=== PATIENT | male | born 1955 | race Caucasian/White ===

== ENCOUNTER → 2018-01-20 09:50 | Outpatient (CLI) | payer OTHER, SELFPAY ==
[2018-01-20 12:39] LABS: Absolute Lymphocyte Count 0.87 X10^3/ul (0.83-4.51); Absolute Neutrophil Count 4.4 X10^3/uL (2.0-7.7); Basophil# 0.01 X10^3/uL; Basophil% 0.2 % (0-1); Eosinophil# 0.24 X10^3/uL; Eosinophils% 3.9 % (0-5); Hematocrit 42.6 % (40-54); Hemoglobin 14.6 g/dl (13.0-16.5); Lymphocyte # 0.87 X10^3/ul (4.0); Lymphocyte % 14.2 % (19-41); Mean Corp Hgb Conc 34.3 g/gl (32-36); Mean Corpuscular Volume 90.4 fL (80-94); Mean Platelet Vol. 9.7 fl (6.2-12.0); Monocyte# 0.63 X10^3/uL; Monocyte% 10.3 % (0-10); Neutrophil # 4.35 X10^3/uL (2.7-7.7); Neutrophil % 71.2 % (47-70); Platelet Count 156 K/mm3 (150-450); RBC Distribution Width CV 13.1 % (11.6-14.6); RBC Distribution Width SD 43.3 fl (35.1-43.9); Red Blood Count 4.71 M/mm3 (4.6-6.2); White Blood Count 6.1 K/mm3 (4.4-11.0)
[2018-01-20 13:08] LABS: ALB/GLOB Ratio 1.1 RATIO (0.9-2.4); AST(SGOT) 15 U/L (15-37); Alanine Aminotransfer ALT/SGPT 33 U/L (16-61); Albumin, Serum 3.8 g/dL (3.2-5.0); Alkaline Phosphatase 59 U/L (45-117); BUN 21 mg/dL (7-18); BUN/Creat Ratio 25.1 RATIO (10-20); Calcium,Total 8.5 mg/dL (8.5-10.1); Chloride 110 mmol/L (98-107); Cholesterol 122 mg/dL (200); Creatinine, Serum 0.84 mg/dL (0.70-1.30); EST Glomerular Filtration Rate 99 mL/min (>60); Est Glom Filt Rate - Afr Amer 119 mL/min (>60); Globulin 3.4 g/dL (2.2-4.2); Glucose 105 mg/dL (74-106); Potassium 4.1 mmol/L (3.5-5.1); Protein, Total 7.2 g/dL (6.4-8.2); Sodium Level 141 mmol/L (136-145); Triglycerides 93 mg/dL
[2018-01-20 13:09] LABS: Anion Gap 8 (5-15); High Density Lipoprotein 39 mg/dL; PSA,Total - Annual Screen 1.13 ng/mL (0.00-4.00); Very Low Density Lipoprotein 19 mg/dL (5-40)
[2018-01-20 13:10] LABS: POSITIVE COUNT NO; POSITIVE DIFFERENTIAL NO; POSITIVE MORPHOLOGY NO
== END ==
PROVIDERS: Family Provider Family Medicine; PCP Family Medicine; Visit Provider Family Medicine
DX: I25.10 Atherosclerotic heart disease of native coronary artery without angina pectoris (principal); I10 Essential (primary) hypertension; E78.5 Hyperlipidemia, unspecified; Z12.5 Encounter for screening for malignant neoplasm of prostate
CPT/HCPCS: 36415; 80053; 80061; 84153; 85025; G0103

== ENCOUNTER → 2018-12-01 06:41 | Outpatient (CLI) | payer OTHER, SELFPAY ==
--- NOTE | 2018-12-01 08:39 | STRESSREP_ITS ---
Stress Test Report Date: 12-01-18 Procedure: Exercise tolerance test/imaging study Indications: Shortness of breath/dyspnea on exertion; CAD; status post PCI Consent: Per the patient Procedure: The patient exercised on a Evan protocol for 8 minutes completing Stage II and 2 minutes of Stage III achieving a peak heart rate of 155 bpm (99 % predicted maximal heart rate) with a peak blood pressure 182/80 mmHg and a peak MET capacity of 9 METs. The baseline ECG demonstrated sinus bradycardia. The peak exercise ECG demonstrated no obvious ECG changes. There were occasional PVCs during exercise. The functional capacity was considered good. There was [no complaint of chest discomfort during exercise or recovery]. The examination was discontinued secondary to shortness of breath/dyspnea. Impression: 1. Technically adequate (percent predicted maximal heart rate greater than 85%) exercise tolerance test 2. Peak exercise ECG demonstrated no obvious ECG changes 3. There were occasional PVCs during exercise 4. Nuclear images pending Myocardial perfusion imaging study: Technique: The patient was injected with 14.3 mCi of technetium 99m Cardiolite and subsequently rest SPECT Cardiolite nuclear imaging was obtained in the horizontal long, vertical long, and short axis views. The patient exercised on a Evan protocol for 8 minutes completing Stage II and 2 minutes of Stage III achieving a peak heart rate of 155 bpm (99 % predicted maximal heart rate) with a peak blood pressure 182/80 mmHg and a peak MET capacity of 9 METs. The patient was injected with 44.6 mCi of technetium 99m Cardiolite and subsequently stress SPECT Cardiolite nuclear imaging was obtained in the horizontal long, vertical long, and short axis views. A gated Cardiolite study at peak stress was obtained. Interpretation: Rest and stress SPECT Cardiolite nuclear imaging status post realignment, normalization, and attenuation correction, demonstrates a small area of subtle diminished tracer uptake near the apical segments at rest which appear to improve and/or normalize following stress. [There is end systolic thickening and brightening]. The gated Cardiolite study demonstrates [myocardial thickening and inward wall motion]. The reported LVEF is 61 %. Impression: 1. Rest and stress SPECT Cardiolite nuclear imaging demonstrate a small area of subtle diminished tracer uptake near the apical segments at rest which appeared to improve and/or normalize following stress compatible shifting soft tissue attenuation/artifact with no obvious myocardial perfusion changes considered diagnostic for associated stress-induced myocardial ischemia. 2. The gated Cardiolite study reports an LVEF of 61 %. This note was generated with [employer] software. It may contain incorrect words, spelling, and punctuation that were not noted in checking the note before signing.
== END ==
PROVIDERS: Family Provider Family Medicine; PCP Family Medicine
DX: I25.10 Atherosclerotic heart disease of native coronary artery without angina pectoris (principal); E78.5 Hyperlipidemia, unspecified; I10 Essential (primary) hypertension; K21.9 Gastro-esophageal reflux disease without esophagitis; N52.9 Male erectile dysfunction, unspecified; R06.02 Shortness of breath; Z68.30 Body mass index [BMI] 30.0-30.9, adult
CPT/HCPCS: 78452; 93017; A9500; A4216

== ENCOUNTER → 2019-05-25 08:45 | Outpatient (CLI) | payer OTHER, SELFPAY ==
[2019-01-12 08:35] VITALS: BMI 35.6
[2019-05-25 12:43] LABS: Absolute Lymphocyte Count 0.96 X10^3/uL (0.83-4.51); Absolute Neutrophil Count 5.1 X10^3/uL (2.0-7.7); Basophil# 0.02 X10^3/uL; Basophil% 0.3 % (0-1); Eosinophil# 0.26 X10^3/uL; Eosinophils% 3.6 % (0-5); Hematocrit 44.7 % (40-54); Lymphocyte # 0.96 X10^3/ul (4.0); Lymphocyte % 13.3 % (19-41); Mean Corp Hgb Conc 33.6 g/dL (32-36); Mean Corpuscular Hgb 31.1 pg (27.0-32.0); Mean Corpuscular Volume 92.7 fL (80-94); Mean Platelet Vol. 9.5 fl (6.2-12.0); Monocyte% 12.5 % (0-10); NRBC Flagged by Analyzer 0 % (0-5); Neutrophil # 5.06 X10^3/uL (2.7-7.7); Platelet Count 170 K/mm3 (150-450); RBC Distribution Width CV 12.4 % (11.6-14.6); RBC Distribution Width SD 42.8 fl (35.1-43.9); Red Blood Count 4.82 M/mm3 (4.6-6.2); White Blood Count 7.2 K/mm3 (4.4-11.0)
[2019-05-25 13:19] LABS: ALB/GLOB Ratio 1.1 RATIO (0.9-2.4); AST(SGOT) 15 U/L (15-37); Alanine Aminotransfer ALT/SGPT 35 U/L (16-61); Alkaline Phosphatase 62 U/L (45-117); Anion Gap 8 (5-15); BUN 17 mg/dL (7-18); BUN/Creat Ratio 19.1 RATIO (10-20); Calcium,Total 8.9 mg/dL (8.5-10.1); Chloride 109 mmol/L (98-107); Cholesterol 121 mg/dL (200); Creatinine, Serum 0.89 mg/dL (0.70-1.30); EST Glomerular Filtration Rate 92 mL/min (>60); Est Glom Filt Rate - Afr Amer 111 mL/min (>60); Globulin 3.5 g/dL (2.2-4.2); Glucose 106 mg/dL (74-106); High Density Lipoprotein 38 mg/dL; PSA,Total - Annual Screen 1.38 ng/mL (0.00-4.00); Potassium 4.5 mmol/L (3.5-5.1); Protein, Total 7.5 g/dL (6.4-8.2); Sodium Level 140 mmol/L (136-145); Triglycerides 127 mg/dL; Very Low Density Lipoprotein 25 mg/dL (5-40)
== END ==
PROVIDERS: Family Provider Family Medicine; PCP Family Medicine; Visit Provider Family Medicine
DX: Z00.00 Encounter for general adult medical examination without abnormal findings (principal); Z12.5 Encounter for screening for malignant neoplasm of prostate
CPT/HCPCS: 36415; 80053; 80061; 84153; 85025; G0103

== ENCOUNTER → 2019-05-25 09:01 | Outpatient (CLI) | payer OTHER, SELFPAY ==
[2019-01-12 08:35] VITALS: BMI 35.6
--- NOTE | 2019-05-25 09:06 | RAD_ITS ---
STUDY: X-RAY - PELVIS AND RIGHT HIP REASON FOR EXAM: Male, 63 years old. Pain. No known injury. TECHNIQUE: 3 views of the pelvis and hip. COMPARISON: None. FINDINGS: There is a non-specific bowel gas pattern. Evidence of prior ventral and inguinal hernia repair. Normal bilateral iliac wings, sacroiliac joints and visualized sacrum. Normal bilateral superior and inferior pubic rami. Normal pubic symphysis. Normal bilateral ischial tuberosities. Normal visualized femoral head. Normal acetabulum. Normal hip joint. RAD/HIP, UNI W/ Pelvis 2-3 Views IMPRESSION: Normal x-ray examination of the pelvis and hip. Electronically Signed: Huber Castellanos, at 11:38 EDT , Service support ,
== END ==
PROVIDERS: Family Provider Family Medicine; PCP Family Medicine; Referring Provider Family Medicine; Visit Provider Family Medicine
DX: M16.11 Unilateral primary osteoarthritis, right hip (principal)
CPT/HCPCS: 73502

== ENCOUNTER → 2019-06-01 10:13 | Outpatient (CLI) | payer OTHER, SELFPAY ==
[2019-01-12 08:35] VITALS: BMI 35.6
--- NOTE | 2019-06-01 10:19 | RAD_ITS ---
STUDY: X-RAY - RIGHT KNEE REASON FOR EXAM: Male, 63 years old. Knee pain TECHNIQUE: 4 view(s) of the knee. COMPARISON: None. FINDINGS: Normal visualized distal femur. Normal visualized proximal tibia and fibula. Normal proximal tibiofibular articulation. Normal medial femorotibial compartment. Normal lateral femorotibial compartment. Normal patellofemoral articulation. The soft tissue structures are unremarkable. RAD/Knee 4 or More Views IMPRESSION: Normal x-ray examination of the knee. Electronically Signed: Rosmery Moody, at 17:48 EDT Tel , Service support ,
== END ==
PROVIDERS: Family Provider Family Medicine; PCP Family Medicine; Referring Provider Family Medicine; Visit Provider Family Medicine
DX: M25.561 Pain in right knee (principal)
CPT/HCPCS: 73564

== ENCOUNTER 2019-06-15 08:20 | Day surgery (SDC) | payer OTHER, SELFPAY ==
--- NOTE | 2019-06-01 03:55 | HP_ITS ---
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 Is patient in pain?: No Allergies Penicillins Allergy (Verified 06/01/19 13:42) Anaphylaxis atorvastatin [From Lipitor] Adverse Reaction (Verified 06/01/19 13:42) myalgia cefaclor [From Ceclor] Adverse Reaction (Verified 06/01/19 13:42) Unknown Opioids - Morphine Analogues Adverse Reaction (Verified 06/01/19 13:42) bradycardia tetracycline Adverse Reaction (Verified 06/01/19 13:42) Unknown Medications aspirin 81 mg tablet,delayed release 81 mg PO DAILY 01/11/19 [History Confirmed 06/01/19] coenzyme Q10 100 mg capsule 100 mg PO DAILY 01/11/19 [History Confirmed 06/01/19] multivitamin tablet 1 tab PO DAILY 01/11/19 [History Confirmed 06/01/19] nitroglycerin 0.4 mg sublingual tablet 0.4 mg SUBLINGUAL Q5-15M PRN 30 Days #8640 tab 01/11/19 [History Confirmed 06/01/19] trazodone 100 mg tablet PO 30 Days tab 01/11/19 [History Confirmed 06/01/19] ezetimibe 10 mg-simvastatin 20 mg tablet 1 tab PO DAILY 90 Days #90 tab 01/12/19 [Rx Confirmed 06/01/19] lisinopril 5 mg tablet 5 mg PO QPM 90 Days #90 tab 01/12/19 [Rx Confirmed 06/01/19] metoprolol tartrate 25 mg tablet 25 mg PO BID 90 Days #180 tab 01/12/19 [Rx Confirmed 06/01/19] pantoprazole 40 mg tablet,delayed release 40 mg PO QAM 30 Days #30 tab 01/12/19 [History Confirmed 06/01/19] omega-3 fatty acids 1,000 mg capsule 1,200 mg PO TID cap 06/01/19 [History Confirmed 06/01/19] sertraline 50 mg tablet 50 mg PO DAILY 30 Days #30 tab 06/01/19 [History Confirmed 06/01/19] PFS Medical History Atherosclerosis of coronary artery of [place] heart without angina pectoris (Chronic) Essential (primary) hypertension (Chronic) Dyslipidemia (Chronic) Heart attack (Acute) Erectile dysfunction (Chronic) GERD (gastroesophageal reflux disease) (Chronic) Obesity (Chronic) Surgical History History of coronary artery stent placement (Resolved 07/07/07) History of herniorrhaphy (Resolved) History of left heart catheterization (Resolved 10/03/17) Family History Brother Heart disease Brother Heart disease Father Cancer Mother CAD (coronary artery disease) CABGx x 3 Social History (Updated 06/01/19 @ 15:55 by Anson Watson MD) Smoking Status: Former smoker HPI HPI HPI: SALTY MARTÍNEZ, is a 63 M who presents to the office today for HPI HPI Surgical H&P: Yes HPI: SALTY MARTÍNEZ, is a 63 M who presents to the office today for surgical consultation regarding colon polyps. Very pleasant 63-year-old gentleman who presents today to help pursue a colonoscopy. He has had 2 previous colonoscopies one performed by Dr. Alejandro Ulloa and the most recent one performed by Dr. Chidi Moreno on May 14, 2016. The patient has no family history of colon cancer. On the most recent colonoscopy however there were 310 mm polyps identified. These were found in the transverse colon distally. They were removed with hot snare. Multiple diverticula of the sigmoid colon identified. The pathology set suggested tubular adenoma and there were 2 specimens received. The patient denies bright red blood per rectum or melena. No abdominal pain. 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 Patient does have a history of 2 remote coronary stents. Medications include aspirin and fish oil. He has been asked to hold the fish oil. This very pleasant is a [employer] employee It is of additional note that the patient describes 5 previous episodes of suspected sigmoid diverticulitis. Patient does not recall particular food as a causative agent. He currently denies abdominal pain. He has had at least 2 significant courses of ciprofloxacin metronidazole in the past to assist ROS General General: No weight change, appetite, fatigue, colon cancer, breast cancer or weakness HEENT HEENT: No difficulty swallowing, eye injury, eye surgery, swollen glands or hoarseness Endo Endocrine: No thyroid disease, diabetes mellitus, thyroid cancer, Hair loss, heat intolerance or cold intolerance Skin Skin: No rash or changing moles Breast Breast: No left breast lump, right breast lump, nipple discharge, breast pain, abnormal mammogram, abnormal US or breast enlargement Musc Musculoskeletal: No back problems, arthritis, rheumatoid arthritis, gout or joint pain Cardio Cardiovascular: Yes heart disease, high blood pressure, heart attack and heart stent; no murmur, pacemaker, atrial fibrillation, palpitations, shortness of breat with exertion or chest pain Psych Psychiatric: Yes anxiety; no depression or hearing voices Resp Respiratory: No shortness of breath, No sleep apnea, No cough, No COPD, No asthma, No emphysema, No wheezing Gastro Gastrointestinal: No abdominal pain, No nausea or vomiting, No diarrhea, No constipation, No blood in stool, Yes acid reflux, No hemorrhoids, No ulcers, No gallbladder problem, No black,tarry stools Brady Hematologic: Yes blood thinners, No blood disorders, No bleeding, No anemia, No blood clots Neuro Neurologic: No system reviewed and no additional complaints, except as docu, No as per HPI, No abnormal walking, No abnormal hearing, No abnormal movements, No abnormal speech, No behavioral changes, No burning sensations, No confusion, No seizure-like activity, No unsteadiness, No dizziness, No localized weakness, No frequent falls, No headache(s), No lack of coordination, No loss of vision, No memory loss, No numbness, No other visual disturbances, No radiating pain, No restless legs, No sensory deficit, No fainting, No tingling, No tremor(s), No weakness, No other Exam Const General: cooperative, healthy appearing, comfortable, no acute distress Nutritional Appearance: obese Orientation: alert, awake HENMT Head: normal to inspection Chest Breast Palpation: No nipple discharge Resp Effort & Inspection: normal respiratory effort Cardio Rate: regular rate Rhythm: regular rhythm Heart Sounds: no murmurs GI Other: Overweight, normal bowel sounds, not pulsatile, very minimal tenderness to deep palpation left lower quadrant Skin General: no rashes or lesions noted Neuro Cognition: normal cognition Extrem General: no calf tenderness bilaterally Psych Affect: normal affect Assessment & Plan Problems 1. Personal history of colonic polyps Z86.010 Plan I recommended the patient a colonoscopy with possible biopsy or polypectomy as indicated. As noted we will have him hold his fish oil. He may remain on his low-dose aspirin. He is aware of the technique, benefits, risks, alternatives. He states that he was essentially awake during his most recent colonoscopy. We will utilize monitored anesthesia care. He has had an opportunity to ask and have questions answered. We will schedule and proceed at his discretion. I very much appreciate the kind opportunity of assisting with his surgical care. CC: Dr. Shan Watson M.D., F.A.C.S. Coding Level of Care Code Off vis,new,level 3 Diagnoses Personal history of colonic polyps Z86.010 06/01/19 [id number] <Electronically signed by Anson rodriguez MD> Date _ Anson Watson MD I have re-examined the patient. There are no clinical changes since date of exam.
[2019-06-01 13:52] VITALS: BMI 35.6
[2019-06-15] VITALS (9 sets, daily range): BP systolic 84–132; BP diastolic 69–79; PULSE 52–80; RESP 16; TEMP 36–36.5; O2SAT 94–98; BMI 35.8
[2019-06-15] MEDS: Lactated Ringers 1,000 ML 100 ML IV (09:01)
--- NOTE | 2019-06-15 09:30 | COLBX_PTH ---
PATIENT: SALTY MARTÍNEZ LOC: EN U#:[id number] AGE/SX: 63/M ROOM: RE06/15/[address]: Dr. Anson Watson MD : 1955 BED: DIS: 06/15/2019 SPEC #: [id number] RECD: 06/15/19 10:44 STATUS: HUAN REIsabela #: [id number] JOJO: 06/15/19 09:[address]: Anson Watson DEPT: SURGICAL PATHOLOGY RECD BY: Mohan Garcia ENTERED: 06/15/19 11:06 SP TYPE: COLON BX OT DR: Dr. hSan Shelton DO Tissues: A - Sigmoid colon biopsy B - Rectum, NOS Procedures: Surgery Specimen Level IV HEADER OPERATION: Colonoscopy (MAC) PRE-OP DIAGNOSIS: Colonic polyps TISSUE SUBMITTED: A - Mid sigmoid biopsy mucosal fullness, B - Proximal rectum polyp biopsy MICROSCOPIC DIAGNOSIS A. Mid sigmoid colon, biopsy: Fragments of colonic mucosa with no pathologic change. B. Rectal polyp, biopsy: Hyperplastic polyp. AM:mechelle 06/18/19 MICROSCOPIC DESCRIPTION Slides are reviewed. GROSS DESCRIPTION A - Received in fixative is one container labeled with the patient's name and designated mid sigmoid biopsy mucosal fullness. The specimen consists of one irregular fragment of [place] soft tissue that measures 0.4 x 0.3 x 0.1 cm. The specimen is totally submitted in one cassette. B - Received in fixative is one container labeled with the patient's name and designated proximal rectum polyp biopsy. The specimen consists of one irregular fragment of [place] soft tissue that measures 0.3 x 0.2 x 0.1 cm. The specimen is totally submitted in one cassette. / SJ:mechelle 06/15/19 TC:5 [facility]: [id number] x2
--- NOTE | 2019-06-15 10:20 | OP.ENDO_ITS ---
06/15/2019 Shan Shelton [address] [place] [address] Re : Colonoscopy procedure for Jerad Iqbal Dear Dr. Shelton This procedure was performed on Saturday, June 15, 2019. My impressions and recommendations are as follows: Impressions : - Hemorrhoids found on perianal exam. - Diverticulosis in the entire examined colon. - One 3 mm mucosal fullness in the mid sigmoid colon, removed with a cold biopsy forceps. Resected and retrieved. - One 4 mm polyp in the rectum, removed with a cold biopsy forceps. Resected and retrieved. Recommendations : - Discharge patient to home. - Resume previous diet. - Continue present medications. - Repeat colonoscopy in 5 years for surveillance based on pathology results. - Telephone my office for pathology results in 1 week. My findings are described in the full procedure note, which is enclosed. If I can be of further assistance, please feel free to contact me at Doctor phone number(s): Work: . Sincerely, Anson Watson MD 06/15/2019 10:19:41 AM This report has been signed electronically.
== END 2019-06-15 11:14 | disposition home or self-care (01) ==
LOC: EN 08:21 → AC 08:26
PROVIDERS: Family Provider Family Medicine; PCP Family Medicine; Referring Provider Family Medicine; Visit Provider Surgery
PROC: 0DJD8ZZ Inspection of Lower Intestinal Tract, Via Natural or Artificial Opening Endoscopic (ICD-10-PCS; CPT 45378; principal; 2019-06-15 09:25)
DX: Z12.11 Encounter for screening for malignant neoplasm of colon (principal); Z86.010 Personal history of colon polyps; I25.10 Atherosclerotic heart disease of native coronary artery without angina pectoris; I10 Essential (primary) hypertension; E78.5 Hyperlipidemia, unspecified; I25.2 Old myocardial infarction; K21.9 Gastro-esophageal reflux disease without esophagitis; E66.9 Obesity, unspecified; Z68.36 Body mass index [BMI] 36.0-36.9, adult; Z79.899 Other long term (current) drug therapy; Z79.82 Long term (current) use of aspirin; Z87.891 Personal history of nicotine dependence; K57.30 Diverticulosis of large intestine without perforation or abscess without bleeding; Z95.5 Presence of coronary angioplasty implant and graft; K62.1 Rectal polyp; K64.9 Unspecified hemorrhoids
CPT/HCPCS: 45380; 88305; J7120; J2405

== ENCOUNTER → 2020-03-25 13:18 | Outpatient (CLI) | payer OTHER, MEDICARE, SELFPAY ==
[2020-01-18 10:29] VITALS: BMI 27.8
[2020-03-30 20:07] LABS: Testosterone, Free 7.04 ng/dL (5.00-21.00)
[2020-03-30 22:57] LABS: Testosterone, % Free 2.09 % (1.50-4.20); Testosterone, Total 337 ng/dL (264-916)
== END ==
PROVIDERS: PCP Family Medicine; Visit Provider Family Medicine
DX: N52.9 Male erectile dysfunction, unspecified (principal)
CPT/HCPCS: 36415; 84402; 84403

== ENCOUNTER → 2020-06-10 08:38 | Outpatient (CLI) | payer OTHER, SELFPAY ==
[2020-01-18 10:29] VITALS: BMI 27.8
[2020-06-10 11:48] LABS: Absolute Lymphocyte Count 1.55 X10^3/uL (0.83-4.51); Absolute Neutrophil Count 4.3 X10^3/uL (2.0-7.7); Basophil# 0.04 X10^3/uL; Basophil% 0.6 % (0-1); Eosinophil# 0.32 X10^3/uL; Eosinophils% 4.5 % (0-5); Hematocrit 46.2 % (40-54); Hemoglobin 15.2 g/dL (13.0-16.5); Lymphocyte # 1.55 X10^3/ul (4.0); Lymphocyte % 21.8 % (19-41); Mean Corp Hgb Conc 32.9 g/dL (32-36); Mean Corpuscular Hgb 30.8 pg (27.0-32.0); Mean Corpuscular Volume 93.5 fL (80-94); Mean Platelet Vol. 9.5 fl (6.2-12.0); Monocyte# 0.86 X10^3/uL; Monocyte% 12.1 % (0-10); NRBC Flagged by Analyzer 0 % (0-5); Neutrophil # 4.31 X10^3/uL (2.7-7.7); Neutrophil % 60.7 % (47-70); Platelet Count 197 K/mm3 (150-450); RBC Distribution Width CV 12.5 % (11.6-14.6); RBC Distribution Width SD 43.1 fl (35.1-43.9); Red Blood Count 4.94 M/mm3 (4.6-6.2); White Blood Count 7.1 K/mm3 (4.4-11.0)
[2020-06-10 12:07] LABS: AST(SGOT) 22 U/L (15-37); Alanine Aminotransfer ALT/SGPT 41 U/L (16-61); Albumin, Serum 3.8 g/dL (3.2-5.0); Alkaline Phosphatase 70 U/L (45-117); Anion Gap 7 (5-15); BUN 25 mg/dL (7-18); BUN/Creat Ratio 24.5 RATIO (10-20); Chloride 109 mmol/L (98-107); Cholesterol 128 mg/dL (200); Creatinine, Serum 1.02 mg/dL (0.70-1.30); EST Glomerular Filtration Rate 78 mL/min (>60); Est Glom Filt Rate - Afr Amer 94 mL/min (>60); Globulin 3.8 g/dL (2.2-4.2); Glucose 113 mg/dL (74-106); High Density Lipoprotein 41 mg/dL; PSA,Total - Annual Screen 1.57 ng/mL (0.00-4.00); Potassium 4.3 mmol/L (3.5-5.1); Protein, Total 7.6 g/dL (6.4-8.2); Sodium Level 140 mmol/L (136-145); Triglycerides 132 mg/dL; Very Low Density Lipoprotein 26 mg/dL (5-40)
[2020-06-11 09:52] LABS: Hemoglobin A1c 5.6 % (3.8-5.6)
== END ==
PROVIDERS: PCP Family Medicine; Visit Provider Family Medicine
DX: I10 Essential (primary) hypertension (principal); E78.5 Hyperlipidemia, unspecified; Z12.5 Encounter for screening for malignant neoplasm of prostate; R73.01 Impaired fasting glucose
CPT/HCPCS: 36415; 80053; 80061; 83036; 84153; 85025; G0103

== ENCOUNTER → 2020-10-24 14:48 | Outpatient (CLI) | payer SELFPAY ==
[2020-01-18 10:29] VITALS: BMI 27.8
== END ==
PROVIDERS: PCP Family Medicine; Visit Provider Family Medicine
DX: R31.9 Hematuria, unspecified (principal)
CPT/HCPCS: 87086

== ENCOUNTER → 2021-01-20 10:28 | Outpatient (CLI) | payer MEDICARE, BC, SELFPAY ==
[2021-01-20 09:08] VITALS: BMI 38.0
[2021-01-20 12:26] LABS: AST(SGOT) 29 U/L (15-37); Alanine Aminotransfer ALT/SGPT 40 U/L (16-61); Albumin, Serum 3.7 g/dL (3.2-5.0); Alkaline Phosphatase 63 U/L (45-117); Bilirubin, Direct 0.11 mg/dL (0.00-0.30); Cholesterol 150 mg/dL (200); Globulin 3.5 g/dL (2.2-4.2); High Density Lipoprotein 41 mg/dL; Protein, Total 7.2 g/dL (6.4-8.2); Triglycerides 192 mg/dL; Very Low Density Lipoprotein 38 mg/dL (5-40)
== END ==
PROVIDERS: PCP Family Medicine; Referring Provider Internal Medicine Cardiovascular Disease; Visit Provider Internal Medicine Cardiovascular Disease
DX: E78.00 Pure hypercholesterolemia, unspecified (principal)
CPT/HCPCS: 36415; 80061; 80076

== ENCOUNTER → 2021-08-11 07:34 | Outpatient (CLI) | payer MEDICARE, BC, SELFPAY ==
--- NOTE | 2021-08-11 07:35 | AAAS_ITS ---
Reason For Study: screening Aorta Measurements Aorta Doppler Measurements Proximal aorta measures1.96 x 2.01cm. in cross- Peak systolic flow velocities within the proximal sectional axis. aorta measure 77.1 cm/sec. Proximal aorta measures1.96cm. in longitudinal Peak systolic flow velocities within the mid aorta axis. measure 80.7 cm/sec. Mid aorta measures1.83 x 2.16cm. in cross- Peak systolic flow velocities within the distal sectional axis. aorta measure 64.3 cm/sec. Mid aorta measures1.88cm. in longitudinal axis. Distal aorta measures1.72 x 1.89cm. in cross- sectional axis. Distal aorta measures1.81cm. in longitudinal axis. Left Iliac Artery Left iliac artery measures .96 x 1.05 cm. in the cross-sectional axis. Left iliac artery measures .99 cm. in the longitudinal axis. Peak systolic velocity in the left iliac artery measures 135.5 cm/sec. Right Iliac Artery Right iliac artery measures .98 x 1.12 cm. in the cross-sectional axis. Right iliac artery measures 1.15 cm. in the longitudinal axis. Peak systolic velocity in the right iliac artery measures 82.5 cm/sec. Procedure Aorta IVC Iliac vasculature or bypass grafts [id number]. The exam was diagnostic. Exam performed in department. VL/AAA Screening Interpretation Summary Maximal aortic dimensions approximately at 1.96 x 2.01 cm which is normal Left common iliac 0.96 x 1.05 cm normal Right common iliac 0.98 x 1.12 cm diameter normal Normal flow velocities are noted in the aorta and bilateral common iliac arteri es Ordering Physician: Shan Shelton Performed By: Ramesh Warren RVT
--- NOTE | 2021-08-11 08:20 | RAD_ITS ---
STUDY: X-RAY CHEST REASON FOR EXAM: Male, 65 years old. Family history of thoracic aortic aneurysm. TECHNIQUE: PA and lateral views of the chest. COMPARISON: March 08, 2012. FINDINGS: No focal infiltrates or effusions. No pneumothorax. Normal size heart. Normal mediastinum and jaycob. Normal visualized pulmonary arteries. Normal visualized aortic arch and descending thoracic aorta. Normal visualized thoracic spine. Normal visualized ribs, clavicles, and shoulders. There is no demonstrated abnormality of the visualized soft tissue structures of the upper abdomen. RAD/Chest PA and Lateral IMPRESSION: Normal x-ray examination of the chest. Electronically Signed: Trevor Villa MD at 4:52 EST , Service support ,
[2021-08-11 08:55] LABS: Absolute Lymphocyte Count 1.37 X10^3/uL (0.83-4.51); Absolute Neutrophil Count 4.4 X10^3/uL (2.0-7.7); Basophil# 0.04 X10^3/uL; Basophil% 0.6 % (0-1); Eosinophil# 0.26 X10^3/uL; Eosinophils% 3.8 % (0-5); Hematocrit 44.7 % (40-54); Lymphocyte # 1.37 X10^3/ul (0.83-4.51); Lymphocyte % 19.9 % (19-41); Mean Corp Hgb Conc 33.6 g/dL (32-36); Mean Corpuscular Hgb 31.2 pg (27.0-32.0); Mean Corpuscular Volume 92.9 fL (80-94); Mean Platelet Vol. 9.2 fl (6.2-12.0); Monocyte% 11.6 % (0-10); NRBC Flagged by Analyzer 0 % (0-5); Neutrophil # 4.39 X10^3/uL (2.7-7.7); Neutrophil % 63.7 % (47-70); Platelet Count 183 K/mm3 (150-450); RBC Distribution Width CV 12.1 % (11.6-14.6); RBC Distribution Width SD 41.5 fl (35.1-43.9); Red Blood Count 4.81 M/mm3 (4.6-6.2); White Blood Count 6.9 K/mm3 (4.4-11.0)
[2021-08-11 09:23] LABS: AST(SGOT) 25 U/L (15-37); Alanine Aminotransfer ALT/SGPT 44 U/L (16-61); Albumin, Serum 3.7 g/dL (3.2-5.0); Alkaline Phosphatase 64 U/L (45-117); Anion Gap 6 (5-15); BUN 21 mg/dL (7-18); BUN/Creat Ratio 20.4 RATIO (10-20); Bilirubin, Direct 0.09 mg/dL (0.00-0.30); Calcium,Total 8.8 mg/dL (8.5-10.1); Chloride 105 mmol/L (98-107); Cholesterol 133 mg/dL (200); Creatinine, Serum 1.03 mg/dL (0.70-1.30); EST Glomerular Filtration Rate 77 mL/min (>60); Est Glom Filt Rate - Afr Amer 93 mL/min (>60); Globulin 3.9 g/dL (2.2-4.2); Glucose 121 mg/dL (74-106); High Density Lipoprotein 38 mg/dL; Potassium 4.4 mmol/L (3.5-5.1); Protein, Total 7.6 g/dL (6.4-8.2); Sodium Level 138 mmol/L (136-145); Triglycerides 188 mg/dL; Very Low Density Lipoprotein 38 mg/dL (5-40)
[2021-08-11 09:29] LABS: Hemoglobin A1c 5.5 % (3.8-5.6)
== END ==
PROVIDERS: Internal Medicine Cardiovascular Disease; PCP Family Medicine; Referring Provider Family Medicine; Visit Provider Family Medicine
DX: I10 Essential (primary) hypertension (principal); R73.01 Impaired fasting glucose; Z12.5 Encounter for screening for malignant neoplasm of prostate; E78.00 Pure hypercholesterolemia, unspecified; E78.5 Hyperlipidemia, unspecified
CPT/HCPCS: 71046; 76706; 80048; 80061; 80076; 83036; 84153; 85025; G0103

== ENCOUNTER → 2022-03-23 | Outpatient (CLI) | payer MEDICARE, BC, SELFPAY ==
[2022-03-23 15:32] LABS: AST(SGOT) 17 U/L (15-37); Alanine Aminotransfer ALT/SGPT 33 U/L (16-61); Albumin, Serum 3.7 g/dL (3.2-5.0); Alkaline Phosphatase 62 U/L (45-117); Bilirubin, Direct 0.13 mg/dL (0.00-0.30); Cholesterol 116 mg/dL (200); Globulin 3.6 g/dL (2.2-4.2); High Density Lipoprotein 41 mg/dL; Protein, Total 7.3 g/dL (6.4-8.2); Triglycerides 95 mg/dL; Very Low Density Lipoprotein 19 mg/dL (5-40)
== END | disposition home or self-care (01) ==
LOC: LAB 13:58
PROVIDERS: PCP Family Medicine; Referring Provider Internal Medicine Cardiovascular Disease; Visit Provider Internal Medicine Cardiovascular Disease
DX: E78.5 Hyperlipidemia, unspecified (principal)
CPT/HCPCS: 36415; 80061; 80076

== ENCOUNTER → 2022-08-02 | Outpatient (CLI) | payer MEDICARE, BC, SELFPAY ==
[2022-08-02 12:43] LABS: Absolute Lymphocyte Count 1.44 X10^3/uL (0.83-4.51); Absolute Neutrophil Count 7.1 X10^3/uL (2.0-7.7); Basophil# 0.07 X10^3/uL; Basophil% 0.7 % (0-1); Hematocrit 45.7 % (40-54); Hemoglobin 14.9 g/dL (13.0-16.5); Lymphocyte # 1.44 X10^3/ul (0.83-4.51); Lymphocyte % 14.4 % (19-41); Mean Corp Hgb Conc 32.6 g/dL (32-36); Mean Corpuscular Hgb 30.4 pg (27.0-32.0); Mean Corpuscular Volume 93.3 fL (80-94); Mean Platelet Vol. 9.1 fl (6.2-12.0); Monocyte# 0.88 X10^3/uL; Monocyte% 8.8 % (0-10); NRBC Flagged by Analyzer 0 % (0-5); Neutrophil # 7.07 X10^3/uL (2.7-7.7); Neutrophil % 70.6 % (47-70); Platelet Count 281 K/mm3 (150-450); RBC Distribution Width CV 11.9 % (11.6-14.6); RBC Distribution Width SD 41.1 fl (35.1-43.9)
[2022-08-02 12:47] LABS: Color, Urine Yellow (Yellow); Glucose, Dipstick Normal (Normal); Ketone-Dipstick 5 mg/dl (Negative); Leukocyte Esterase-Dipstick 25 /ul (Negative); Nitrite-Dipstick Negative (Negative); Occult Blood-Urine 10 /ul (Negative); Protein-Dipstick 15 mg/dl (Negative); Specific Gravity, Urine 1.025 (1.002-1.030); Urine Bilirubin Dipstick Negative (Negative); Urine Clarity Clear (Clear); Urine Urobilinogen Normal (Normal)
[2022-08-02 13:03] LABS: Anion Gap 5 (5-15); BUN 20 mg/dL (7-18); BUN/Creat Ratio 21.7 RATIO (10-20); Calcium,Total 9.3 mg/dL (8.5-10.1); Chloride 107 mmol/L (98-107); Creatinine, Serum 0.92 mg/dL (0.70-1.30); EST Glomerular Filtration Rate 87 mL/min (>60); Est Glom Filt Rate - Afr Amer 105 mL/min (>60); Glucose 118 mg/dL (74-106); PSA,Total - Annual Screen 2.08 ng/mL (0.00-4.00); Potassium 4.2 mmol/L (3.5-5.1); Sodium Level 139 mmol/L (136-145)
== END | disposition home or self-care (01) ==
LOC: BFHLAB 09:10
PROVIDERS: PCP Family Medicine; Visit Provider Family Medicine
DX: Z12.5 Encounter for screening for malignant neoplasm of prostate (principal); I25.10 Atherosclerotic heart disease of native coronary artery without angina pectoris; I10 Essential (primary) hypertension; R82.90 Unspecified abnormal findings in urine
CPT/HCPCS: 36415; 80048; 81002; 84153; 85025; G0103

== ENCOUNTER → 2023-02-17 | Outpatient (CLI) | payer MEDICARE, BC, SELFPAY ==
[2023-02-17 12:02] LABS: AST(SGOT) 20 U/L (15-37); Alanine Aminotransfer ALT/SGPT 32 U/L (16-61); Albumin, Serum 3.8 g/dL (3.2-5.0); Alkaline Phosphatase 63 U/L (45-117); Bilirubin, Direct 0.14 mg/dL (0.00-0.30); Cholesterol 132 mg/dL (200); Globulin 3.8 g/dL (2.2-4.2); High Density Lipoprotein 40 mg/dL; Protein, Total 7.6 g/dL (6.4-8.2); Triglycerides 188 mg/dL; Very Low Density Lipoprotein 38 mg/dL (5-40)
== END | disposition home or self-care (01) ==
LOC: LAB 09:58
PROVIDERS: PCP Family Medicine; Referring Provider Nurse Practitioner Family; Visit Provider Nurse Practitioner Family
DX: E78.00 Pure hypercholesterolemia, unspecified (principal)
CPT/HCPCS: 36415; 80061; 80076

== ENCOUNTER → 2023-05-17 | Outpatient (CLI) | payer MEDICARE, BC, SELFPAY ==
--- NOTE | 2023-05-17 12:28 | STRESSREP_ITS ---
Stress Test Report Exercise myocardial perfusion stress test. 67-year-old man with a history of dyspnea on exertion Stress protocol: Resting EKG demonstrates normal sinus rhythm with a rate of 63 bpm resting blood pressure is 140/90 mmHg. The patient exercised according to the regular Evan protocol for a total duration of 7 minutes and 15 seconds attaining a maximum heart rate of 166 bpm which was 109% of maximum predicted heart rate; the maximum workload was 10.1 metabolic equivalents. At rest there were no ST or T wave changes noted to suggest ischemia and at peak exercise upsloping ST changes only were noted which did not meet the criteria for ischemia. No clinical angina was noted the test was terminated due to the target heart rate being achi eved/fatigue. The peak blood pressure was 196/92 mmHg. Rate-pressure product was 23,000. Myocardial perfusion protocol. 14.8 mCi of technetium 99m sestamibi was injected at rest. The patient exerc ised according to regular Evan protocol for total duration of 7 minutes and 15 seconds and at peak exercise 44.4 mCi of technetium 99m sestamibi was injected stress images were obtained stress and rest images were reconstructed in comparing the short axis vertical long and horizontal long axis. Gated images were also obtained. Perfusion SPECT analysis: Review of the stress images demonstrate normal uptake of tracer noted in all areas of the myocardium. The resting images similarly demonstrate normal uptake of tracer noted in all areas of the myocardium. No areas of reversibility are noted to suggest ischemia no previous infarct was noted. Gated SPECT analysis: The gated ejection fraction is 58%. Conclusion: Normal exercise myocardial perfusion stress test at a moderate to high workload Preserved ejection fraction.
== END | disposition home or self-care (01) ==
PROVIDERS: PCP Family Medicine; Referring Provider Internal Medicine Cardiovascular Disease; Visit Provider Internal Medicine Cardiovascular Disease
DX: R06.02 Shortness of breath (principal)
CPT/HCPCS: 78452; 93017; A9500; A4216

== ENCOUNTER → 2023-06-29 | Outpatient (CLI) | payer MEDICARE, BC, SELFPAY ==
--- NOTE | 2023-06-29 07:32 | CT_ITS ---
STUDY: CT ABDOMEN AND PELVIS WITHOUT CONTRAST REASON FOR EXAM: Male, 67 years old. MICROSCOPIC HEMATURIA RADIATION DOSAGE (If Supplied By Facility): CTDIvol = ( 20.50 ) mGy, DLP = ( 1075.49 ) mGycm TECHNIQUE: Transaxial images were obtained from the dome of the diaphragm to the symphysis pubis without oral contrast, and without intravenous contrast. Sagittal and coronal images were reconstructed. Individualized dose optimization techniques were used for this CT. COMPARISON: None. FINDINGS: The visualized lung bases are unremarkable. There is partial visualization of the right coronary artery which is showing calcification. The liver is mildly enlarged fatty infiltrated with focal area of hyperdensity towards the fawn hepatis that may represent a focus of sparing in the setting of fatty infiltration. There is a hypertrophied appearance of the caudate which contains a cyst measuring 1.2 x 1.2 cm. There is a punctate stone in the dependent portion of the gallbladder. Normal spleen. Normal pancreas. Normal bilateral adrenal glands. There is a 3.7 mm stone in the anterior aspect of the right kidney. There is a cyst in the medial aspect of the right kidney measuring 2.2 x 1.5 cm with Hounsfield units in the range of simple fluid. There is a small exophytic cyst right kidney with slightly complex Hounsfield units suggesting possible small proteinaceous cyst that measures approximately 7 mm . There is no hydronephrosis. There is an exophytic cyst left kidney measuring 3.7 x 4.0 cm. There is a lower pole exophytic cyst measuring 3 x 3 cm. There is a 1 cm cyst left kidney. There is no hydronephrosis. There is a small hiatal hernia. Normal small intestine. There is moderate stool within the colon. There is diverticulosis without visualized diverticulitis. There is postoperative change at the level of the bilateral inguinal canals and multiple coiled surgical clips compatible with hernia mesh. The appendix is visualized and appears normal. Aorta is partially calcified. Normal inferior vena cava. Normal retroperitoneum. Normal urinary bladder. The prostate measures 4.2 x 3.6 cm and contains a stone. There is mild body wall edema. There is mild multilevel spondylosis. At the level of L4-L5 there is disc space narrowing and broad disc osteophyte mild neural foramina narrowing minimal central stenosis. There is degenerative change of the SI joints. CT/Abdomen/Pelvis without Cont IMPRESSION: There is a 3.7 mm stone right kidney. There is no hydronephrosis. There are no stones along the course of the ureters or in the bladder. There are multiple bilateral renal cysts. There is a cyst in the inferior aspect of the right kidney with minimally complex Hounsfield units measuring approximately 7 mm. Could consider further evaluation with ultrasound. Given the small size it may not be visible by ultrasound. Recommend correlation with clinical history and consideration for follow-up MRI of the kidneys with a renal mass protocol if appropriate. Mild hepatic enlargement. Mild hepatic steatosis with fatty sparing. Benign-appearing cysts caudate. Moderate constipation. Diverticulosis no diverticulitis. No appendicitis. Bilateral inguinal canal hernia repair. Electronically Signed: Sindy Wasserman MD at 14:09 EST ,
== END | disposition home or self-care (01) ==
LOC: CT 07:28
PROVIDERS: PCP Family Medicine; Referring Provider Family Medicine; Visit Provider Family Medicine
DX: R31.29 Other microscopic hematuria (principal)
CPT/HCPCS: 74176

== ENCOUNTER → 2023-09-16 | Outpatient (CLI) | payer MEDICARE, BC, SELFPAY ==
[2023-09-16 12:19] LABS: Absolute Lymphocyte Count 1.67 X10^3/uL (0.83-4.51); Basophil# 0.05 X10^3/uL; Basophil% 0.6 % (0-1); Eosinophil# 0.47 X10^3/uL; Eosinophils% 5.9 % (0-5); Hematocrit 45.1 % (40-54); Hemoglobin 15.1 g/dL (13.0-16.5); Lymphocyte # 1.67 X10^3/ul (0.83-4.51); Lymphocyte % 20.9 % (19-41); Mean Corp Hgb Conc 33.5 g/dL (32-36); Mean Corpuscular Hgb 30.2 pg (27.0-32.0); Mean Corpuscular Volume 90.2 fL (80-94); Mean Platelet Vol. 9.6 fl (6.2-12.0); NRBC Flagged by Analyzer 0 % (0-5); Neutrophil # 4.96 X10^3/uL (2.7-7.7); Neutrophil % 62.2 % (47-70); Platelet Count 178 K/mm3 (150-450); RBC Distribution Width SD 39.5 fl (35.1-43.9)
[2023-09-16 13:02] LABS: AST(SGOT) 15 U/L (15-37); Alanine Aminotransfer ALT/SGPT 32 U/L (16-61); Albumin, Serum 3.8 g/dL (3.2-5.0); Alkaline Phosphatase 66 U/L (45-117); Anion Gap 5 (5-15); BUN 23 mg/dL (7-18); BUN/Creat Ratio 23.6 RATIO (10-20); Bilirubin, Direct 0.16 mg/dL (0.00-0.30); Calcium,Total 9.1 mg/dL (8.5-10.1); Chloride 107 mmol/L (98-107); Cholesterol 138 mg/dL (200); Creatinine, Serum 0.97 mg/dL (0.70-1.30); EST Glomerular Filtration Rate 81 mL/min (>60); Est Glom Filt Rate - Afr Amer 98 mL/min (>60); Globulin 3.5 g/dL (2.2-4.2); Glucose 114 mg/dL (74-106); High Density Lipoprotein 39 mg/dL; PSA,Total - Annual Screen 1.56 ng/mL (0.00-4.00); Potassium 4.2 mmol/L (3.5-5.1); Protein, Total 7.3 g/dL (6.4-8.2); Sodium Level 139 mmol/L (136-145); Triglycerides 169 mg/dL; Very Low Density Lipoprotein 34 mg/dL (5-40)
== END | disposition home or self-care (01) ==
LOC: MTLAB 10:35
PROVIDERS: Nurse Practitioner Family; PCP Family Medicine; Referring Provider Family Medicine; Visit Provider Family Medicine
DX: I25.10 Atherosclerotic heart disease of native coronary artery without angina pectoris (principal); I10 Essential (primary) hypertension; Z12.5 Encounter for screening for malignant neoplasm of prostate; E78.00 Pure hypercholesterolemia, unspecified
CPT/HCPCS: 36415; 80048; 80061; 80076; 84153; 85025; G0103

== ENCOUNTER → 2023-10-05 | Outpatient (CLI) | payer MEDICARE, BC, SELFPAY ==
--- NOTE | 2023-10-05 06:57 | MRI_ITS ---
STUDY: MRI BRAIN WITH AND WITHOUT CONTRAST REASON FOR EXAM: Male, 67 years old. PERSISTENT VENTURA, [facility] BRAIN CANCER TECHNIQUE: Standardized multiplanar fat and water weighted pulse sequences were obtained. 23ML IV CLARISCAN was administered for the contrast portion of the examination. Mild motion artifact is present on the postcontrast images. COMPARISON: None. FINDINGS: There is mild cerebral atrophy with widening of the extra-axial spaces and ventricular dilatation. There are a limited number of small white matter hyperintensities, distributed throughout the deep white matter tracts of the cerebral hemispheres, consistent with mild chronic white matter ischemic changes. Normal bilateral frontal poles, and orbital frontal and gyrus recti of the frontal lobes. Normal bilateral temporal tips of the temporal lobes. There are no white matter shear injuries (diffuse axonal injuries). There are no parenchymal hemorrhages or hematomas. There are no findings to suggest prior closed head parenchymal injury of the brain. There are no demyelinating plagues of the supratentorial brain, brainstem or cerebellum. There are no findings suspicious for multiple sclerosis (MS). There is no evidence for recent intracranial ischemia or other cause of cytotoxic edema on diffusion weighted imaging (DWI). There are no visualized ring-enhancing lesions of the brain parenchyma. There is no abnormal thickening or enhancement of meninges or dura. No skull lesions are present. No midline shift or hydrocephalus is seen. No focal vasogenic edema or infiltrative process is seen. Normal bilateral basal ganglia. Normal thalami. There is no extra-axial fluid accumulation. Normal flow voids within the major intracranial circulation suggesting patency by spin echo criteria. Normal venous enhancement. There is no enhancing intra-axial or extra-axial abnormality. Normal sella turcica, pituitary gland, infundibular stalk, optic chiasm and hypothalamus. Normal tectal plate and pineal gland. Normal midbrain, raz and medulla. Normal cerebellum. Normal basal cisterns. Normal bilateral temporal bones. Normal bilateral internal auditory canals. No demonstrated orbital abnormality, within the constraints of a routine brain study. Normal visualized paranasal sinuses. Normal calvarium and skull base. Normal visualized soft tissue structures. Normal visualized upper cervical spine. MRI/Brain W/WO Contrast IMPRESSION: 1. Involutional changes of the brain, as described above. 2. There are no visualized ring-enhancing lesions of the brain parenchyma. There is no abnormal thickening or enhancement of meninges or dura. No skull lesions are present. 3. No midline shift or hydrocephalus is seen. 4. No focal vasogenic edema or infiltrative process is seen. Electronically Signed: Tommy Jain MD at 10:06 [facility] ,
== END | disposition home or self-care (01) ==
LOC: MRI 06:52
PROVIDERS: PCP Family Medicine; Referring Provider Family Medicine; Visit Provider Family Medicine
DX: R51.9 Headache, unspecified (principal); Z80.8 Family history of malignant neoplasm of other organs or systems
CPT/HCPCS: 70553; A9575

== ENCOUNTER 2024-07-31 08:00 | Day surgery (SDC) | payer MEDICARE, BC, SELFPAY ==
[2024-07-31] VITALS (7 sets, daily range): BP systolic 109–148; BP diastolic 71–88; PULSE 58–72; RESP 16–18; TEMP 36.3–36.9; O2SAT 93–98; BMI 37.3
--- NOTE | 2024-07-31 08:19 | PRE.ANES_ITS ---
ASA Classification* ASA Classification ASA Classification: 3 Assessment & Plan Anesthesia* Anesthesia Assessment Anesthesia Assessment: Discussed sedation and/or anesthesia options, risks, benefits, and alternatives with patient/parents/legal guardian/POA. Questions invited. The patient/parents/legal guardian/POA seems to understand and agrees to proceed with anesthesia plan. Reviewed the physical assessment, medical history, allergy history and patient home medications list prior to surgery/procedure/anesthetic and documented any changes. Performed airway and anesthesia risk assessments. Anesthesia Type Anesthesia Type: MAC Anesthesia Focused Assessment* Airway Assessment Mouth opens: >3 cm Mallampati Score: II Focused Labs Anesthesia Preop lab: CBC WBC 8.0 K/mm3 (4.4-11.0) 09/16/23 10:53 RBC 5.00 M/mm3 (4.6-6.2) 09/16/23 10:53 Hgb 15.1 g/dL (13.0-16.5) 09/16/23 10:53 Hct 45.1 % (40-54) 09/16/23 10:53 Plt Count 178 K/mm3 (150-450) 09/16/23 10:53 CHEMISTRY Potassium 4.2 mmol/L (3.5-5.1) 09/16/23 10:51 Sodium 139 mmol/L (136-145) 09/16/23 10:51 BUN 23 mg/dL (7-18) H 09/16/23 10:51 Creatinine 0.97 mg/dL (0.70-1.30) 09/16/23 10:51 Glucose 114 mg/dL (74-106) H 09/16/23 10:51 TSH 1.72 uIU/mL (0.358-3.74) 03/26/16 11:25 COAG Pre-Assessment Diagnosis/Proposed Procedure Planned Operative Procedure(s): CSCOPE Anesthesia History Anesthesia History - technology program manager: Anesthesia History - technology program manager Hx Hospitalization No 07/27/24 12:59 Any Problems With Anesthesia No 07/27/24 12:59 Cholinesterase deficiency No 07/27/24 12:59 You/Your Family Experience No 07/27/24 12:59 fever (hyperthermia) with Relationship Recent Exposure to Contagious No 06/15/19 08:49 Disease Does patient have nerve No 07/27/24 12:59 stimulator Patient instructed to have device shut off --Does patient have Pacemaker or ICD? When Was Last Pacemaker Check QUESTION #4 FULL TEXT: You/Your Family Experience fever (hyperthermia) with Anesthesia Last Oral Intake Last Oral intake: Last Oral Intake NPO since Meds taken in AM with sips of water? Meds patient instructed to take am of surgery PONV PONV - technology program manager: PONV - technology program manager Female No 07/27/24 12:59 HX of Motion Sickness No 07/27/24 12:59 HX of N/V After Surgery No 07/27/24 12:59 Non-Smoker Yes 07/27/24 12:59 Duration of Surgery greater No 07/27/24 12:59 than 60 minutes Number of Risk Factors 1 07/27/24 12:59 PONV Score Low Risk 07/27/24 12:59 Height & Weight Height & Weight: Anesthesia: Height & Weight Height 5 ft 11 in 06/07/24 09:09 Respiratory Assessment Respiratory Assessment - technology program manager: Respiratory Tract Infection Hx - technology program manager Hx Respiratory Tract Infection No 07/27/24 12:59 STOP Sleep Apnea STOP Sleep Apnea - technology program manager: STOP Sleep Apnea - technology program manager Hx Hypertension Yes: controlled on meds 07/27/24 12:59 Hx Sleep Apnea No 07/27/24 12:59 CPAP No 07/27/24 12:59 BIPAP Do you snore loudly (louder No 07/27/24 12:59 than talking or can be heard Do you often feel tired/ No 07/27/24 12:59 fatigued/ sleepy during daytime? Has anyone observed you stop No 07/27/24 12:59 breathing during sleep? STOP Results Negative 07/27/24 12:59 QUESTION #5 FULL TEXT : Do you snore loudly (louder than talking or can be heard through closed doors)? 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 Specify any problems Hx of Preganancy in last 3 N/A 07/27/24 12:59 Months Nurse Filling Out Transfusion NBUCHER 07/27/24 12:59 & Questions: Date: 07/27/24 07/27/24 12:59 Time: 13:00 07/27/24 12:59 Patient unable to answer at this time (ie. confused, unrespo /Reproduction History /Reproductive History - technology program manager: /Reproductive Hx- technology program manager Hx Now Gestational Age (in weeks): EDC: Hx Hx Para Hx Section SAB PFSH Medical History Wears hearing aid Loss of hearing Wears glasses Depression History of kidney stones High cholesterol Diverticulosis History of diverticulitis Former smoker Hypertension Cardiology follow-up encounter History of stress test Personal history of colonic polyps Obesity Erectile dysfunction GERD (gastroesophageal reflux disease) Atherosclerosis of coronary artery of [place] heart without angina pectoris Essential (primary) hypertension Dyslipidemia Home Medications ?Medication ?Instructions ?Recorded ?Last Taken ?Type aspirin 81 mg tablet,delayed 81 mg PO DAILY 01/11/19 Unknown History release (Adult Low Dose Aspirin) multivitamin 1 tab PO DAILY 01/11/19 Unknown History pantoprazole 40 mg tablet,delayed 40 mg PO QAM 30 days #30 tabs 01/12/19 06/15/19 06:30 History release sertraline 50 mg tablet 50 mg PO DAILY 30 days #30 tabs 06/01/19 Unknown History omega-3 fatty acids 1,000 mg 2,000 mg PO QHS 01/20/21 Unknown History capsule (Fish Oil Concentrate) ezetimibe 10 mg-simvastatin 20 mg See Rx Instructions .Route 02/06/24 Unknown Rx tablet .COMPLEX #90 tabs lisinopril 5 mg tablet 5 mg PO DAILY #90 tabs 02/06/24 Unknown Rx metoprolol tartrate 25 mg tablet 25 mg PO BID #180 tabs 02/06/24 Unknown Rx nitroglycerin 0.4 mg sublingual 0.4 mg sublingual Q5-15M PRN 02/06/24 Unknown Rx tablet Cardiac/Chest Pain 30 days #25 tabs sildenafil 100 mg tablet 100 mg PO ONCE PRN sexual activity 02/06/24 Unknown History coenzyme Q10 50 mg capsule (Co 50 mg PO QDAY 06/07/24 Unknown History Q-10) Allergy/AdvReac Type Severity Reaction Status Date / Time Penicillins Allergy Anaphylaxis Verified 07/27/24 12:55 atorvastatin (From Lipitor) AdvReac myalgia Verified 07/27/24 12:55 cefaclor (From Ceclor) AdvReac Unknown Verified 07/27/24 12:55 Opioids - Morphine Analogues AdvReac bradycardia Verified 07/27/24 12:55 tetracycline AdvReac Unknown Verified 07/27/24 12:55 Family History Brother Heart disease Myocardial infarction, Onset Age: 46 from [place] CAD (coronary artery disease) STENTS Colon polyps Brother Heart disease Myocardial infarction, Onset Age: 50 CAD (coronary artery disease) CABG Colon polyps Father Cancer Mother CAD (coronary artery disease) CABGx x 3 Colon polyps Other Atherosclerosis of coronary artery of [place] heart without angina pectoris Dyslipidemia Essential (primary) hypertension History of coronary artery stent placement Surgical History History of cardiac catheterization Hx of colonoscopy History of left heart catheterization (10/03/07) History of herniorrhaphy History of coronary artery stent placement (07/07/07) Social History household members: spouse current occupational status: retired Smoking Status: Former smoker how long ago did patient quit smokin years ago alcohol intake: current alcohol intake frequency: 0-2 drinks per day Alcohol type: beer substance use type: does not use caffeine: Yes Type: coffee Number of servings: 3 Review of Systems (Anesthesia) ROS Narrative System reviewed and no additional complaints, except as documented.
--- NOTE | 2024-07-31 08:33 | HP.PCM_ITS ---
HPI - General HPI Narrative SALTY MARTÍNEZ, is a 68 M who presents for surveillance colonoscopy. His last colonoscopy was 5 years ago and 2 polyps were removed. He denies abdominal pain or blood in the stool. [facility] Medical History (Updated 07/31/24 @ 08:[address] Giovanny Olea MD) Wears hearing aid Loss of hearing Wears glasses Depression History of kidney stones High cholesterol Diverticulosis History of diverticulitis Former smoker Hypertension Cardiology follow-up encounter History of stress test Personal history of colonic polyps Obesity Erectile dysfunction GERD (gastroesophageal reflux disease) Atherosclerosis of coronary artery of [place] heart without angina pectoris Essential (primary) hypertension Dyslipidemia Home Medications ?Medication ?Instructions ?Recorded ?Last Taken ?Type aspirin 81 mg tablet,delayed 81 mg PO DAILY 01/11/19 Unknown History release (Adult Low Dose Aspirin) multivitamin 1 tab PO DAILY 01/11/19 Unknown History pantoprazole 40 mg tablet,delayed 40 mg PO QAM 30 days #30 tabs 01/12/19 07/31/24 05:30 History release sertraline 50 mg tablet 50 mg PO DAILY 30 days #30 tabs 06/01/19 07/31/24 05:30 History omega-3 fatty acids 1,000 mg 2,000 mg PO QHS 01/20/21 Unknown History capsule (Fish Oil Concentrate) ezetimibe 10 mg-simvastatin 20 mg See Rx Instructions .Route 02/06/24 Unknown Rx tablet .COMPLEX #90 tabs lisinopril 5 mg tablet 5 mg PO DAILY #90 tabs 02/06/24 Unknown Rx metoprolol tartrate 25 mg tablet 25 mg PO BID #180 tabs 02/06/24 07/31/24 05:30 Rx nitroglycerin 0.4 mg sublingual 0.4 mg sublingual Q5-15M PRN 02/06/24 Unknown Rx tablet Cardiac/Chest Pain 30 days #25 tabs sildenafil 100 mg tablet 100 mg PO ONCE PRN sexual activity 02/06/24 Unknown History coenzyme Q10 50 mg capsule (Co 50 mg PO QDAY 06/07/24 Unknown History Q-10) Allergy/AdvReac Type Severity Reaction Status Date / Time Penicillins Allergy Anaphylaxis Verified 07/31/24 08:25 atorvastatin (From Lipitor) AdvReac myalgia Verified 07/31/24 08:25 cefaclor (From Ceclor) AdvReac Unknown Verified 07/31/24 08:25 Opioids - Morphine Analogues AdvReac bradycardia Verified 07/31/24 08:25 tetracycline AdvReac Unknown Verified 07/31/24 08:25 Family History Brother Heart disease Myocardial infarction, Onset Age: 46 from [place] CAD (coronary artery disease) STENTS Colon polyps Brother Heart disease Myocardial infarction, Onset Age: 50 CAD (coronary artery disease) CABG Colon polyps Father Cancer Mother CAD (coronary artery disease) CABGx x 3 Colon polyps Other Atherosclerosis of coronary artery of [place] heart without angina pectoris Dyslipidemia Essential (primary) hypertension History of coronary artery stent placement Surgical History History of cardiac catheterization Hx of colonoscopy History of left heart catheterization (10/03/07) History of herniorrhaphy History of coronary artery stent placement (07/07/07) Social History household members: spouse current occupational status: retired Smoking Status: Former smoker how long ago did patient quit smokin years ago alcohol intake: current alcohol intake frequency: 0-2 drinks per day Alcohol type: beer substance use type: does not use caffeine: Yes Type: coffee Number of servings: 3 Past Medical/Surgical History Planned Operation Planned Operative Procedure(s): CSCOPE S.O.S: No Previous Hospitalizations/Surgeries HX Hospitalizations: No HX of Surgeries: hernia repair approx 2006 angioplasty 2019 colonoscopy Any Problems With Anesthesia: No You/Your Family Experience Fever (Hyperthermia) With Anes: No Cholinesterase deficiency: No Cardiovascular Hx Chest Pain within Last 2 months: No Hx of Irregular Heartbeat and/or Afib: No Hx Heart Attack: Yes (06/2007) Hx Congestive Heart Failure: No Hx Rheumatic Fever: No Hx Hypertension: Yes (controlled on meds) Hx Internal Defibrillator: No Hx Pacemaker: No Hx Cardiac Catheterization: Yes (2006 at [facility], see Varun now) Hx Cardiac Surgery/Stents/Etc.: Yes Hx Stress Test: Yes (02/2019) Hx Pain in Legs when Walking/Leg Cramps: No Respiratory Chronic Cough: No HX of Shortness of Breath: No Hoarseness: No Hx Chronic Obstructive Pulmonary Disease (COPD): No Hx Asthma: No Hx Emphysema: No Hx Sleep Apnea: No CPAP: No Hx Respiratory Tract Infection/Cold (presently): No Do You Snore Loudly (louder than talking or can be heard): No Do You Often Feel Tired/ Fatigued/ Sleepy Dring Daytime?: No Has Anyone Observed You Stop Breathing During Sleep?: No Result (for STOP score): Negative Hx Smoking: Yes (quit 30 yrs ago) Smoking Status: Former smoker Gastrointestinal Controlled With Meds: Yes Hx Gastrointestinal Disorders: Yes (diverticulitis) Hx Gastrointestinal Bleed: No Hx Ulcer: No Hx Hiatal Hernia: No Difficulty Chewing/Swallowing: No Special diet followed at home: No Hx Unplanned Weight Loss of 20#: No HX Unplanned Weight Gain of 20#: No Neurological Hx Seizures: No HX Syncope/Blackout Spells/Unconsciousness: No Hx Transient Ischemic Attacks (TIA): No Hx Multiple Sclerosis: No Hx Parkinson's Disease: No Hx Head/Neck Injury: No Hx Headaches: No Hx Back Injury/Pain: No Recent Onset of Speech Difficulty: No Restless Legs: No Does patient have nerve stimulator: No Blood Disorder Hx Leukemia: No Bleeding Tendencies: No Hx Deep Vein Thrombosis: No Hx High Cholesterol: No Blood Transmitted Disease: No Hx Hepatitis: No Hx Cirrhosis: No Hx Anemia: No Hx Blood Disorders: No Genitourinary Hx Renal Disease: No Musculoskeletal Hx Arthritis: No Hx Rheumatoid Arthritis: No Hx Gout: No Recent Onset of an Orthopedic Problem: No Endocrine Hx Diabetes: No Thyroid Disease: No Hx Steroid Therapy: No Psycho/Social Hx Substance Use: No Hx Alcohol Use: Yes (2 beers/year) Hx Anxiety: Yes (controlled on zoloft) Hx Depression: No Mental Illness: No Hx Dementia: No Miscellaneous Hx Cancer: No Recent Exposure to Contagious Disease: No Hx of C-Diff: No Any Loose Teeth: No (no dentures) Allergies Penicillins Allergy (Verified 07/31/24 08:25) Anaphylaxis atorvastatin (From Lipitor) Adverse Reaction (Verified 07/31/24 08:25) myalgia cefaclor (From Ceclor) Adverse Reaction (Verified 07/31/24 08:25) Unknown Opioids - Morphine Analogues Adverse Reaction (Verified 07/31/24 08:25) bradycardia tetracycline Adverse Reaction (Verified 07/31/24 08:25) Unknown Discharge Is Pt Admitted From a Fpc, or a Custodial: No After D/C, Where Do you Plan to Go: Return Home From the PAT History Number of Risk Factors: 2 Vital Signs Vital Signs Vital Signs: 07/31/24 08:27 07/31/24 08:27 Temperature 97.8 F Temperature Source Temporal Pulse Rate 65 Respiratory Rate 18 Respiratory Pattern Normal Blood Pressure 148/88 H Blood Pressure Mean 108 Blood Pressure Source Monitor Blood Pressure Position Sitting Blood Pressure Location Left Arm Pulse Ox 98 Oxygen Delivery Method Room Air Weight Weight: 267 lb 3.204 oz Body Mass Index (BMI) 37.3 Physical Exam Const alert and oriented x3 HEENT normocephalic Eyes PERRL Resp normal respiratory effort and normal air movement Cardio regular rate and regular rhythm GI soft to palpation, non-tender and non-distended Extremity normal to inspection Assessment & Plan Assessment/Plan (1) Personal history of colonic polyps: PLAN: I explained endoscopy in detail to the patient. I explained the risks including but not limited to stroke or heart attack with anesthesia, perforation of the GI tract, bleeding, infection. I explained that any of these could necessitate further emergency surgery. The patient understands and all questions were answered sufficiently. The patient wishes to proceed with procedure. Giovanny Olea MD Pager: [facility] [address] [place] [address], [address] [place] [address] Office: Surgery Risks - Colonoscopy Risks Include but are not Limited To: Risks include but are not limited to: Bleeding, perforation requiring further surgery, inability to complete colonoscopy requiring barium enema.
--- NOTE | 2024-07-31 09:12 | OP.CCLET_ITS ---
07/31/2024 Shan Shelton [address] [place] [address] Re : Colonoscopy procedure for Jerad Iqbal Dear Dr. Shelton This procedure was performed on Wednesday, July 31, 2024. My impressions and recommendations are as follows: Impressions : - The entire examined colon is normal on direct and retroflexion views. - No specimens collected. Recommendations : - Discharge patient to home. - Resume previous diet. - Continue present medications. - Repeat colonoscopy is not recommended due to current age (66 years or older) for screening purposes. My findings are described in the full procedure note, which is enclosed. If I can be of further assistance, please feel free to contact me at Doctor phone number(s): , Work: . Sincerely, Giovanny Olea MD 07/31/2024 9:11:44 AM This report has been signed electronically.
--- NOTE | 2024-07-31 09:12 | OP.COLON_ITS ---
Patient Name: Jerad Iqbal Procedure Date: 07/31/2024 8:32 AM Date of : 1955 Age: 68 Procedure: Colonoscopy Indications: High risk colon cancer surveillance: Personal history of colonic polyps Providers: Giovanny Olea MD Referring MD: Shan Shelton Medicines: Propofol per Anesthesia Patient Profile: This is a 68 year old male. Refer to note in patient chart for documentation of history and physical. Last Colonoscopy: 5 years ago. Complications: No immediate complications. Procedure: Pre-Anesthesia Assessment: - Prior to the procedure, a History and Physical was performed, and patient medications and allergies were reviewed. The patient's tolerance of previous anesthesia was also reviewed. The risks and benefits of the procedure and the sedation options and risks were discussed with the patient. All questions were answered, and informed consent was obtained. Prior Anticoagulants: The patient has taken no anticoagulant or antiplatelet agents. After reviewing the risks and benefits, the patient was deemed in satisfactory condition to undergo the procedure. After I obtained informed consent, the scope was passed under direct vision. Throughout the procedure, the patient's blood pressure, pulse, and oxygen saturations were monitored continuously. The pediatric colonoscope was introduced through the anus and advanced to the cecum, identified by appendiceal orifice and ileocecal valve. The colonoscopy was performed without difficulty. The patient tolerated the procedure well. The quality of the bowel preparation was good. The ileocecal valve, appendiceal orifice, and rectum were photographed. Scope In: 8:56:43 AM Scope Withdrawal Time 0 hours 6 minutes 17 seconds Scope Out: 9:07:15 AM Total Procedure Duration Time 0 hours 10 minutes 32 seconds Findings: The entire examined colon appeared normal on direct and retroflexion views. Impression: - The entire examined colon is normal on direct and retroflexion views. - No specimens collected. Recommendation: - Discharge patient to home. - Resume previous diet. - Continue present medications. - Repeat colonoscopy is not recommended due to current age (66 years or older) for screening purposes. Procedure Code(s): --- Professional --- 60391, Colonoscopy, flexible; diagnostic, including collection of specimen(s) by brushing or washing, when performed (separate procedure) Diagnosis Code(s): --- Professional --- Z86.010, Personal history of colonic polyps CPT copyright 2021 [employer]. All rights reserved. The codes documented in this report are preliminary and upon locomotive engineer review may be revised to meet current compliance requirements. Giovanny Olea MD 07/31/2024 9:11:44 AM This report has been signed electronically. Number of Addenda: 0 Note Initiated On: 07/31/2024 8:32 AM
--- NOTE | 2024-07-31 10:28 | PCM.POSTANE2 ---
Anesthesia Postop Eval I Sum Anesthesia Postop Eval I Summary Anesthesia Postop Eval I Summary: Anesthesia Postop Eval I: Assessment Summary Airway patent Spontaneous unlabored respirations Mental status nausea Vomiting Anesthesia Postop Eval I: Fluid Summary Crystalloid volume administer (ml) Colloids volume administered ( ml) Blood Product volume administered (ml) Total IV fluid infused Anesthesia Postop Eval I: Summary Notes Anesthesia Complication Anesthesia Complication Comment: Post-operative progress note
--- NOTE | 2024-07-31 10:30 | PCM.POST.ANE ---
Anesthesia: Postop Eval I Current Vital Signs Temperature: 98.4 F Pulse Rate: 72 Blood Pressure: 112/79 Respiratory Rate: 16 Pulse Ox: 94 Oxygen Delivery Method: Room Air Assessment Airway patent: Yes Spontaneous unlabored respirations: Yes nausea: No Vomiting: No Anesthesia Complication: No Fluid Hydration Crystalloid volume administer (ml): 20 Total IV fluid infused: 20 Progress Note Anesthesia document: Postop Eval 1 completed: Yes
--- NOTE | 2024-07-31 10:35 | PCM.POSTANE2 ---
Anesthesia Postop Eval I Sum Postop Eval Completion status Anesthesia document: Postop Eval 1 completed: Yes Anesthesia Postop Eval I Summary Anesthesia Postop Eval I Summary: Anesthesia Postop Eval I: Assessment Summary Airway patent Yes 07/31/24 10:35 Spontaneous unlabored Yes 07/31/24 10:35 respirations Mental status nausea No 07/31/24 10:35 Vomiting No 07/31/24 10:35 Anesthesia Postop Eval I: Fluid Summary Crystalloid volume administer 20 07/31/24 10:35 (ml) Colloids volume administered ( ml) Blood Product volume administered (ml) Total IV fluid infused 20 07/31/24 10:35 Anesthesia Postop Eval I: Summary Notes Anesthesia Complication No 07/31/24 10:35 Anesthesia Complication Comment: Post-operative progress note Anesthesia: Postop Eval II Evaluation Mental status: Awake and Calm Pain Level: 0 nausea: No Vomiting: No Complications Anesthesia Complication: No
== END 2024-07-31 09:48 | disposition home or self-care (01) ==
LOC: EN 08:00 → AC 08:02
PROVIDERS: PCP Family Medicine; Referring Provider Family Medicine; Visit Provider Surgery
PROC: 0DJD8ZZ Inspection of Lower Intestinal Tract, Via Natural or Artificial Opening Endoscopic (ICD-10-PCS; CPT 45378; principal; 2024-07-31 08:55)
DX: Z12.11 Encounter for screening for malignant neoplasm of colon (principal); I25.10 Atherosclerotic heart disease of native coronary artery without angina pectoris; Z86.0100 Personal history of colon polyps, unspecified; E78.00 Pure hypercholesterolemia, unspecified; Z87.891 Personal history of nicotine dependence; I10 Essential (primary) hypertension; Z79.82 Long term (current) use of aspirin; K21.9 Gastro-esophageal reflux disease without esophagitis; F32.A Depression, unspecified; Z79.899 Other long term (current) drug therapy; Z95.5 Presence of coronary angioplasty implant and graft
CPT/HCPCS: G0105; A4216

== ENCOUNTER → 2024-08-27 | Outpatient (CLI) | payer MEDICARE, BC, SELFPAY ==
[2024-08-27 12:02] LABS: Absolute Lymphocyte Count 1.52 X10^3/uL (0.83-4.51); Basophil# 0.05 X10^3/uL; Basophil% 0.6 % (0-1); Eosinophil# 0.46 X10^3/uL; Eosinophils% 5.1 % (0-5); Hemoglobin 15.3 g/dL (13.0-16.5); Lymphocyte # 1.52 X10^3/ul (0.83-4.51); Lymphocyte % 16.9 % (19-41); Mean Corp Hgb Conc 33.3 g/dL (32-36); Mean Corpuscular Hgb 30.6 pg (27.0-32.0); Monocyte# 0.98 X10^3/uL; Monocyte% 10.9 % (0-10); NRBC Flagged by Analyzer 0 % (0-5); Neutrophil # 5.96 X10^3/uL (2.7-7.7); Neutrophil % 66.1 % (47-70); Platelet Count 191 K/mm3 (150-450); RBC Distribution Width CV 12.6 % (11.6-14.6); RBC Distribution Width SD 42.7 fl (35.1-43.9)
[2024-08-27 12:24] LABS: AST(SGOT) 20 U/L (15-37); Alanine Aminotransfer ALT/SGPT 39 U/L (16-61); Albumin, Serum 3.7 g/dL (3.2-5.0); Alkaline Phosphatase 65 U/L (45-117); Anion Gap 4 (5-15); BUN 22 mg/dL (7-18); BUN/Creat Ratio 26.5 RATIO (10-20); Calcium,Total 9.6 mg/dL (8.5-10.1); Chloride 107 mmol/L (98-107); Cholesterol 137 mg/dL (200); Creatinine, Serum 0.83 mg/dL (0.70-1.30); EST Glomerular Filtration Rate 97 mL/min (>60); Est Glom Filt Rate - Afr Amer 118 mL/min (>60); Globulin 3.6 g/dL (2.2-4.2); Glucose 122 mg/dL (74-106); High Density Lipoprotein 41 mg/dL; Potassium 4.3 mmol/L (3.5-5.1); Protein, Total 7.3 g/dL (6.4-8.2); Sodium Level 137 mmol/L (136-145); Triglycerides 189 mg/dL; Very Low Density Lipoprotein 38 mg/dL (5-40)
== END | disposition home or self-care (01) ==
LOC: BFHLAB 09:12
PROVIDERS: PCP Family Medicine; Visit Provider Family Medicine
DX: I25.10 Atherosclerotic heart disease of native coronary artery without angina pectoris (principal); I10 Essential (primary) hypertension; E78.5 Hyperlipidemia, unspecified; Z12.5 Encounter for screening for malignant neoplasm of prostate; R73.01 Impaired fasting glucose
CPT/HCPCS: 36415; 80053; 80061; 83036; 85025

== ENCOUNTER → 2025-04-05 | Outpatient (CLI) | payer MEDICARE, BC, SELFPAY | END | disposition home or self-care (01) | PROVIDERS: PCP Family Medicine; Referring Provider Family Medicine; Visit Provider Family Medicine | DX: R73.01 Impaired fasting glucose (principal) | CPT/HCPCS: 36415; 83036 ==

== ENCOUNTER 2025-05-14 15:18 | Emergency (ER) | payer MEDICARE, BC, SELFPAY ==
[2025-05-14 15:19] VITALS: BP 134/85; PULSE 80; RESP 18; TEMP 37.1; O2SAT 94; BMI 37.2
--- NOTE | 2025-05-14 15:32 | EKG12_ITS ---
Test Reason : indigestion Blood Pressure : */* mmHG Vent. Rate : 78 BPM Atrial Rate : 78 BPM P-R Int : 166 ms QRS Dur : 78 ms QT Int : 382 ms P-R-T Axes : 37 6 31 degrees QTcB Int : 435 ms Normal sinus rhythm Normal ECG Confirmed by Aaron Bledsoe ([id number]), assignment editor JUAN DEGROOT ([id number]) on 05/16/2025 5:54:23 AM Referred By: Confirmed By: Aaron Bledose
--- NOTE | 2025-05-14 15:54 | EX.ED.DYSGE1 ---
HPI History of Present Illness Chief Complaint: Abd Pain Detail of Chief Complaint: Discomfort upper abdomen that migrated to the chest with urge to defecate Informant: patient and spouse/S.O. Onset/Context/Timing Onset: Today (Approximately 1330) Context: Sudden Onset Timing: Intermittent Quality: Discomfort similar to [facility] 18 years ago Location: Upper abdomen and chest bilaterally Current Severity: Gone Maximum Severity: Mild Worsened by: Nothing Relieved by: 7 minutes after taking a nitroglycerin tablet Associated Symptoms Associated Symptoms: Urge to defecate, nausea and vomiting and diaphoresis Narrative Narrative: Patient is 69-year-old male. He has history of coronary disease. He has 2 stents placed June 2007. He does have history of hypertension, dyslipidemia and prediabetes. He had lunch at 11:30 AM. He had a omelette on bread. made this for him. He states he was under a tree on his cell phone when he developed discomfort in his upper abdomen that migrated towards the chest and had urge to defecate. He went to the restroom. He states he had a loose bowel movement. The discomfort did not get any better. He asked his to get blood pressure cuff and measure his blood pressure. It was not elevated. He then became diaphoretic and went into the house because he had episode of emesis. He became quite diaphoretic. He states this reminded him of the symptoms he had when he was diagnosed with [facility] 18 years ago. He asked his to get him a nitro. 7 minutes after taking the nitro his discomfort was alleviated. Prior similar symptoms: Yes ([facility] 18 years ago) Recent Illness/Hospitalization: No PFSH PFSH Medical History Wears hearing aid Loss of hearing Wears glasses Depression History of kidney stones High cholesterol Diverticulosis History of diverticulitis Former smoker Hypertension Cardiology follow-up encounter History of stress test Personal history of colonic polyps Obesity Erectile dysfunction GERD (gastroesophageal reflux disease) Atherosclerosis of coronary artery of [place] heart without angina pectoris Essential (primary) hypertension Dyslipidemia Home Medications ?Medication ?Instructions ?Recorded ?Last Taken ?Type aspirin 81 mg tablet,delayed 81 mg PO DAILY 01/11/19 Unknown History release (Adult Low Dose Aspirin) multivitamin 1 tab PO DAILY 01/11/19 Unknown History pantoprazole 40 mg tablet,delayed 40 mg PO QAM 30 days #30 tabs 01/12/19 07/31/24 05:30 History release sertraline 50 mg tablet 50 mg PO DAILY 30 days #30 tabs 06/01/19 07/31/24 05:30 History omega-3 fatty acids 1,000 mg 2,000 mg PO QHS 01/20/21 Unknown History capsule (Fish Oil Concentrate) nitroglycerin 0.4 mg sublingual 0.4 mg sublingual Q5-15M PRN 02/06/24 Unknown Rx tablet Cardiac/Chest Pain 30 days #25 tabs coenzyme Q10 50 mg capsule (Co 50 mg PO QDAY 06/07/24 Unknown History Q-10) trazodone 100 mg tablet 100 mg PO QHS 03/21/25 Unknown History lisinopril 5 mg tablet 5 mg PO DAILY #90 tabs 04/16/25 Unknown Rx ezetimibe 10 mg-simvastatin 20 mg See Rx Instructions .Route 04/24/25 Unknown Rx tablet .COMPLEX #90 tabs metoprolol tartrate 25 mg tablet 25 mg PO BID #180 tabs 05/09/25 Unknown Rx Allergy/AdvReac Type Severity Reaction Status Date / Time Penicillins Allergy Anaphylaxis Verified 05/14/25 15:19 atorvastatin (From Lipitor) AdvReac myalgia Verified 05/14/25 15:19 cefaclor (From Ceclor) AdvReac Unknown Verified 05/14/25 15:19 Opioids - Morphine Analogues AdvReac bradycardia Verified 05/14/25 15:19 tetracycline AdvReac Unknown Verified 05/14/25 15:19 Family History Brother Heart disease Myocardial infarction, Onset Age: 46 from [facility] CAD (coronary artery disease) STENTS Colon polyps Brother Heart disease Myocardial infarction, Onset Age: 50 CAD (coronary artery disease) CABG Colon polyps Father Cancer Mother CAD (coronary artery disease) CABGx x 3 Colon polyps Other Atherosclerosis of coronary artery of [place] heart without angina pectoris Dyslipidemia Essential (primary) hypertension History of coronary artery stent placement Surgical History History of cardiac catheterization Hx of colonoscopy History of left heart catheterization (10/03/07) History of herniorrhaphy History of coronary artery stent placement (07/07/07) Social History (Updated 05/14/25 @ 16:00 by Nicole Phillips) household members: spouse current occupational status: retired Smoking Status: Former smoker how long ago did patient quit smokin years ago alcohol intake: current alcohol intake frequency: 0-2 drinks per day Alcohol type: beer substance use type: does not use caffeine: Yes Type: coffee Number of servings: 3 ROS ROS ED Constitutional Constitutional ED: Denies chills, fever(s), subjective or sweats Eyes Eyes: Denies blurry vision or change in vision ENT ENT ED: Denies ear pain or rhinorrhea Cardiovascular Cardiovascular: Reports chest pain; Denies orthopnea, palpitations, paroxysmal nocturnal dyspnea or racing heartbeat Respiratory/Chest Respiratory/Chest: Denies cough, dyspnea, dyspnea on exertion, orthopnea or paroxysmal nocturnal dyspnea Gastrointestinal Gastrointestinal: Reports abdominal pain, diarrhea, nausea and vomiting; Denies constipation or melena Genitourinary Genitourinary ED: Denies dysuria, hematuria or urinary frequency Musculoskeletal Musculoskeletal: Denies back pain or neck pain Integumentary Denies abscess or rash Neurologic Neurologic: Denies headache(s), paresthesias or weakness Psychiatric Psychiatric: Denies anxiety or depression Hematologic/Lymphatic Hematologic/Lymphatic: Reports systems reviewed and no addt'l complaints, except as documented EXAM Physical Exam Const Vital Signs: 05/14/25 15:19 05/14/25 15:58 05/14/25 16:25 Temperature 98.7 F Temperature Source Oral Pulse Rate 80 91 Respiratory Rate 18 23 H Blood Pressure 134/85 H 139/86 H Blood Pressure Mean 101 103 Pulse Ox 94 Oxygen Delivery Method Room Air Room Air 05/14/25 17:00 05/14/25 17:45 05/14/25 19:00 Temperature Temperature Source Pulse Rate 85 82 88 Respiratory Rate 15 26 H 16 Blood Pressure 127/89 H 112/84 H Blood Pressure Mean 101 93 Pulse Ox Oxygen Delivery Method Positive well nourished and well developed Constitutional Narrative: BMI is 37.2. Blood pressure slightly elevated 135/85. General Appearance ED: well developed and NAD; Negative for pallor HEENT HEENT Narrative: Head is atraumatic and normocephalic. Ears normal. Nares patent. Posterior pharynx is normal Eyes PERRL and EOMs intact bilaterally General Eye ED: Negative for pale conjunctiva or scleral icterus Neck no lymphadenopathy, supple and no JVD Chest Wall inspection of chest normal and palpation of chest normal Resp normal respiratory effort and clear to auscultation bilaterally Cardio regular rate, regular rhythm, S1 normal heart sound, S2 normal heart sound and no murmurs GI normal to inspection, nondistended, normoactive bowel sounds, non-tender, non-distended and no masses; Negative for hepatosplenomegaly Extremity normal to inspection General Extremety ED: Negative for edema or tenderness General Extremity: Negative for edema Neuro oriented x3 and CN's II-XII intact bilaterally Sensorium / Orientation: alert Psych mental status grossly normal Skin no rashes or lesions noted, no wounds and skin turgor normal General Skin Exam: elasticity normal; Negative for jaundice or pallor MDM MDM MDM Narrative Medical decision making narrative: Differential diagnosis is biliary disease, indigestion, peptic ulcer disease, cardiac ischemia. Concern dismemberment cardiac ischemia since he got relief for 7 minutes after taking nitroglycerin. Patient was recently seen by Dr. Hahn, office visit March 21 of this year. He had a drug-eluting stent placed to the first obtuse marginal branch. 2007 he had a repeat cardiac catheterization which demonstrated patent stents. His last stress test was November 2018 and there was no evidence of ischemia. Most recent echo was 2016 with an EF of 50%. His informing that he has prediabetes. There was visit with Dr. Olea for ED EGD/colonoscopy. Patient has a personal history of colonic polyps. History & Record Review Additional record(s) reviewed:: Prior outpatient record, Prior ED visit and Prior labs Lab Data Labs: Laboratory Results - last 24 hr 05/14/25 05/14/25 15:40 17:39 WBC 11.7 H RBC 5.13 Hgb 16.2 Hct 46.2 MCV 90.1 MCH 31.6 MCHC 35.1 RDW Std Deviation 41.8 RDW Coeff of Angelic 12.6 Plt Count 202 MPV 9.4 Immature Gran % (Auto) 0.300 Neut % (Auto) 76.2 H Lymph % (Auto) 11.6 L [place] % (Auto) 10.0 Eos % (Auto) 1.6 Baso % (Auto) 0.3 Absolute Neuts (auto) 8.9 H Absolute Lymphs (auto) 1.36 Nucleated RBC % 0 Sodium 138 Potassium 4.8 Chloride 105 Carbon Dioxide 19.7 L Anion Gap 14 BUN 19 Creatinine 1.03 Estim Creat Clear Calc 88.37 Est GFR (MDRD) Non-Af 78 BUN/Creatinine Ratio 18.8 Glucose 123 H Calcium 9.5 Total Bilirubin 0.49 AST 34 ALT 30 Alkaline Phosphatase 66 Troponin T High Sens 8 Troponin T Hi Sens 2 Hr 7 Total Protein 7.6 Albumin 4.3 Globulin 3.3 Albumin/Globulin Ratio 1.3 Lipase 27 Radiography Diagnostic Testing: Clinical Impression(s) from Imaging Studies Chest X-Ray 05/14/25 15:55 IMPRESSION: No Acute Findings. Reading Location: [facility] Treatment and Re-Evaluation :: Patient's troponin and delta are negative. Because this resembled/was similar to the pain he experienced with his [facility] Dr. Lane who is on-call and his cardiology to discuss case and specifically whether patient can be seen as an outpatient with outpatient workup versus inpatient. After informing him of his history, physical findings, laboratory test and the fact that this was similar to the presentation he had when he had his [facility] and the fact that he got relief from nitroglycerin. Additional studies were reviewed as well. Plan is discharged to home. He is to call the office tomorrow for follow-up later this week. Discharge Plan Triage Chief Complaint: Abd Pain ED Provider: Prakash Archibald Dx/Rx/DC Orders Clinical Impression: Chest discomfort, Dyslipidemia, Essential (primary) hypertension, History of coronary artery disease Instructions: ED Chest Pain, Uncertain Cause Prescriptions: No Action multivitamin tablet 1 tab PO DAILY aspirin [Adult Low Dose Aspirin] 81 mg tablet,delayed release (DR/EC) 81 mg PO DAILY pantoprazole 40 mg tablet,delayed release (DR/EC) 40 mg PO QAM 30 Days Qty: 30 sertraline 50 mg tablet 50 mg PO DAILY 30 Days Qty: 30 omega-3 fatty acids [Fish Oil Concentrate] 1,000 mg capsule 2,000 mg PO QHS nitroglycerin 0.4 mg tablet, sublingual 0.4 mg SUBLINGUAL Q5-15M PRN (Reason: Cardiac/Chest Pain) 30 Days Qty: 25 5RF trazodone 100 mg tablet 100 mg PO QHS coenzyme Q10 [Co Q-10] 50 mg capsule 50 mg PO QDAY lisinopril 5 mg tablet 5 mg PO DAILY Qty: 90 3RF ezetimibe-simvastatin 10-20 mg tablet See Rx Instructions .ROUTE .COMPLEX Qty: 90 3RF Dose Instruction: TAKE 1 TABLET BY MOUTH EVERYDAY AT BEDTIME Rx Instructions: TAKE 1 TABLET BY MOUTH EVERYDAY AT BEDTIME metoprolol tartrate 25 mg tablet 25 mg PO BID Qty: 180 3RF Primary Care Provider: Shan Shelton Referrals: Jose Lane MD [Med Staff - Active Staff, Cardiology] - As soon as possible Shan Shelton DO [Primary Care Provider, Family Practice] Print Language: French Disposition Disposition: Home, Self Care
--- NOTE | 2025-05-14 15:55 | RAD_ITS ---
PROCEDURE: CHEST 1 VIEW (PORTABLE) 05/14/2025 REASON FOR EXAM: CHEST PAIN TECHNIQUE: Frontal view of the chest. COMPARISON: 08/11/2021. FINDINGS: The heart is normal in size. The lungs are clear. No acute osseous abnormalities. RAD/Chest 1 View (Portable) IMPRESSION: No Acute Findings. Reading Location: [id number]
[2025-05-14 16:03] LABS: Hematocrit 46.2 % (40-54); Hemoglobin 16.2 g/dL (13.0-16.5); Immature Granulocytes Count 0.040 X10^3/uL (0.0-0.0); Mean Corp Hgb Conc 35.1 g/dL (32-36); Mean Corpuscular Volume 90.1 fL (80-94); Mean Platelet Vol. 9.4 fl (6.2-12.0); NRBC Flagged by Analyzer 0 % (0-5); Platelet Count 202 K/mm3 (150-450); RBC Distribution Width CV 12.6 % (11.6-14.6); RBC Distribution Width SD 41.8 fl (35.1-43.9); Red Blood Count 5.13 M/mm3 (4.6-6.2); White Blood Count 11.7 K/mm3 (4.4-11.0)
[2025-05-14 16:25] VITALS: BP 139/86; PULSE 91; RESP 23
[2025-05-14 16:25] LABS: Lipase 27 U/L (13-75)
[2025-05-14 16:30] LABS: AST(SGOT) 34 U/L (<=37); Alanine Aminotransfer ALT/SGPT 30 U/L (<=46); Albumin, Serum 4.3 g/dL (3.4-4.8); Alkaline Phosphatase 66 U/L (40-129); Anion Gap 14 (5-15); BUN 19 mg/dL (4-19); BUN/Creat Ratio 18.8 RATIO (10-20); Calcium,Total 9.5 mg/dL (7.6-11.0); Carbon Dioxide 19.7 mmol/L (21.0-32.0); Chloride 105 mmol/L (98-108); Estimated Creatinine Clearance 88.37 ml/min (50-250); Globulin 3.3 g/dL (2.2-4.2); Glucose 123 mg/dL (70-99); Potassium 4.8 mmol/L (3.3-5.1); Troponin T High Sensitivity 8 ng/L (<=22)
[2025-05-14 17:00] VITALS: BP 127/89; PULSE 85; RESP 15
[2025-05-14 17:45] VITALS: BP 112/84; PULSE 82; RESP 26
[2025-05-14 18:24] LABS: Troponin T High Sens 2 HR 7 ng/L (<=22)
[2025-05-14 19:00] VITALS: PULSE 88; RESP 16
[2025-05-14 19:51] LABS: Troponin T High Sens 4 HR < 6 ng/L (<=22)
== END 2025-05-14 19:55 | disposition home or self-care (01) ==
PROVIDERS: Emergency Provider Emergency Medicine; PCP Family Medicine; Visit Provider Emergency Medicine
DX: R07.89 Other chest pain (principal); I25.2 Old myocardial infarction; I10 Essential (primary) hypertension; Z87.891 Personal history of nicotine dependence; I25.10 Atherosclerotic heart disease of native coronary artery without angina pectoris; R10.9 Unspecified abdominal pain; E78.00 Pure hypercholesterolemia, unspecified; Z79.82 Long term (current) use of aspirin; K21.9 Gastro-esophageal reflux disease without esophagitis; Z79.899 Other long term (current) drug therapy; Z95.5 Presence of coronary angioplasty implant and graft
CPT/HCPCS: 71045; 80048; 80053; 83690; 84484; 85025; 93005; 99283; A4216

== ENCOUNTER → 2025-05-15 | Outpatient (CLI) | payer MEDICARE, BC, SELFPAY ==
[2025-05-15 15:02] LABS: Prothrombin Time (Protime)PT. 13.9 SECONDS (11.7-14.9)
--- OUTSIDE RECORDS SUMMARY | 2025-05-15 17:50 | XMS RPT_ITS | CCD ---
Author Organization [facility] Care Team Providers Care Gate Operator Name Role Phone Dr. Shan Shelton Primary Care Provider [phone] Dr. Shan Shelton Referring Provider Ángel MEDICAL APPLIANCE MAKER, MEDICAL APPLIANCE MAKERAneta Chandler Attending Provider Dr. Shan Shelton Primary Care Provider [phone] Dr. Shan Shleton Referring Provider Dr. Jose Lane Attending Provider [phone] Shan Shelton Primary Care Provider [phone] Attending Provider Dr. Jose Lane Referring Provider Dr. Jose Lane Other Provider Jhon MEDICAL APPLIANCE MAKER, MEDICAL APPLIANCE MAKERAneta Carter Attending Provider Dr. Shan Shelton DO Primary Care Provider Dr. Shan Shelton DO Referring Provider [phone] MD Attending Provider Dr. Shan Shelton DO Attending Provider [phone] Giovanny Olea Consulting Unavailable Giovanny Olea Attending Unavailable Shan Shelton Primary Care Unavailable Shan Shelton Referring Unavailable Shan Shelton Primary Care Unavailable Shan Shelton Attending Unavailable Shan Shelton Referring Unavailable Shan Shelton Primary Care Unavailable Jose Lane Attending Unavailable Shan Shelton Referring Unavailable Joelle Mckeon Attending Unavailable Shan Shelton Primary Care Unavailable Giovanny Olea Attending Unavailable Shan Shelton Referring Unavailable Shan Shelton Primary Care Unavailable Shan Shelton Primary Care Unavailable Shan Shelton Attending Unavailable Allergies Allergy Classification Reported Allergen(s) Allergy Type Date of Onset Reaction(s) Facility (8 sources) atorvastatin Drug Allergy 2 myalgia [facility] (8 sources) Cefaclor Drug Allergy 2 Unknown [facility] (9 sources) Penicillins; Translations: [Penicillins] Allergy to substance 2 Anaphylaxis [facility] (8 sources) Tetracycline Drug Allergy 2 Unknown [facility] (9 sources) Opioids - Morphine Analogues; Translations: [Opioids - Morphine Analogues] Propensity to adverse reactions 2 bradycardia [facility] (1 source) atorvastatin Drug Allergy 5 [facility] Repository (1 source) Cefaclor Drug Allergy 5 [facility] Repository (1 source) Tetracycline Drug Allergy 5 [facility] Repository Medications Current Medications Medication Drug Class(es) Dates Sig (Normalized) Sig (Original) aspirin 81 mg delayed release oral tablet (8 sources) Platelet Aggregation Inhibitor, Nonsteroidal Anti-inflammatory Drug Start: 01-11-2019 Aspirin (Adult Low Dose Aspirin) 81 mg tablet,delayed release (DR/EC) Active 81 mg PO DAILY January 11, 2019 12:00am Multivitamin preparation (6 sources) Start: 01-11-2019 take 1 tablet by mouth once daily Multivitamin Active 1 TABLET PO DAILY January 10, 2019 11:00pm Start: 01-11-2019 take 1 tablet by terrance th once daily Multivitamin Active 1 TABLET PO DAILY January 11, 2019 12:00am Multivitamin tablet (2 sources) Start: 01-11-2019 Multivitamin t ablet Active 1 {tbl} PO DAILY January 11, 2019 12:00am Honaker-3 Fatty Acids (Fish Oi l Concentrate) 1,000 mg capsule (20 sources) Start: 01-20-2021 Honaker-3 Fatty Acids (Fish Oil Concentrate) 1,000 mg capsule Active 2000 mg PO AT BEDTIME January 20, 2021 10:07am Start: 01-20-2021 Honaker-3 Fatty Acids (Fish Oil Concentrate) 1,000 mg capsule Active 2000 MG PO AT BEDTIME Amelia 1st, 2021 9:07am Start: 01-20-2021 Honaker-3 Fatty Acids (Fish Oil Concentrate) 1,000 mg capsule Active 2000 MG PO AT BEDTIME January 20, 2021 10:07am Start: 06-01-2019 End: 01-20-2021 Honaker-3 Fatty Acids (Fish Oi l Concentrate) 1,000 mg capsule Discontinued 1200 mg PO THREE TIMES A DAY June 01, 2019 1:50pm January 20, 2021 10:07am Start: 06-01-2019 End: 01-20-2021 Honaker-3 Fatty Acids (Fish Oi l Concentrate) 1,000 mg capsule Discontinued 1200 MG PO THREE TIMES A DAY June 01, 2019 12:50pm January 20, 2021 9:07am Start: 06-01-2019 End: 01-20-2021 Honaker-3 Fatty Acids (Fish Oi l Concentrate) 1,000 mg capsule Discontinued 1200 MG PO THREE TIMES A DAY June 01, 2019 1:50pm January 20, 2021 10:07am Start: 01-11-2019 End: 06-01-2019 take 1 capsule by mouth once daily Honaker-3 Fatty Acids (Fish Oil Concentrate) 1,000 mg capsule Discontinued 1000 mg PO DAILY January 11, 2019 12:00am June 01, 2019 1:51pm Start: 01-11-2019 End: 06-01-2019 take 1 capsule by mouth once daily Honaker-3 Fatty Acids (Fish Oil Concentrate) 1,000 mg capsule Discontinued 1000 MG PO DAILY January 10, 2019 11:00pm June 01, 2019 12:51pm Start: 01-11-2019 End: 06-01-2019 take 1 capsule by mouth once daily Honaker-3 Fatty Acids (Fish Oil Concentrate) 1,000 mg capsule Discontinued 1000 MG PO DAILY January 11, 2019 12:00am June 01, 2019 1:51pm pantoprazole 40 mg delayed release oral tablet (16 sources) Proton Pump Inhibitor Start: 01-11-2019 End: 01-12-2019 take 1 tablet by mouth once daily in the morning Pantoprazole 40 mg tablet,delayed release (DR/EC) Active 40 mg PO EVERY MORNING 30 30 0 January 12, 2019 8:38am Start: 01-11-2019 End: 01-12-2019 Pantoprazole 40 mg tablet,de layed release (DR/EC) Discontinued PO 30 0 January 11, 2019 12:00am January 12, 2019 8:38am traZODone hydrochloride 100 mg oral tablet (10 sources) Serotonin Reuptake Inhibitor Start: 03-21-2025 take 1 tablet by mouth at bedtime Trazodone 100 mg tablet Active 100 mg PO AT BEDTIME March 21, 2025 12:00am Start: 01-11-2019 End: 02-06-2024 take 1 tablet by mouth at bedtime Trazodone 100 mg tablet Discontinued 100 mg PO AT BEDTIME 30 0 January 11, 2019 12:00am February 06, 2024 8:56am ubidecarenone 50 mg oral cap divine (10 sources) Start: 06-07-2024 Coenzyme Q10 ( Co Q-10) 50 mg capsule Active 50 mg PO daily June 07, 2024 12:00am Start: 01-11-2019 End: 01-20-2021 Coenzyme Q10 (Co Q-10) 100 m g capsule Discontinued 100 mg PO DAILY January 11, 2019 12:00am January 20, 2021 10:07am Completed/Discontinued Medications Medication Drug Class(es) Dates Sig (Normalized) Sig (Original) busPIRone hydrochloride 7.5 mg oral tablet (8 sources) Start: 01-20-2022 End: 06-07-2024 take 1 tablet by mouth twice daily Buspirone 7.5 mg tablet Discontinued 7.5 mg PO TWICE A DAY January 20, 2022 12:00am June 07, 2024 9:06am ezetimibe 10 mg / simvastatin 20 mg oral tablet (20 sources) HMG-CoA Reductase Inhibitor, Dietary Cholesterol Absorption Inhibitor Start: 01-20-2023 End: 02-06-2024 take 1 tablet by mouth once daily at bedtime Ezetimibe-Simvasta tin 10-20 mg tablet Discontinued 0 .ROUTE .COMPLEX 90 3 January 06, 2024 1:17pm February 06, 2024 9:20am TAKE 1 TABLET BY MOUTH EVERYDAY AT BEDTIME Start: 01-20-2023 take 1 tablet by terrance th once daily at bedtime Ezetimibe-Simvastatin Active 0 .ROUTE .COMPLEX 90 January 20, 2023 7:45am TAKE 1 TABLET BY MOUTH EVERYDAY AT BEDTIME Start: 06-14-2019 End: 01-20-2023 Ezetimibe-Simvastatin 10-20 mg tablet Discontinued 1 {tbl} PO AT BEDTIME 90 3 January 22, 2022 3:19pm January 20, 2023 8:46am Start: 06-14-2019 End: 01-20-2023 take 1 tablet by mouth at bedtime Ezetimibe-Simvastatin Discontinued 1 TABLET PO AT BEDTIME 90 January 22, 2022 2:19pm January 20, 2023 7:46am Start: 01-12-2019 End: 06-14-2019 Ezetimibe-Simvastatin 10-20 mg tablet Discontinued 1 {tbl} PO DAILY 90 90 3 January 12, 2019 8:49am January 06, 2020 12:00am June 14, 2019 9:20am Start: 01-12-2019 End: 06-14-2019 take 1 tablet by mouth once daily Ezetimibe-Simvastatin Discontinued 1 TABLET PO DAILY 90 90 January 12, 2019 7:49am June 14, 2019 8:20am Start: 01-11-2019 End: 01-12-2019 Ezetimibe-Simvastatin 10-20 mg tablet Discontinued PO 30 0 January 11, 2019 12:00am January 12, 2019 8:38am Start: 01-11-2019 End: 01-12-2019 Ezetimibe-Simvastatin Discon tinued PO 30 January 10, 2019 11:00pm January 12, 2019 7:38am lisinopril 5 mg oral tablet (20 sources) Angiotensin Converting Enzyme Inhibitor Start: 01-18-2020 End: 02-06-2024 take 1 tablet by mouth once daily Lisinopril 5 mg tablet Discontinued 5 mg PO DAILY 90 3 January 06, 2024 2:35pm February 06, 2024 9:20am Start: 01-11-2019 End: 01-07-2020 take 1 tablet by mouth once daily in the evening Lisinopril 5 mg tablet Discontinued 5 mg PO EVERY EVENING 30 30 0 January 12, 2019 8:37am January 12, 2019 8:51am Start: 01-11-2019 End: 01-12-2019 Lisinopril 5 mg tablet Disco ntinued PO 30 0 January 11, 2019 12:00am January 12, 2019 8:38am metoprolol tartrate 25 mg oral tablet (20 sources) beta-Adrenergic Ryland Start: 01-24-2020 End: 02-06-2024 take 1 tablet by mouth twice daily Metoprolol Tartrate 25 mg tablet Discontinued 0 .ROUTE .COMPLEX 180 3 January 06, 2024 1:17pm February 06, 2024 9:20am TAKE 1 TABLET BY MOUTH TWICE A DAY Start: 01-11-2019 End: 01-07-2020 take 1 tablet by mouth twice daily Metoprolol Tartrate 25 mg tablet Discontinued 25 mg PO TWICE A DAY 180 90 0 January 12, 2019 8:36am January 12, 2019 8:51am Start: 01-11-2019 End: 01-12-2019 Metoprolol Tartrate 25 mg ta blet Discontinued PO 90 0 January 11, 2019 12:00am January 12, 2019 8:38am nitroglycerin 0.4 mg sublingual tablet (20 sources) Nitrate Vasodilator Start: 01-11-2019 End: 02-06-2024 Nitroglycerin 0.4 mg tablet, sublingual Discontinued 0.4 mg SL every 5 to 15 minutes as needed for Cardiac/Chest Pain January 07, 2023 11:09am February 06, 2024 9:20am Start: 01-11-2019 End: 01-07-2023 Nitroglycerin Discontinued 0 .4 MG SL every 5 to 15 minutes December 12, 2020 2:51pm January 07, 2023 10:09am polyethylene glycol 3350 [id number] mg / potassium chloride 2970 mg / sodium bicarbonate 6740 mg / sodium chloride 5860 mg / sodium sulfate 83521 mg powder for oral solution (8 sources) Osmotic Laxative Start: 06-04-2019 End: 01-20-2021 take 4000 mL by mouth once Peg 3350-Electrolytes 236-22.74-6.74 -5.86 gram recon soln Discontinued 4000 mL PO ONCE 4000 0 June 04, 2019 12:00am January 20, 2021 10:06am until fecal effluent is clear; do not exceed a total volume of 4000 mL Start: 06-04-2019 End: 01-20-2021 take 4000 mL by mouth once Peg 3350-Electrolytes Disco ntinued 4000 ML PO ONCE 4000 June 03, 2019 11:00pm January 20, 2021 9:06am until fecal effluent is clear; do not exceed a total volume of 4000 mL sertraline 50 mg oral tablet (20 sources) Serotonin Reuptake Inhibitor Start: 01-11-2019 End: 06-01-2019 take 1 tablet by mouth once daily Sertraline 50 mg tablet Discontinued 50 mg PO DAILY 30 30 0 January 12, 2019 8:37am June 01, 2019 1:51pm Start: 01-11-2019 End: 01-12-2019 Sertraline 50 mg tablet Disc ontinued PO 30 0 January 11, 2019 12:00am January 12, 2019 8:38am sildenafil 100 mg oral tablet (2 sources) Phosphodiesterase 5 Inhibitor Start: 02-06-2024 End: 03-21-2025 take 1 tablet by mouth once as needed Sildenafil 100 mg tablet Discontinued 100 mg PO ONCE as needed for sexual activity February 06, 2024 12:00am March 21, 2025 9:40am tadalafil 10 mg oral tablet (8 sources) Phosphodiesterase 5 Inhibitor Start: 04-01-2021 End: 02-06-2024 take 1 tablet by mouth every twenty-four hours Tadalafil (Cialis) 10 mg tablet Discontinued 10 mg PO DAILY as needed for sexual activity 30 April 01, 2021 12:00am February 06, 2024 8:57am administer approximately 30min before sexual activity; do not use more than 1 dose per 24hrs, do not use with NTG Problems Active Problems Problem Classification Problem Date Documented Da te Episodic/Chronic Coronary atherosclerosis and other heart disease (9 sources) Coronary atherosclerosis; Translations: [Atherosclerotic heart disease of [place] coronary artery without angina pectoris] Onset: 09-20-2024 01-17-2021 Chronic Diabetes mellitus without complication (1 source) Impaired fasting glucose; Translations: [Impaired fasting glucose] Onset: 04-10-2025 Episodic Disorders of lipid metabolism (11 sources) Dyslipidemia; Translations: [Hyperlipidemia, unspecified] Chronic Essential hypertension (11 sources) Essential hypertension; Translations: [Essential (primary) hypertension] Chronic Other and unspecified benign neoplasm (2 sources) History of polyp of colon; Translations: [History of colonic polyps] 07-31-2024 Episodic Other lower respiratory disease (5 sources) Dyspnea on exertion; Translations: [Other forms of dyspnea] 04-29-2023 Episodic Past or Other Problems Problem Classification Problem Date Documented Da te Episodic/Chronic Coronary atherosclerosis and other heart disease (2 sources) Presence of coronary angioplasty implant and graft; Translations: [Percutaneous transluminal coronary angioplasty status] Onset: 07-07-2007 Episodic Other screening for suspected conditions (not mental disorders or infectious disease) (4 sources) Patient encounter status; Translations: [Encounter for screening for malignant neoplasm of colon] Onset: 06-07-2024 06-07-2024 Episodic Results Test Name Value Interpretation Reference Range Facility Hemoglobin A1con 04-05-2025 HbA1c (Bld) [Mass fraction] 6.0 % High <=5.6 [facility] Comment on above: Result Comment: Norm al < 5.7 % Prediabetic 5.7 - 6.4 % Diabetic >or= 6.5 % Please note range changes. Performed By: #### L [id number] #### [facility] [address], [address] Hemoglobin A1c percentageOrd ered By: Shan Shelton on 04-05-2025 HbA1c (Bld) [Mass fraction] 6.0 % High <5.7 [facility] Comment on above: Normal < 5.7 % Predi abetic 5.7 - 6.4 % Diabetic >or= 6.5 % Please note range changes. Cardiology Visit Reporton Cardiology Visit Report [facility] [address] [place], [place] [address] OFFICE VISIT Date of Service: 03/21/25 MR#: [id number] Acct: [id number] Name: SALTY IQBAL Rep #: [id number] 1 : 1955 Provider: Dr. Jose Lane MD Age/Sex: 69/M Location: [facility] Status: Signed HPI HPI History of Present Illness Details: Pleasant 69-year-old man who presents for an office visit. You do remember that his previous cardiac history consisted of angina status post cardiac catheterization 2006 and a drug-eluting stent placed to the first obtuse marginal branch. In 2007, he underwent a repeat cardiac catheterization which demonstrated patent stents. He did undergo a stress test in November 2018 and no evidence of ischemia was noted. A previous echocardiogram performed in 2016 demonstrated an ejection fraction of 50%. The stress test was performed and he attained a metabolic workload of 9 metabolic equivalents. He denies chest, arm, jaw, or neck discomfort. He denies palpitations. He states mild, intermittent bilateral lower extremity edema. He denies claudication. He denies shortness of breath with activity, shortness of breath at rest, orthopnea, or PND. He denies chronic cough. He denies significant, sudden weight gain. He denies lightheadedness, dizziness, near-syncope, or syncope. He denies blood in urine, blood in stool, or epistaxis. He denies fever with chills. He denies myalgia. He states fatigue and such that he tires more easily. His exercise level has remained stable. Intake Vital Signs 02/06/24 08:40 07/31/24 08:27 03/21/25 09:33 Height 5 ft 11 in 5 ft 11 in 5 ft 11 in Weight: 269 lb BMI 37.5 BP 122/78 H Blood Pressure Location Lt brachial Position Sitting Respiration 18 Pulse 54 L Pulse Source Monitor Intake Visit Reasons: 1 Y FU Sales Assistant Required: No Accompanied by: Self Is patient in pain?: No Allergies Penicillins Allergy (Verified 03/21/25 09:36) Anaphylaxis atorvastatin (From Lipitor) Adverse Reaction (Verified 03/21/25 09:36) myalgia cefaclor (From Ceclor) Adverse Reaction (Verified 03/21/25 09:36) Unknown Opioids - Morphine Analogues Adverse Reaction (Verified 03/21/25 09:36) bradycardia tetracycline Adverse Reaction (Verified 03/21/25 09:36) Unknown Medications ???Medication ???Instructions ???Recorded ???Confirmed ???Type aspirin 81 mg tablet,delayed 81 mg PO DAILY 01/11/19 03/21/25 H istory release (Adult Low Dose Aspirin) multivitamin 1 tab PO DAILY 01/11/19 03/21/25 H istory pantoprazole 40 mg tablet,delayed 40 mg PO QAM 30 days #30 tabs 03/21/25 History release sertraline 50 mg tablet 50 mg PO DAILY 30 days #30 tabs 03/21/25 History omega-3 fatty acids 1,000 mg 2,000 mg PO QHS 01/20/21 03/21/25 History capsule (Fish Oil Concentrate) ezetimibe 10 mg-simvastatin 20 mg See Rx Instructions .Route 03/21/25 Rx tablet .COMPLEX #90 tabs lisinopril 5 mg tablet 5 mg PO DAILY #90 tabs 02/06/24 Rx metoprolol tartrate 25 mg tablet 25 mg PO BID #180 tabs 02/06/24 Rx nitroglycerin 0.4 mg sublingual 0.4 mg sublingual Q5-15M PRN 02/0503/21/25 Rx tablet Cardiac/Chest Pain 30 days #25 tab s coenzyme Q10 50 mg capsule (Co 50 mg PO QDAY 06/07/24 03/21/25 Hi story Q-10) trazodone 100 mg tablet 100 mg PO QHS 03/21/25 03/21/25 Hi story Ejection fraction %: 50 Have you fallen in the past year?: No PFSH Medical History Wears hearing aid Loss of hearing Wears glasses Depression History of kidney stones High cholesterol Diverticulosis History of diverticulitis Former smoker Hypertension Cardiology follow-up encounter History of stress test Personal history of colonic polyps Obesity Erectile dysfunction GERD (gastroesophageal reflux disease) Atherosclerosis of coronary artery of [place] heart without angina pectoris Essential (primary) hypertension Dyslipidemia Surgical History History of cardiac catheterization Hx of colonoscopy History of left heart catheterization (10/03/07) History of herniorrhaphy History of coronary artery stent placement (07/07/07) Family History Brother Heart disease Myocardial infarction, Onset Age: 46 from [place] CAD (coronary artery disease) STENTS Colon polyps Brother Heart disease Myocardial infarction, Onset Age: 50 CAD (coronary artery disease) CABG Colon polyps Father Cancer Mother CAD (coronary artery disease) CABGx x 3 Colon polyps Other Atherosclerosis of coronary artery of [place] heart without angina pectoris Dyslipidemia Essential (prim (more content not included)... Normal [facility] Hemoglobin A1con 08-28-2024 HbA1c (Bld) [Mass fraction] 6.0 % High 3.8-5.6 [facility] Comment on above: Order Comment: ADD O N PER DR. SHELTON Result Comment: Norm al < 5.7 % Prediabetic 5.7 - 6.4 % Diabetic >or= 6.5 % Please note range changes. Performed By: #### L 100.0100, L500.4050, L500.4100, [id number] #### [facility] [address] [place], [address] CBC W/Diff, Automatedon 01-0 6-2024 Absolute Lymph 1.52 X10 3/uL Normal 0.83-4.51 [facility] Comment on above: Performed By: #### L 100.0100, L500.4050, L500.4100, [id number] #### [facility] [address] [place], [address] Absolute Neut 6.0 X10 3/uL Normal 2.0-7.7 [facility] Comment on above: Performed By: #### L 100.0100, L500.4050, L500.4100, [id number] #### [facility] [address] [place], [address] Basophils/100 WBC (Bld) 0.6 % Normal 0-1 [facility] Comment on above: Performed By: #### L 100.0100, L500.4050, L500.4100, [id number] #### [facility] [address] [place], [address] Eosinophils/100 WBC (Bld) 5.1 % High 0-5 [facility] Comment on above: Performed By: #### L 100.0100, L500.4050, L500.4100, [id number] #### [facility] [address] [place], [address] Erythrocyte distribution width (RBC) [Ratio] 12.6 % Normal 11.6-14.6 [facility] Comment on above: Performed By: #### L 100.0100, L500.4050, L500.4100, [id number] #### [facility] [address] [place], [address] Hematocrit (Bld) [Volume fraction] 46.0 % Normal 40-54 [facility] Comment on above: Performed By: #### L 100.0100, L500.4050, L500.4100, [id number] #### [facility] [address] [place], [address] Hemoglobin (Bld) [Mass/Vol] 15.3 g/dL Normal 13.0-16.5 [facility] Comment on above: Performed By: #### L 100.0100, L500.4050, L500.4100, [id number] #### [facility] [address] [place], [address] IG% 0.400 Normal 0.0-0.9 [facility] Comment on above: Result Comment: IG% - Immature Granulocytes (promyelocytes, myelocytes and metamyelocytes) > 1% indicates that a LEFT SHIFT is Present. Performed By: #### L 100.0100, L500.4050, L500.4100, [id number] #### [facility] [address] [place], [address] Lymphocytes/100 WBC (Bld) 16.9 % Low 19-41 [facility] Comment on above: Performed By: #### L 100.0100, L500.4050, L500.4100, [id number] #### [facility] [address] [place], [address] MCH (RBC) [Entitic mass] 30.6 pg Normal 27.0-32.0 [facility] Comment on above: Performed By: #### L 100.0100, L500.4050, L500.4100, [id number] #### [facility] [address] [place], [address] MCHC (RBC) [Mass/Vol] 33.3 g/dL Normal 32-36 [facility] Comment on above: Performed By: #### L 100.0100, L500.4050, L500.4100, [id number] #### [facility] [address] [place], [address] MCV (RBC) [Entitic vol] 92.0 fL Normal 80-94 [facility] Comment on above: Performed By: #### L 100.0100, L500.4050, L500.4100, [id number] #### [facility] [address] [place], [address] Monocytes/100 WBC (Bld) 10.9 % High 0-10 [facility] Comment on above: Performed By: #### L 100.0100, [id number], L500.4100, [id number] #### [facility] [address] [place], [address] Neutrophils/100 WBC (Bld) 66.1 % Normal 47-70 [facility] Comment on above: Performed By: #### L 100.0100, L500.4050, L500.4100, [id number] #### [facility] [address] [place], [address] Nucleated RBC (Bld) [#/Vol] 0 10*3/uL Normal 0-5 [facility] Comment on above: Performed By: #### L 100.0100, L500.4050, L500.4100, [id number] #### [facility] [address] [place], [address] Platelet mean volume (Bld) [Entitic vol] 10.0 fL Normal 6.2-12.0 [facility] Comment on above: Performed By: #### L 100.0100, L500.4050, L500.4100, [id number] #### [facility] [address] [place], [address] Platelets (Bld) [#/Vol] 191 10*3/uL Normal 150-450 [facility] Comment on above: Performed By: #### L 100.0100, L500.4050, L500.4100, [id number] #### [facility] [address] [place], [address] RBC (Bld) [#/Vol] 5.00 10*6/uL Normal 4.6-6.2 [facility] Comment on above: Performed By: #### L 100.0100, L500.4050, L500.4100, [id number] #### [facility] [address] [place], [address] RDW SD 42.7 fl Normal 35.1-43.9 [facility] Comment on above: Performed By: #### L 100.0100, L500.4050, L500.4100, [id number] #### [facility] [address] [place], [address] WBC (Bld) [#/Vol] 9.0 10*3/uL Normal 4.4-11.0 [facility] Comment on above: Performed By: #### L 100.0100, L500.4050, L500.4100, [id number] #### [facility] [address] [place], [address] Comprehensive Metabolic Prof [facility] 08-27-2024 Albumin [Mass/Vol] 3.7 g/dL Normal 3.2-5.0 [facility] Comment on above: Performed By: #### L 100.0100, L500.4050, L500.4100, [id number] #### [facility] [address] [place], [address] Albumin/Globulin [Mass ratio] 1.0 {ratio} Normal 0.9-2.4 [facility] Comment on above: Performed By: #### L 100.0100, L500.4050, L500.4100, [id number] #### [facility] [address] [place], [address] ALK P 65 U/L Normal 45-117 [facility] Comment on above: Performed By: #### L 100.0100, L500.4050, L500.4100, [id number] #### [facility] [address] [place], [address] ALT [Catalytic activity/Vol] 39 U/L Normal 16-61 [facility] Comment on above: Performed By: #### L 100.0100, L500.4050, L500.4100, [id number] #### [facility] [address] [place], [address] AST [Catalytic activity/Vol] 20 U/L Normal 15-37 [facility] Comment on above: Performed By: #### L 100.0100, L500.4050, L500.4100, L501.9985 #### [facility] [address] [place], [address] Bilirubin [Mass/Vol] 0.30 mg/dL Normal 0.20-1.00 [facility] Comment on above: Result Comment: For patients on eltrombopag therapy, use of Dimension [place] TBIL is not recommended. Performed By: #### L 100.0100, L500.4050, L500.4100, L501.9985 #### [facility] [address] [place], [address] BUN/CRE 26.5 RATIO High 10-20 [facility] Comment on above: Performed By: #### L 100.0100, L500.4050, L500.4100, L501.9985 #### [facility] [address] [place], [address] CA,Total 9.6 mg/dL Normal 8.5-10.1 [facility] Comment on above: Performed By: #### L 100.0100, L500.4050, L500.4100, L501.9985 #### [facility] [address] [place], [address] Chloride [Moles/Vol] 107 mmol/L Normal 98-107 [facility] Comment on above: Performed By: #### L 100.0100, L500.4050, L500.4100, L501.9985 #### [facility] [address] [place], [address] CO2 [Moles/Vol] 26.0 mmol/L Normal 21.0-32.0 [facility] Comment on above: Performed By: #### L 100.0100, L500.4050, L500.4100, L501.9985 #### [facility] [address] [place], [address] Creatinine [Mass/Vol] 0.83 mg/dL Normal 0.70-1.30 [facility] Comment on above: Result Comment: The validity of the calculated GFR GFRAA in patients over 70 years has not been determined. Clinical correlation is essential. Performed By: #### L 100.0100, L500.4050, L500.4100, L501.9985 #### [facility] [address] [place], [address] EST GFR - AA 118 mL/min Normal >60 [facility] Comment on above: Result Comment: Afri can Maltese GFR Calc Performed By: #### L 100.0100, L500.4050, L500.4100, L501.9985 #### [facility] [address] [place], [address] GAP 4 Low 5-15 [facility] Comment on above: Performed By: #### L 100.0100, L500.4050, L500.4100, L501.9985 #### [facility] [address] [place], [address] GFR/1.73 sq M.predicted among non-blacks MDRD (S/P/Bld) [Vol rate/Area] 97 mL/min/{1.73_m2} Normal >60 [facility] Comment on above: Result Comment: Non- GFR Calc Performed By: #### L 100.0100, L500.4050, L500.4100, L501.9985 #### [facility] [address] [place], [address] Globulin (S) [Mass/Vol] 3.6 g/dL Normal 2.2-4.2 [facility] Comment on above: Performed By: #### L 100.0100, L500.4050, L500.4100, L501.9985 #### [facility] [address] [place], [address] Glucose [Mass/Vol] 122 mg/dL High 74-106 [facility] Comment on above: Result Comment: Fast ing Glucose result from 100 to 125 mg/dL suggests IMPAIRED HOMEOSTASIS per A.D.A. criteria. Performed By: #### L 100.0100, L500.4050, L500.4100, L501.9985 #### [facility] [address] [place], [address] Potassium [Moles/Vol] 4.3 mmol/L Normal 3.5-5.1 [facility] Comment on above: Performed By: #### L 100.0100, L500.4050, L500.4100, L501.9985 #### [facility] [address] [place], [address] Sodium [Moles/Vol] 137 mmol/L Normal 136-145 [facility] Comment on above: Performed By: #### L 100.0100, L500.4050, L500.4100, L501.9985 #### [facility] [address] [place], [address] T PROT 7.3 g/dL Normal 6.4-8.2 [facility] Comment on above: Performed By: #### L 100.0100, L500.4050, L500.4100, L501.9985 #### [facility] [address] [place], [address] Urea nitrogen [Mass/Vol] 22 mg/dL High 7-18 [facility] Comment on above: Performed By: #### L 100.0100, L500.4050, L500.4100, L501.9985 #### [facility] [address] [place], [address] Lipid Profileon 08-27-2024 Cholesterol [Mass/Vol] 137 mg/dL Normal 200 [facility] Comment on above: Result Comment: <200 mg/dL Desirable 200-240 mg/dL Borderline >240 mg/dL High Risk Performed By: #### L 100.0100, L500.4050, L500.4100, L501.9985 #### [facility] [address] [place], [address] Cholesterol in HDL [Mass/Vol] 41 mg/dL Normal [facility] Comment on above: Result Comment: The drugs N-Acetylcysteine and Metamizole may falsely depress this assay. Reference Range HDL <40 mg/dL Low HDL Cholesterol HDL >or= 60 mg/dL High HDL Cholesterol Performed By: #### L 100.0100, L500.4050, L500.4100, L501.9985 #### [facility] [address] [place], [address] Cholesterol in LDL [Mass/Vol] 58 mg/dL Normal 0-130 [facility] Comment on above: Performed By: #### L 100.0100, L500.4050, L500.4100, L501.9985 #### [facility] [address] [place], [address] Cholesterol in VLDL [Mass/Vol] 38 mg/dL Normal 5-40 [facility] Comment on above: Performed By: #### L 100.0100, L500.4050, L500.4100, L501.9985 #### [facility] [address] [place], [address] Triglyceride [Mass/Vol] 189 mg/dL Normal [facility] Comment on above: Result Comment: The drugs N-Acetylcysteine and Metamizole may falsely depress this assay. Serum Triglycerides Reference Interval Normal <150 mg/dL Borderline high 150 - 199 mg/dL High 200 - 499 mg/dL Very High > or = 500 mg/dL Performed By: #### L 100.0100, L500.4050, L500.4100, L501.9985 #### [facility] [address] [place], [address] Colonoscopy Reporton 024 Colonoscopy Report [facility] Medical Records Department [address] [place] [address] Colonoscopy Report MR#: [id number] Acct: [id number] Name: SALTY IQBAL Rep #: [id number] : 1955 68 From: Giovanny Olea MD PCP: Dr. Shan Shelton, DO Status:[facility] Patient Name: Salty Iqbal Procedure Date: 07/31/2024 8:32 AM Date of : 1955 Age: 68 Procedure: Colonoscopy Indications: High risk colon cancer surveillance: Personal history of colonic polyps Providers: Giovanny Olea MD Referring MD: Shan Shelton Medicines: Propofol per Anesthesia Patient Profile: This is a 68 year old male. Refer to note in patient chart for documentation of history and physical. Last Colonoscopy: 5 years ago. Complications: No immediate complications. Procedure: Pre-Anesthesia Assessment: - Prior to the procedure, a History and Physical was performed, and patient medications and allergies were reviewed. The patient's tolerance of previous anesthesia was also reviewed. The risks and benefits of the procedure and the sedation options and risks were discussed with the patient. All questions were answered, and informed consent was obtained. Prior Anticoagulants: The patient has taken no anticoagulant or antiplatelet agents. After reviewing the risks and benefits, the patient was deemed in satisfactory condition to undergo the procedure. After I obtained informed consent, the scope was passed under direct vision. Throughout the procedure, the patient's blood pressure, pulse, and oxygen saturations were monitored continuously. The pediatric colonoscope was introduced through the anus and advanced to the cecum, identified by appendiceal orifice and ileocecal valve. The colonoscopy was performed without difficulty. The patient tolerated the procedure well. The quality of the bowel preparation was good. The ileocecal valve, appendiceal orifice, and rectum were photographed. Scope In: 8:56:43 AM Scope Withdrawal Time 0 hours 6 minutes 17 seconds Scope Out: 9:07:15 AM Total Procedure Duration Time 0 hours 10 minutes 32 seconds Findings: The entire examined colon appeared normal on direct and retroflexion views. Impression: - The entire examined colon is normal on direct and retroflexion views. - No specimens collected. Recommendation: - Discharge patient to home. - Resume previous diet. - Continue present medications. - Repeat colonoscopy is not recommended due to current age (66 years or older) for screening purposes. Procedure Code(s): --- Professional --- 39889, Colonoscopy, flexible; diagnostic, including collection of specimen(s) by brushing or washing, when performed (separate procedure) Diagnosis Code(s): --- Professional --- Z86.010, Personal history of colonic polyps CPT copyright 2021 [employer]. All rights reserved. The codes documented in this report are preliminary and upon panelbeater review may be revised to meet current compliance requirements. Giovanny Olea MD 07/31/2024 9:11:44 AM This report has been signed electronically. Number of Addenda: 0 Note Initiated On: 07/31/2024 8:32 AM 07/31/24 0911 Date Giovanny Beavers Signature: Date (if indicated) CC: Dr. Giovanny Olea MD; Dr. Shan Shelton, Date Dictated: 07/31/24831 Date Transcribed: Dressmaker Or Tailor: AC Signed [facility] MR/POSTOP.ANE 07-31-2024 MR/POSTOP.[facility] Medical Records Department [address] [facility] [place] [address] Anesthesia Postop Eval I 07/31/241029 MR#: [id number] Acct: [id number] Name: SALTY IQBAL Rep #: [id number] : 1955 68 From: Shane Bello MD PCP: Dr. Shan Shelton, DO Status:DEP [facility] Y Race: C Location: EN Anesthesia: Postop Eval I Current Vital Signs Temperature: 98.4 F Pulse Rate: 72 Blood Pressure: 112/79 Respiratory Rate: 16 Pulse Ox: 94 Oxygen Delivery Method: Room Air Assessment Airway patent: Yes Spontaneous unlabored respirations: Yes nausea: No Vomiting: No Anesthesia Complication: No Fluid Hydration Crystalloid volume administer (ml): 20 Total IV fluid infused: 20 Progress Note Anesthesia document: Postop Eval 1 completed: Yes 07/31/241034 Date Shane Beavers Signature: Date CC: Signed [facility] MR/[id number] 07-31-2024 [facility] Medical Records Department [address] [place] [address] Anesthesia Postop Eval II 07/31/24 1035 MR#: [id number] Acct: [id number] Name: SALTY IQBAL Rep #: [id number] : 1955 68 From: Shane Bello MD PCP: Dr. Shan Shelton, DO Status:[facility] Y Race: C Location: EN Anesthesia Postop Eval I Sum Postop Eval Completion status Anesthesia document: Postop Eval 1 completed: Yes Anesthesia Postop Eval I Summary Anesthesia Postop Eval I Summary: Anesthesia Postop Eval I: Assessment Summary Airway patent Yes 07/31/24 10:35 Spontaneous unlabored Yes 07/31/24 10:35 respirations Mental status nausea No 07/31/24 10:35 Vomiting No 07/31/24 10:35 Anesthesia Postop Eval I: Fluid Summary Crystalloid volume administer 20 07/31/24 10:35 (ml) Colloids volume administered ( ml) Blood Product volume administered (ml) Total IV fluid infused 20 07/31/24 10:35 Anesthesia Postop Eval I: Summary Notes Anesthesia Complication No 07/31/24 10:35 Anesthesia Complication Comment: Post-operative progress note Anesthesia: Postop Eval II Evaluation Mental status: Awake and Calm Pain Level: 0 nausea: No Vomiting: No Complications Anesthesia Complication: No 07/31/24 1035 Date Shane Bello MD Cosigner Signature: Date CC: Signed Normal [facility] Absolute lymphocyte countOrd ered By: Kishor Neal on 09-16-2023 Lymphocytes Auto (Unsp spec) [#/Vol] 1.67 10*3/uL 0.83-4.51 [facility] Automated lymphocyte count a s percentage of total leukocytesOrdered By: Kishor Neal on 09-16-2023 Lymphocytes/100 WBC Auto (Unsp spec) 20.9 % 19-41 [facility] Basophil percentageOrdered B y: Kishor Neal on 09-16-2023 Basophils/100 WBC (Bld) 0.6 % 0-1 [facility] Eosinophils/100 WBC (Bld) 5.9 % 0-5 [facility] Hemoglobin (Bld) [Mass/Vol] 15.1 g/dL 13.0-16.5 [facility] Monocytes/100 WBC (Bld) 10.0 % 0-10 [facility] Neutrophils (Bld) [#/Vol] 5.0 10*3/uL 2.0-7.7 [facility] Neutrophils/100 WBC (Bld) 62.2 % 47-70 [facility] WBC (Bld) [#/Vol] 8.0 10*3/uL 4.4-11.0 [facility] Bilirubin [Mass/Vol] 0.40 mg/dL 0.20-1.00 [facility] Comment on above: For patients on eltr ombopag therapy, use of Dimension [place] TBIL is not recommended. Chloride [Moles/Vol] 107 mmol/L 98-107 [facility] Cholesterol [Mass/Vol] 138 mg/dL <200 [facility] Comment on above: <200 mg/dL Desirable 200-240 mg/dL Borderline >240 mg/dL High Risk Glucose [Mass/Vol] 114 mg/dL 74-106 [facility] Comment on above: Fasting Glucose resu lt from 100 to 125 mg/dL suggests IMPAIRED HOMEOSTASIS per A.D.A. criteria. Potassium [Moles/Vol] 4.2 mmol/L 3.5-5.1 [facility] Protein [Mass/Vol] 7.3 g/dL 6.4-8.2 [facility] Sodium [Moles/Vol] 139 mmol/L 136-145 [facility] Triglyceride [Mass/Vol] 169 mg/dL <199 [facility] Comment on above: The drugs N-Acetylcy steine and Metamizole may falsely depress this assay.Serum Triglycerides Reference Interval Normal <150 mg/dL Borderline high 150 - 199 mg/dL High 200 - 499 mg/dL Very High > or = 500 mg/dL Determination of erythrocyte mean corpuscular volume (MCV)Ordered By: Kishor Neal on 09-16-2023 MCV (RBC) [Entitic vol] 90.2 fL 80-94 [facility] Direct bilirubinOrdered By: Kishor Neal on 09-16-2023 Bilirubin.direct [Mass/Vol] 0.16 mg/dL 0.00-0.30 [facility] Erythrocyte distribution wid th ratioOrdered By: Kishor Neal on 09-16-2023 Erythrocyte distribution width (RBC) [Ratio] 12.0 % 11.6-14.6 [facility] Erythrocyte distribution wid th standard deviationOrdered By: Kishor Neal on 09-16-2023 Erythrocyte distribution width (RBC) [Entitic vol] 39.5 fL 35.1-43.9 [facility] Hematocrit Auto (Bld) [Volum e fraction]Ordered By: Kishor Neal on 09-16-2023 Hematocrit (Bld) [Volume fraction] 45.1 % 40-54 [facility] High density lipoprotein (HD L) measurementOrdered By: Kishor Neal on 09-16-2023 Cholesterol in HDL (Body fld) [Mass/Vol] 39 mg/dL >40 [facility] Comment on above: The drugs N-Acetylcy steine and Metamizole may falsely depress this assay. Reference Range HDL <40 mg/dL Low HDL Cholesterol HDL >or= 60 mg/dL High HDL Cholesterol Immature granulocytes/100 WB C Auto (Bld)Ordered By: Kishor Neal on 09-16-2023 Immature granulocytes/100 WBC (Bld) 0.400 % 0.0-0.9 [facility] Comment on above: IG% - Immature Granu locytes (promyelocytes, myelocytes and metamyelocytes) > 1% indicates that a LEFT SHIFT is Present. Laboratory - Chemistry and C hemistry - challengeOrdered By: Kishor Neal on 09-16-2023 ALP [Catalytic activity/Vol] 66 U/L 45-117 [facility] ALT [Catalytic activity/Vol] 32 U/L 16-61 [facility] CO2 [Moles/Vol] 27.0 mmol/L 21.0-32.0 [facility] Globulin (S) [Mass/Vol] 3.5 g/dL 2.2-4.2 [facility] Urea nitrogen/Creatinine [Mass ratio] 23.6 mg/mg 10-20 [facility] Laboratory - Hematology and Cell countsOrdered By: Kishor Neal on 09-16-2023 MCH (RBC) [Entitic mass] 30.2 pg 27.0-32.0 [facility] MCHC (RBC) [Mass/Vol] 33.5 g/dL 32-36 [facility] Nucleated RBC/100 WBC (Bld) [Ratio] 0 % 0-5 [facility] Platelets (Bld) [#/Vol] 178 10*3/uL 150-450 [facility] Low density lipoprotein (LDL ) cholesterol measurementOrdered By: Kishor Neal on 09-16-2023 Cholesterol in LDL (Body fld) [Moles/Vol] 65 mg/dL 0-130 [facility] No Panel InformationOrdered By: Kishor Neal on 09-16-2023 Estimated GFR (MDRD) Amer 98 mL/min >60 [facility] Comment on above: GFR Calc Estimated GFR (MDRD) Non-Af Amer 81 mL/min >60 [facility] Comment on above: Non- GFR Calc Platelet mean volume Socrates-Ec ker (Bld) [Entitic vol]Ordered By: Kishor Neal on 09-16-2023 Platelet mean volume (Bld) [Entitic vol] 9.6 fL 6.2-12.0 [facility] RBC Auto (Bld) [#/Vol]Ordere d By: Kishor Neal on 09-16-2023 RBC (Bld) [#/Vol] 5.00 10*6/uL 4.6-6.2 [facility] Screening prostate specific antigen (PSA) measurementOrdered By: Kishor Neal on 09-16-2023 Prostate specific Ag IA [Mass/Vol] 1.56 ng/mL 0.00-4.00 [facility] Comment on above: This test was perfor med using the TPSA assay method for the[facility] chemistry system. Values obtained with differentassay methods cannot be used interchangably.When changing PSA assays in the course of monitoring apatient, additional sequential testing should be carriedout to confirm baseline values. Serum or plasma calcium katia urement (mass/volume)Ordered By: Kishor Neal on 09-16-2023 Calcium [Mass/Vol] 9.1 mg/dL 8.5-10.1 [facility] Serum or plasma creatinine m easurement (mass/volume)Ordered By: Kishor Neal on 09-16-2023 Creatinine [Mass/Vol] 0.97 mg/dL 0.70-1.30 [facility] Comment on above: The validity of the calculated GFR & GFRAA in patients over 70 years has not been determined. Clinical correlation is essential. Serum or plasma urea nitroge n measurement (mass/volume)Ordered By: Kishor Neal on 09-16-2023 Urea nitrogen [Mass/Vol] 23 mg/dL 7-18 [facility] Thin prep Papanicolaou smear with manual screeningOrdered By: Kishor Neal on 09-16-2023 Thin prep Papanicolaou smear with manual screening 3.8 g/dL 3.2-5.0 [facility] Thin prep Papanicolaou smear with manual screening 15 U/L 15-37 [facility] Thin prep Papanicolaou smear with manual screening 5 5-15 [facility] Very low density lipoprotein (VLDL) cholesterol measurementOrdered By: Kishor Neal on 09-16-2023 Cholesterol in VLDL Calc [Moles/Vol] 34 mg/dL 5-40 [facility] Basophil percentageOrdered B y: Kishor Neal on 02-17-2023 Bilirubin [Mass/Vol] 0.50 mg/dL 0.20-1.00 [facility] Comment on above: For patients on eltr ombopag therapy, use of Dimension [place] TBIL is not recommended. Cholesterol [Mass/Vol] 132 mg/dL <200 [facility] Comment on above: <200 mg/dL Desirable 200-240 mg/dL Borderline >240 mg/dL High Risk Protein [Mass/Vol] 7.6 g/dL 6.4-8.2 [facility] Triglyceride [Mass/Vol] 188 mg/dL <199 [facility] Comment on above: The drugs N-Acetylcy steine and Metamizole may falsely depress this assay.Serum Triglycerides Reference Interval Normal <150 mg/dL Borderline high 150 - 199 mg/dL High 200 - 499 mg/dL Very High > or = 500 mg/dL Direct bilirubinOrdered By: Kishor Neal on 02-17-2023 Bilirubin.direct [Mass/Vol] 0.14 mg/dL 0.00-0.30 [facility] Laboratory - Chemistry and C hemistry - challengeOrdered By: Kishor Neal on 02-17-2023 ALP [Catalytic activity/Vol] 63 U/L 45-117 [facility] ALT [Catalytic activity/Vol] 32 U/L 16-61 [facility] Globulin (S) [Mass/Vol] 3.8 g/dL 2.2-4.2 [facility] Serum or plasma albumin katia urement (mass/volume)Ordered By: Kishor Neal on 02-17-2023 Albumin [Mass/Vol] 3.8 g/dL 3.2-5.0 [facility] Serum or plasma cholesterol in HDL measurement (mass/volume)Ordered By: Kishor Neal on 02-17-2023 Cholesterol in HDL [Mass/Vol] 40 mg/dL >40 [facility] Comment on above: The drugs N-Acetylcy steine and Metamizole may falsely depress this assay. Reference Range HDL <40 mg/dL Low HDL Cholesterol HDL >or= 60 mg/dL High HDL Cholesterol Serum or plasma cholesterol in VLDL measurement (mass/volume)Ordered By: Kishor Neal on 02-17-2023 Cholesterol in VLDL [Mass/Vol] 38 mg/dL 5-40 [facility] Serum or plasma low density lipoprotein (LDL) cholesterol measurement (mass/volume)Ordered By: Kishor Neal on 02-17-2023 Cholesterol in LDL [Mass/Vol] 54 mg/dL 0-130 [facility] Thin prep Papanicolaou smear with manual screeningOrdered By: Kishor Neal on 02-17-2023 Thin prep Papanicolaou smear with manual screening 20 U/L 15-37 [facility] Absolute lymphocyte counton 08-02-2022 Lymphocytes Auto (Unsp spec) [#/Vol] 1.44 10*3/uL 0.83-4.51 [facility] Work Phone: Basophil percentageon 2021 Basophils/100 WBC (Bld) 0.7 % 0-1 [facility] Work Phone: Chloride [Moles/Vol] 107 mmol/L 98-107 [facility] Work Phone: Eosinophils/100 WBC (Bld) 5.0 % 0-5 [facility] Work Phone: Glucose [Mass/Vol] 118 mg/dL 74-106 [facility] Work Phone: Comment on above: Fasting Glucose resu lt from 100 to 125 mg/dL suggests IMPAIRED HOMEOSTASIS per A.D.A. criteria. Neutrophils (Bld) [#/Vol] 7.1 10*3/uL 2.0-7.7 [facility] Work Phone: Neutrophils/100 WBC (Bld) 70.6 % 47-70 [facility] Work Phone: Potassium [Moles/Vol] 4.2 mmol/L 3.5-5.1 [facility] Work Phone: Sodium [Moles/Vol] 139 mmol/L 136-145 [facility] Work Phone: WBC (Bld) [#/Vol] 10.0 10*3/uL 4.4-11.0 [facility] Work Phone: Bilirubin Test strip Ql (U)o n 08-02-2022 Bilirubin Ql (U) Negative Negative [facility] Work Phone: Blood erythrocytes count (nu mber/volume)on 08-02-2022 RBC (Bld) [#/Vol] 4.90 10*6/uL 4.6-6.2 [facility] Work Phone: Blood hemoglobin measurement (mass/volume)on 08-02-2022 Hemoglobin (Bld) [Mass/Vol] 14.9 g/dL 13.0-16.5 [facility] Work Phone: Blood lymphocytes/100 leukoc yteson 08-02-2022 Lymphocytes/100 WBC (Bld) 14.4 % 19-41 [facility] Work Phone: Blood monocytes/100 leukocyt eson 08-02-2022 Monocytes/100 WBC (Bld) 8.8 % 0-10 [facility] Work Phone: Blood platelet mean volumeon 08-02-2022 Platelet mean volume (Bld) [Entitic vol] 9.1 fL 6.2-12.0 [facility] Work Phone: Determination of erythrocyte mean corpuscular volume (MCV)on 08-02-2022 MCV (RBC) [Entitic vol] 93.3 fL 80-94 [facility] Work Phone: Hematocrit Auto (Bld) [Volum e fraction]on 08-02-2022 Hematocrit (Bld) [Volume fraction] 45.7 % 40-54 [facility] Work Phone: Ketones Test strip Ql (U)on 08-02-2022 Ketones Ql (U) 5 mg/dl Negative [facility] Work Phone: Laboratory - Chemistry and C hemistry - challengeon 08-02-2022 CO2 [Moles/Vol] 27.0 mmol/L 21.0-32.0 [facility] Work Phone: Urea nitrogen/Creatinine [Mass ratio] 21.7 mg/mg 10-20 [facility] Work Phone: Laboratory - Hematology and Cell countson 08-02-2022 Erythrocyte distribution width (RBC) [Entitic vol] 41.1 fL 35.1-43.9 [facility] Work Phone: Erythrocyte distribution width (RBC) [Ratio] 11.9 % 11.6-14.6 [facility] Work Phone: Immature granulocytes/100 WBC (Bld) 0.500 % 0.0-0.9 [facility] Work Phone: Comment on above: IG% - Immature Granu locytes (promyelocytes, myelocytes and metamyelocytes) > 1% indicates that a LEFT SHIFT is Present. MCH (RBC) [Entitic mass] 30.4 pg 27.0-32.0 [facility] Work Phone: Nucleated RBC/100 WBC (Bld) [Ratio] 0 % 0-5 [facility] Work Phone: MCHC Auto (RBC) [Mass/Vol]on 08-02-2022 MCHC (RBC) [Mass/Vol] 32.6 g/dL 32-36 [facility] Work Phone: Nitrite Test strip Ql (U)on 08-02-2022 Nitrite Ql (U) Negative Negative [facility] Work Phone: No Panel Informationon 08-02 Estimated GFR (MDRD) Amer 105 mL/min >60 [facility] Work Phone: Comment on above: GFR Calc Estimated GFR (MDRD) Non-Af Amer 87 mL/min >60 [facility] Work Phone: Comment on above: Non- GFR Calc Prostate Specific Antigen Screen 2.08 ng/mL 0.00-4.00 [facility] Work Phone: Comment on above: This test was perfor med using the TPSA assay method for [employer] chemistry system. Values obtained with differentassay methods cannot be used interchangably.When changing PSA assays in the course of monitoring apatient, additional sequential testing should be carriedout to confirm baseline values. Platelets bldon 08-02-2022 Platelets (Bld) [#/Vol] 281 10*3/uL 150-450 [facility] Work Phone: Protein Test strip Ql (U)on 08-02-2022 Protein Ql (U) 15 mg/dl Negative [facility] Work Phone: Serum or plasma calcium katia urement (mass/volume)on 08-02-2022 Calcium [Mass/Vol] 9.3 mg/dL 8.5-10.1 [facility] Work Phone: Serum or plasma creatinine m easurement (mass/volume)on 08-02-2022 Creatinine [Mass/Vol] 0.92 mg/dL 0.70-1.30 [facility] Work Phone: Comment on above: The validity of the calculated GFR & GFRAA in patients over 70 years has not been determined. Clinical correlation is essential. Serum or plasma urea nitroge n measurement (mass/volume)on 08-02-2022 Urea nitrogen [Mass/Vol] 20 mg/dL 7-18 [facility] Work Phone: Thin prep Papanicolaou smear with manual screeningon 08-02-2022 Thin prep Papanicolaou smear with manual screening 5 5-15 [facility] Work Phone: Urine blood detectionon 07-22 RBC Ql (U) 10 /ul Negative [facility] Work Phone: Urine clarityon 08-02-2022 Clarity (U) Clear Clear [facility] Work Phone: Urine color determinationon 08-02-2022 Color (U) Yellow Yellow [facility] Work Phone: Urine glucose detectionon Glucose Ql (U) Normal mg/dl Normal [facility] Work Phone: Urine leukocyte esterase det ection by dipstickon 08-02-2022 Leukocyte esterase Test strip Ql (U) 25 /ul Negative [facility] Work Phone: Urine pHon 08-02-2022 pH (U) 5.0 [pH] 5.0 - 8.0 [facility] Work Phone: Urine specific gravity measu rementon 08-02-2022 Specific gravity (U) [Rel density] 1.025 1.002-1.030 [facility] Work Phone: Urobilinogen Auto test strip Ql (U)on 08-02-2022 Urobilinogen Ql (U) Normal mg/dl Normal [facility] Work Phone: Basophil percentageon 2021 Bilirubin [Mass/Vol] 0.50 mg/dL 0.20-1.00 [facility] Work Phone: Comment on above: For patients on eltr ombopag therapy, use of Dimension [place] TBIL is not recommended. Cholesterol [Mass/Vol] 116 mg/dL <200 [facility] Work Phone: Comment on above: <200 mg/dL Desirable 200-240 mg/dL Borderline >240 mg/dL High Risk Protein [Mass/Vol] 7.3 g/dL 6.4-8.2 [facility] Work Phone: Triglyceride [Mass/Vol] 95 mg/dL <199 [facility] Work Phone: Comment on above: The drugs N-Acetylcy steine and Metamizole may falsely depress this assay.Serum Triglycerides Reference Interval Normal <150 mg/dL Borderline high 150 - 199 mg/dL High 200 - 499 mg/dL Very High > or = 500 mg/dL Direct bilirubinon 2 Bilirubin.direct [Mass/Vol] 0.13 mg/dL 0.00-0.30 [facility] Work Phone: Laboratory - Chemistry and C hemistry - challengeon 03-23-2022 ALP [Catalytic activity/Vol] 62 U/L 45-117 [facility] Work Phone: ALT [Catalytic activity/Vol] 33 U/L 16-61 [facility] Work Phone: Globulin (S) [Mass/Vol] 3.6 g/dL 2.2-4.2 [facility] Work Phone: Serum or plasma albumin katia urement (mass/volume)on 03-23-2022 Albumin [Mass/Vol] 3.7 g/dL 3.2-5.0 [facility] Work Phone: Serum or plasma cholesterol in HDL measurement (mass/volume)on 03-23-2022 Cholesterol in HDL [Mass/Vol] 41 mg/dL >40 [facility] Work Phone: Comment on above: The drugs N-Acetylcy steine and Metamizole may falsely depress this assay. Reference Range HDL <40 mg/dL Low HDL Cholesterol HDL >or= 60 mg/dL High HDL Cholesterol Serum or plasma cholesterol in VLDL measurement (mass/volume)on 03-23-2022 Cholesterol in VLDL [Mass/Vol] 19 mg/dL 5-40 [facility] Work Phone: Serum or plasma low density lipoprotein (LDL) cholesterol measurement (mass/volume)on 03-23-2022 Cholesterol in LDL [Mass/Vol] 56 mg/dL 0-130 [facility] Work Phone: Thin prep Papanicolaou smear with manual screeningon 03-23-2022 Thin prep Papanicolaou smear with manual screening 17 U/L 15-37 [facility] Work Phone: Vital Signs Date Time Vital Sign Value Performing Clinician Faci lity 03-21-2025 09:33-0400 Body height 180.[address] Shan Shelton DO Work Phone: [facility] 03-21-2025 09:33-0400 Body mass index (BMI) [Ratio] 37.5 kg/m2 Dr. Shan Shelton DO Work Phone: [facility] 03-21-2025 09:33-0400 Body weight 122.[address] Sahn Shelton DO Work Phone: [facility] 03-21-2025 09:33-0400 Diastolic blood pressure 78 mm[Hg] Dr. Shan Shelton DO Work Phone: [facility] 03-21-2025 09:33-0400 Heart rate 54 /min Dr. Shan Shelton DO Work Phone: [facility] 03-21-2025 09:33-0400 Respiratory rate 18 /min Dr. Shan Shelton DO Work Phone: [facility] 03-21-2025 09:33-0400 Systolic blood pressure 122 mm[Hg] Dr. Shan Shelton DO Work Phone: [facility] 02-17-2023 09:33-0400 Body weight 118.[address] Shan Shelton Work Phone: [facility] 02-17-2023 09:33-0400 Diastolic blood pressure 66 mm[Hg] Dr. Shan Shelton Work Phone: [facility] 02-17-2023 09:33-0400 Heart rate 61 /min Dr. Shan Shelton Work Phone: [facility] 02-17-2023 09:33-0400 Respiratory rate 16 /min Dr. Shan Shelton Work Phone: [facility] 02-17-2023 09:33-0400 Systolic blood pressure 129 mm[Hg] Dr. Shan Shelton Work Phone: [facility] 02-17-2023 08:40-0400 Body height 180.[address] Shan Shelton Work Phone: [facility] 01-20-2022 08:24-0400 Body height 180.[address] Shan Shelton Work Phone: [facility] Work Phone: 01-20-2022 08:24-0400 Body weight 120.[address] Shan Shelton Work Phone: [facility] Work Phone: 01-20-2022 08:24-0400 Diastolic blood pressure 69 mm[Hg] Dr. Shan Shelton Work Phone: [facility] Work Phone: 01-20-2022 08:24-0400 Heart rate 64 /min Dr. Shan Shelton Work Phone: [facility] Work Phone: 01-20-2022 08:24-0400 Respiratory rate 16 /min Dr. Shan Shelton Work Phone: [facility] Work Phone: 01-20-2022 08:24-0400 Systolic blood pressure 113 mm[Hg] Dr. Shan Shelton Work Phone: [facility] Work Phone: 01-20-2021 09:080400 Body mass index (BMI) [Ratio] 38 kg/m2 Dr. Shan Shelton Work Phone: [facility] Work Phone: Encounters Encounter Date Encounter Type Care Provider Facility Start: 04-05-2025 End: 04-05-[address] Shan Shelton DO Work Phone: [facility] [place] Start: 04-05-2025 End: 04-05-[address] Shan Shelton DO -[facility] [place] Work Phone: Start: 04-05-2025 End: 04-05-2025 ambulatory Shan Shelton Facility:[facility] Start: 03-21-2025 End: 03-21-[address] Jose Lane MD -[facility] Work Phone: Start: 03-21-2025 End: 03-21-[address] Shan Shelton DO Work Phone: -[facility] Start: 08-27-2024 End: 08-27-2024 ambulatory Shan Shelton Facility:[facility] Start: 07-31-2024 End: 07-31-2024 ambulatory Giovanny Olea Facility:[facility] Start: 06-07-2024 ambulatory [facility] Facility:[facility] Start: 10-05-2023 End: 10-05-2023 ambulatory [facility] Work Phone: Start: 10-05-2023 End: 10-05-2023 Patient encounter procedure [facility] Work Phone: Start: 09-16-2023 End: 09-16-2023 ambulatory [facility] Work Phone: Start: 09-16-2023 End: 09-16-2023 Patient encounter procedure [facility] [place] Work Phone: Start: 06-29-2023 End: 06-29-[address] Shan Shelton Work Phone: [facility] Work Phone: Start: 06-29-2023 End: 06-29-[address] Shan Shelton Work Phone: [facility] Work Phone: Start: 05-17-2023 Non-patient / Non-visit Dr. Shan Shelton Work Phone: [facility] Work Phone: Start: 05-17-2023 End: 05-17-[address] [facility] Work [facility]: Start: 02-17-2023 End: 02-17-[address] Shan Shelton Work Phone: [facility] Work Phone: Start: 02-17-2023 End: 02-17-[address] Shan Shelton Work Phone: [facility] Work Phone: Start: 08-02-2022 End: 08-02-2022 ambulatory [facility] Work Phone: Start: 08-02-2022 End: 08-02-2022 [facility] Start: 03-23-2022 End: 03-23-[address] [facility] Start: 01-20-2022 End: 01-20-[address] Shan Shelton Work Phone: [facility] Procedures Date Procedure Procedure Detail Performing Clinician Start: 10-05-2023 MRI of brain with contrast Start: 06-29-2023 CT of abdomen and pe lvis without contrast Dr. Shan Shelton Work Phone: Start: 05-17-2023 Radionuclide imaging of perfusion of myocardium under exercise stress Dr. Shan Shelton Work Phone: Start: 07-07-2007 History of placement of stent for coronary artery disease History of coronary artery stent placement Dr. Jose Lane MD Comment on above: GDT-NHA-Oogp-Mid OM1 w/ 3.0 x 28 mm and 3.00 x 8 mm Cypher Stent 06/2007 Payers Date Payer Category Payer Self-pay [id number] 2024 Medicare [id number] 2024 Unknown [id number] 2015 Unknown R KOREY [id number] Unknown [id number] [id number] [id number] Unknown [id number] 2.16.8 [id number] Unknown [id number] 2.16.8 [id number] Unknown [id number] 2.16.8 [id number] Unknown [id number] 2.16.8 [id number] Unknown [id number] 2.16.8 [id number] Social History Date Type Detail Facility Start: 01-20-2022 End: 02-17-2023 Tobacco smoking status DEIS Unknown if ever smoked [facility] Start: 1955 Sex Assigned At Male [facility] Start: 07-31-2024 Tobacco smoking stat us NHIS Ex-smoker (finding) [facility] Evaluation note 03-21-2025 Note Date & Type Note Facility 03-21-2025 Evaluation note Diagnosis Onset Date Resolution Dyslipidemia chronic March 21, 9:31am Essential (primary) hypertension chronic March 21, 2025 9:31am History of coronary artery stent placement July 07, 2007 resolved March 21, 2025 9:31am [facility] Work Phone: Clinical Note 07-31-2024 Note Date & Type Note Facility 07-31-2024 Note [facility] Medical Records Department [address] [place] [address] History Physical Exam 07/31/24832 MR#: [id number] Acct: [id number] Name: SALTY IQBAL Rep #: [id number] : 1955 68 From: Giovanny Olea MD PCP: Dr. Shan Shelton, DO Status:[facility] Location: [place] [address] HPI - General HPI Narrative SALTY IQBAL, is a 68 M who presents for surveillance colonoscopy. His last colonoscopy was 5 years ago and 2 polyps were removed. He denies abdominal pain or blood in the stool. [facility] Medical History (Updated 07/31/24 @ 08:[address] Giovanny Olea MD) Wears hearing aid Loss of hearing Wears glasses Depression History of kidney stones High cholesterol Diverticulosis History of diverticulitis Former smoker Hypertension Cardiology follow-up encounter History of stress test Personal history of colonic polyps Obesity Erectile dysfunction GERD (gastroesophageal reflux disease) Atherosclerosis of coronary artery of [place] heart without angina pectoris Essential (primary) hypertension Dyslipidemia Home Medications ???Medication ???Instructions ???Recorded ???Last Taken ???Type aspirin 81 mg tablet,delayed 81 mg PO DAILY 01/11/19 Unknown History release (Adult Low Dose Aspirin) multivitamin 1 tab PO DAILY 01/11/19 Unknown History pantoprazole 40 mg tablet,delayed 40 mg PO QAM 30 days #30 tabs 01/12/19 07/31/24 05:30 History release sertraline 50 mg tablet 50 mg PO DAILY 30 days #30 tabs 06/01/19 07/31/24 05:30 History omega-3 fatty acids 1,000 mg 2,000 mg PO QHS 01/20/21 Unknown History capsule (Fish Oil Concentrate) ezetimibe 10 mg-simvastatin 20 mg See Rx Instructions .Route 02/06/24 Unknown Rx tablet .COMPLEX #90 tabs lisinopril 5 mg tablet 5 mg PO DAILY #90 tabs 02/06/24 Unknown Rx metoprolol tartrate 25 mg tablet 25 mg PO BID #180 tabs 02/06/24 07/31/24 05:30 Rx nitroglycerin 0.4 mg sublingual 0.4 mg sublingual Q5-15M PRN 02/06/24 Unknown Rx tablet Cardiac/Chest Pain 30 days #25 tabs sildenafil 100 mg tablet 100 mg PO ONCE PRN sexual activity 02/06/24 Unknown History coenzyme Q10 50 mg capsule (Co 50 mg PO QDAY 06/07/24 Unknown History Q-10) Allergy/AdvReac Type Severity Reaction Status Date / Time Penicillins Allergy Anaphylaxis Verified 07/31/24 08:25 atorvastatin (From Lipitor) AdvReac myalgia Verified 07/31/24 08:25 cefaclor (From Ceclor) AdvReac Unknown Verified 07/31/24 08:25 Opioids - Morphine Analogues AdvReac bradycardia Verified 07/31/24 08:25 tetracycline AdvReac Unknown Verified 07/31/24 08:25 Family History Brother Heart disease Myocardial infarction, Onset Age: 46 from [place] CAD (coronary artery disease) STENTS Colon polyps Brother Heart disease Myocardial infarction, Onset Age: 50 CAD (coronary artery disease) CABG Colon polyps Father Cancer Mother CAD (coronary artery disease) CABGx x 3 Colon polyps Other Atherosclerosis of coronary artery of [place] heart without angina pectoris Dyslipidemia Essential (primary) hypertension History of coronary artery stent placement Surgical History History of cardiac catheterization Hx of colonoscopy History of left heart catheterization (10/03/07) History of herniorrhaphy History of coronary artery stent placement (07/07/07) Social History household members: spouse current occupational status: retired Smoking Status: Former smoker how long ago did patient quit smokin years ago alcohol intake: current alcohol intake frequency: 0-2 drinks per day Alcohol type: beer substance use type: does not use caffeine: Yes Type: coffee Number of servings: 3 Past Medical/Surgical History Planned Operation Planned Operative Procedure(s): CSCOPE S.O.S: No Previous Hospitalizations/Surgeries HX Hospitalizations: No HX of Surgeries: hernia repair approx 2006 angioplasty 2019 colonoscopy Any Problems With Anesthesia: No You/Your Family Experience Fever (Hyperthermia) With Anes: No Cholinesterase deficiency: No Cardiovascular Hx Chest Pain within Last 2 months: No Hx of Irregular Heartbeat and/or Afib: No Hx Heart Attack: Yes (06/2007) Hx Congestive Heart Failure: No Hx Rheumatic Fever: No Hx Hypertension: Yes (controlled on meds) Hx Internal Defibrillator: No Hx Pacemaker: No Hx Cardiac Catheterization: Yes (2006 at [facility], see Varnu now) Hx Cardiac Surgery/Stents/Etc.: Yes Hx Stress Test: Yes (02/2019) Hx Pain in Legs when Walking/Leg Cramps: No Respiratory Chronic Cough: No HX of Shortness of Breath: No Hoarseness: No Hx Chronic Obstructive Pulmonary Disease (COPD): No Hx Asthma: No Hx Emphysema: No H (more content not included)... [facility] Evaluation note 07-07-2007 Note Date & Type Note Facility 07-07-2007 Evaluation note Diagnosis Onset Date Dyslipidemia chronic Essential (primary) hypertension chronic History of coronary artery stent placement July 07, 2007 [facility] Work Phone: Evaluation note Note Date & Type Note Facility Evaluation note No assessment information availa [facility] Work Phone: Reason for referral (narrative) Note Date & Type Note Facility Reason for referral (narrative) No reason for referral information available [facility] Work Phone: Chief Complaint and Reason for Visit Chief Complaint 1 Y FU EORDERS Reason for Visit Dyslipidemia Essential (primary) hypertension History of coronary artery stent placement Chief Complaint 1 Y FU E ORDER Reason for Visit Dyslipidemia Essential (primary) hypertension History of coronary artery stent placement Chief Complaint SOB, HX CORONARY VERO NT SOB, HX CORONARY STENT Amb Documentation Other microscopic hematuria Chief Complaint Other microscopic he maturia EORDER [facility] ORDER Chief Complaint Other microscopic he maturia EORDER [facility] [employer] ORDER PERSISTENT VENTURA, [facility] BRAIN CANCER Chief Complaint Admit Date 1 Y FU March 21, 2025 9:31 am Reason for Visit Admit Date Dyslipidemia March 21, 2025 9:31 am Essential (primary) hypertension March 212024 9:31am History of coronary artery stent placeme nt March 21, 2025 9:31am Family History No Family History Records Found Relationship Condition Age at Onset Recorded Date/T smita brother Cardiac disease Unknown Myocardial infarction 45 Coronary artery disease Unknown Myocardial infarction 50 father Malignant neoplasm Unknown mother Coronary artery disease Unknown Relationship Condition Age at Onset Recorded Date/T smita Not Specified Essential hypertension Unknown History of coronary artery stent placement Unknown Dyslipidemia Unknown Atherosclerosis of c oronary artery of [place] heart without angina pectoris Unknown brother Cardiac disease Unknown Myocardial infarction 46 Coronary artery disease Unknown Myocardial infarction 50 father Malignant neoplasm Unknown mother Coronary artery disease Unknown Relationship Condition Age at Onset Recorded Date/T smita Not Specified Essential hypertension Unknown History of coronary artery stent placement Unknown Dyslipidemia Unknown Atherosclerosis of c oronary artery of [place] heart without angina pectoris Unknown brother Cardiac disease Unknown Myocardial infarction 45 Coronary artery disease Unknown Polyp of colon Unknown Myocardial infarction 50 father Malignant neoplasm Unknown mother Coronary artery disease Unknown Advance Directives No Advanced Directives Records Found Advance Directive Response Recorded Date/ Time Living Will Yes June 14 9:21am Power of Fashion Show Director Yes June 14, 2019 9:21am Advance Directive Response Recorded Date/ Time Living Will Yes June 14 8:21am Power of Fashion Show Director Yes June 14, 2019 8:21am Advance Directive Response Recorded Date/ Time Living Will Yes June 14 9:21am Do you have a Healthcare Power of Fashion Show Director? Yes June 14, 2019 9:21am Summary Purpose Additional Source Comments Goals (unrecognized section and content) Goals may be documented in a n alternate sectionGoals may be documented in an alternate sectionGoals may be documented in an alternate sectionGoals may be documented in an alternate sectionGoals may be documented in an alternate sectionGoals may be documented in an alternate sectionGoals may be documented in an alternate sectionGoals may be documented in an alternate section Care Teams (unrecognized sec tion and content) Team Status: Active Member Role Status Dates Dr. Shan Shelton , DO Family Provider Active Dr. Shan Shelton , DO Primary Care Provider Active Team Status: Inactive Member Role Status Dates Dr. Shan Shelton DO Primary Care Provider, Referrin g Provider Active Dr. Jose Lane MD Attending Provider Active Team Status: Inactive Member Role Status Dates Dr. Shan Shelton DO Primary Care Provider Active Kishor Neal MEDICAL APPLIANCE MAKER, MEDICAL APPLIANCE MAKER-C Attending Provider, Referring Pro vider Active Team Status: Active Member Role Status Dates Dr. Shan Shelton DO Primary Care Provider Active Dr. Jose Lane MD Attending Provider, Referring Provider, Other Provider Active Team Status: Active Member Role Status Dates Dr. Shan Shelton DO Primary Care Provider Active Emma Ferreira MEDICAL APPLIANCE MAKER, MEDICAL APPLIANCE MAKER-C Attending Provider Active Team Status: Inactive Member Role Status Dates Dr. Shan Shelton DO Primary Care Provider Active Dr. Jose Lane MD Attending Provider, Referring Pro vider Active Team Status: Inactive Member Role Status Dates Dr. Shan Shelton DO Primary Care Prov ider, Attending Provider, Referring Provider Active Team Status: Inactive Member Role Status Dates Dr. Shan Shelton DO Primary Care Prov ider, Attending Provider, Referring Provider Active Kishor Neal MEDICAL APPLIANCE MAKER, MEDICAL APPLIANCE MAKER-C Other Provider Active Team Status: Active Member Role/Relationship Status Dates Dr. Shan Shelton DO Family Provider Active Dr. Shan Shelton DO Primary Care Provider Active Team Status: Inactive Member Role/Relationship Status Dates Dr. Shan Shelton DO Primary Care Provider Active Start: March 21, 2025 End: March 21, 2025 Dr. Shan Shelton DO Referring Provider Active Start: March 21, 2025 End: March 21, [address] MD Attending Provider Active S tart: March 21, 2025 End: March 21, 2025 Team Status: Inactive Member Role/Relationship Status Dates Dr. Shan Shelton DO Primary Care Provider Active Start: April 05, 2025 End: April 05, 2025 Dr. Shan Shelton DO Attending Provider Active Start: April 05, 2025 End: April 05, 2025 Dr. Shan Shelton DO Referring Provider Active Start: April 05, 2025 End: April 05, 2025 (unrecognized sect ion and content) No Status Records Found INFORMATION SOURCE (unrecogn ized section and content) DATE CREATED AUTHOR 04/12/2025 [facility] FOR RECORDS PERTAINING TO PATIENTS WHO ARE OR HAVE BEEN ENROLLED IN A CHEMICAL DEPENDENCY/SUBSTANCEABUSE PROGRAM, SOME INFORMATION MAY BE OMITTED. This clinical summary was aggregated from multiple sources. Caution should be exercised in using it in the provision of clinical care. This summary normalizes information from multiple sources, and as a consequence, information in this document may materially change the coding, format and clinical context of patient data. In addition, data may be omitted in some cases. CLINICAL DECISIONS SHOULD BE BASED ON THE PRIMARY CLINICAL RECORDS. [facility] [employer] [facility]. provides no warranty or guarantee of the accuracy or completeness of information in this document.
== END | disposition home or self-care (01) ==
LOC: LAB 14:22
PROVIDERS: PCP Family Medicine; Referring Provider Physician Assistant Medical; Visit Provider Physician Assistant Medical
DX: R07.89 Other chest pain (principal); Z95.5 Presence of coronary angioplasty implant and graft
CPT/HCPCS: 36415; 85610

== ENCOUNTER 2025-06-10 06:50 | Day surgery (SDC) | payer MEDICARE, BC, SELFPAY ==
[2025-06-07 09:26] VITALS: BMI 36.9
--- OUTSIDE RECORDS SUMMARY | 2025-06-10 07:00 | XMS RPT_ITS | CCD ---
Author Organization [facility] Care Team Providers Care Optical Effects Layout Person Name Role Phone Dr. Shan Shelton Primary Care Provider [phone] Dr. Shan Shelton Referring Provider [phone] Ángel INDUSTRIAL EDUCATION INSTRUCTOR, INDUSTRIAL EDUCATION INSTRUCTORAneta Chandler Attending Provider [phone] Dr. Shan Shelton Primary Care Provider [phone] Dr. Shan Shelton Referring Provider [phone] Attending Provider [phone] Dr. Shan Shelotn Primary Care Provider [phone] Attending Provider [phone] Referring Provider [phone] Other Provider BALWINDER Ferreira NP Attending Provider Dr. Shan Shelton DO Primary Care Provider [phone] Dr. Shan Shelton DO Referring Provider [phone] MD Attending Provider [phone] Dr. Shan Shelton DO Attending Provider [phone] Dr. Shan Shelton DO Primary Care Physician Dr. Jose Lane MD Attending Physician Dr. Shan Shelton DO Attending Physician Dr. Prakash Archibald MD Attending Physician Archibald MD, Dr. Prakash Emergency Department Physician Libia Orozco Attending Physician [phone] Libia Orozco Referring Provider [phone] Nikita, Shan Primary Care Unavailable Prakash Archibald Attending Unavailable Ariana, Jose Referring Unavailable Nikita, Shan Primary Care Unavailable Ariana, [place] Attending Unavailable Libia Orozco Attending Unavail able Libia Orozco Referring Unavail able Nikita, Shan Primary Care Unavailable Nikita, Shan Referring Unavailable Nikita, Shan Primary Care Unavailable Giovanny Olea Consulting Unavailable Giovanny Olea Attending Unavailable Nikita, Shan Referring Unavailable Ariana, [place] Attending Unavailable Nikita, Shan Primary Care Unavailable Libia Orozco Attending Unavail able Nikita, Shan Primary Care Unavailable Nikita, Shan Referring Unavailable Nikita, Shan Referring Unavailable Nikita, Shan Primary Care Unavailable Giovanny Olea Attending Unavailable Nikita, Shan Primary Care Unavailable Nikita, Shan Attending Unavailable Nikita, Shan Primary Care Unavailable Nikita, Shan Attending Unavailable Nikita, Shan Referring Unavailable Allergies Allergy Classification Reported Allergen(s) Allergy Type Date of Onset Reaction(s) Facility (10 sources) atorvastatin Drug Allergy 2 myalgia [facility] (10 sources) Cefaclor Drug Allergy 2 Unknown [facility] (11 sources) Penicillins; Translations: [Penicillins] Allergy to substance 2 Anaphylaxis [facility] (10 sources) Tetracycline Drug Allergy 2 Unknown [facility] (11 sources) Opioids - Morphine Analogues; Translations: [Opioids - Morphine Analogues] Propensity to adverse reactions 2 bradycardia [facility] (1 source) atorvastatin Drug Allergy 5 [facility] Repository (1 source) Cefaclor Drug Allergy 5 [facility] Repository (1 source) Tetracycline Drug Allergy 5 [facility] Repository Medications Current Medications Medication Drug Class(es) Dates Sig (Normalized) Sig (Original) aspirin 81 mg delayed release oral tablet (10 sources) Platelet Aggregation Inhibitor, Nonsteroidal Anti-inflammatory Drug Start: 01-11-2019 Multivitamin preparation (6 sources) Start: 01-11-2019 take 1 tablet by mouth once daily Multivitamin Active 1 TABLET PO DAILY January 10, 2019 11:00pm Start: 01-11-2019 take 1 tablet by terrance th once daily Multivitamin Active 1 TABLET PO DAILY January 11, 2019 12:00am Multivitamin tablet (4 sources) Start: 01-11-2019 Start: 01-11-2019 Multivitamin t ablet Active 1 {tbl} PO DAILY January 11, 2019 12:00am [place]-3 Fatty Acids (Fish Oi l Concentrate) 1,000 mg capsule (20 sources) Start: 01-20-2021 Start: 01-20-2021 [place]-3 Fatty Acids (Fish Oil Concentrate) 1,000 mg capsule Active 2000 mg PO AT BEDTIME January 20, 2021 10:07am Start: 01-20-2021 [place]-3 Fatty Acids (Fish Oil Concentrate) 1,000 mg capsule Active 2000 MG PO AT BEDTIME January 20, 2021 9:07am Start: 01-20-2021 [place]-3 Fatty Acids (Fish Oil Concentrate) 1,000 mg capsule Active 2000 MG PO AT BEDTIME January 20, 2021 10:07am Start: 06-01-2019 End: 01-20-2021 [place]-3 Fatty Acids (Fish Oi l Concentrate) 1,000 mg capsule Discontinued 1200 mg PO THREE TIMES A DAY June 01, 2019 1:50pm January 20, 2021 10:07am Start: 06-01-2019 End: 01-20-2021 [place]-3 Fatty Acids (Fish Oi l Concentrate) 1,000 mg capsule Discontinued 1200 MG PO THREE TIMES A DAY June 01, 2019 12:50pm January 20, 2021 9:07am Start: 06-01-2019 End: 01-20-2021 [place]-3 Fatty Acids (Fish Oi l Concentrate) 1,000 mg capsule Discontinued 1200 MG PO THREE TIMES A DAY June 01, 2019 1:50pm January 20, 2021 10:07am Start: 01-11-2019 End: 06-01-2019 take 1 capsule by mouth once daily [place]-3 Fatty Acids (Fish Oil Concentrate) 1,000 mg capsule Discontinued 1000 mg PO DAILY January 11, 2019 12:00am June 01, 2019 1:51pm Start: 01-11-2019 End: 06-01-2019 take 1 capsule by mouth once daily [place]-3 Fatty Acids (Fish Oil Concentrate) 1,000 mg capsule Discontinued 1000 MG PO DAILY January 10, 2019 11:00pm June 01, 2019 12:51pm Start: 01-11-2019 End: 06-01-2019 take 1 capsule by mouth once daily [place]-3 Fatty Acids (Fish Oil Concentrate) 1,000 mg capsule Discontinued 1000 MG PO DAILY January 11, 2019 12:00am June 01, 2019 1:51pm pantoprazole 40 mg delayed release oral tablet (20 sources) Proton Pump Inhibitor Start: 01-11-2019 End: 01-12-2019 take 1 tablet by mouth once daily in the morning Start: 01-11-2019 End: 01-12-2019 Pantoprazole 40 mg tablet,de layed release (/EC) Discontinued PO 30 0 January 11, 2019 12:00am January 12, 2019 8:38am ubidecarenone 100 mg oral ta blet (16 sources) Start: 05-15-2025 take 10 tablets by m outh once daily Start: 06-07-2024 End: 05-15-2025 Coenzyme Q10 (Co Q-10) 50 mg capsule Discontinued 50 mg PO daily June 07, 2024 12:00am May 15, 2025 1:24pm Start: 01-11-2019 End: 01-20-2021 Coenzyme Q10 (Co Q-10) 100 m g capsule Discontinued 100 mg PO DAILY January 11, 2019 12:00am January 20, 2021 10:07am Completed/Discontinued Medications Medication Drug Class(es) Dates Sig (Normalized) Sig (Original) busPIRone hydrochloride 7.5 mg oral tablet (10 sources) Start: 01-20-2022 End: 06-07-2024 take 1 tablet by mouth twice daily Buspirone 7.5 mg tablet Discontinued 7.5 mg PO TWICE A DAY January 20, 2022 12:00am June 07, 2024 9:06am ezetimibe 10 mg / simvastatin 20 mg oral tablet (20 sources) HMG-CoA Reductase Inhibitor, Dietary Cholesterol Absorption Inhibitor Start: 01-20-2023 End: 04-24-2025 take 1 tablet by mouth once daily at bedtime Ezetimibe-Simvasta tin 10-20 mg tablet Discontinued 0 .ROUTE .COMPLEX 90 3 April 19, 2025 8:19am April 24, 2025 11:32am TAKE 1 TABLET BY MOUTH EVERYDAY AT [...] Angiotensin Converting Enzyme Inhibitor Start: 01-18-2020 End: 04-16-2025 take 1 tablet by mouth once daily Lisinopril 5 mg tablet Discontinued 5 mg PO DAILY 90 3 April 12, 2025 11:49am April 16, 2025 11:07am Start: 01-11-2019 End: 01-07-2020 take 1 tablet [...] (20 sources) beta-Adrenergic Ryland Start: 01-24-2020 End: 05-09-2025 take 1 tablet by mouth twice daily [...] January 07, 2023 10:09am polyethylene glycol 3350 [id number] mg / potassium chloride 2970 mg / sodium bicarbonate 6740 mg / sodium chloride 5860 mg / sodium sulfate 45986 mg powder for oral solution (10 sources) Osmotic Laxative Start: 06-04-2019 End: 01-20-2021 [...] Discontinued 50 mg PO DAILY 30 30 January 12, 2019 8:37am June 01, 2019 1:51pm Start: 01-11-2019 End: 01-12-2019 Sertraline 50 mg tablet Disc ontinued PO 30 January 11, 2019 12:00am January 12, 2019 8:38am sildenafil 100 mg oral tablet (4 sources) Phosphodiesterase 5 Inhibitor Start: 02-06-2024 End: 03-21-2025 take 1 tablet by mouth once as needed Sildenafil 100 mg tablet Discontinued 100 mg PO ONCE as needed for sexual activity February 06, 2024 12:00am March 21, 2025 9:40am tadalafil 10 mg oral tablet (10 sources) Phosphodiesterase 5 Inhibitor Start: 04-01-2021 End: 02-06-2024 take 1 tablet by mouth every twenty-four hours Tadalafil (Cialis) 10 mg tablet Discontinued 10 mg PO DAILY as needed for sexual activity April 01, 2021 12:00am February 06, 2024 8:57am administer approximately 30min before sexual activity; do not use more than 1 dose per 24hrs, do not use with NTG traZODone hydrochloride 100 mg oral tablet (14 sources) Serotonin Reuptake Inhibitor Start: 03-21-2025 End: 05-15-2025 take 1 tablet by mouth at bedtime Trazodone 100 mg tablet Discontinued 100 mg PO AT BEDTIME March 21, 2025 12:00am May 15, 2025 1:25pm Start: 01-11-2019 End: 02-06-2024 take 1 tablet by mouth at bedtime Trazodone 100 mg tablet Discontinued 100 mg PO AT BEDTIME January 11, 2019 12:00am February 06, 2024 8:56am Problems Active Problems Problem Classification Problem Date Documented Da te Episodic/Chronic Abdominal pain (1 source) Unspecified abdominal pain; Translations: [Unspecified abdominal pain] Onset: 05-20-2025 Episodic Coronary atherosclerosis and other heart disease (11 sources) Coronary atherosclerosis; Translations: [Atherosclerotic heart disease of [place] coronary artery without angina pectoris] Onset: 09-20-2024 01-17-2021 Chronic Coronary atherosclerosis and other heart disease (3 sources) Presence of coronary angioplasty implant and graft; Translations: [Percutaneous transluminal coronary angioplasty status] Onset: 07-07-2007 Episodic Diabetes mellitus without complication (1 source) Impaired fasting glucose; Translations: [Impaired fasting glucose] Onset: 04-10-2025 Episodic Disorders of lipid metabolism (17 sources) Dyslipidemia; Translations: [Hyperlipidemia, unspecified] Chronic Essential hypertension (17 sources) Essential hypertension; Translations: [Essential (primary) hypertension] Chronic Nonspecific chest pain (5 sources) Chest discomfort; Translations: [Other chest pain] Onset: 05-15-2025 05-22-2025 Episodic Other and unspecified benign neoplasm (4 sources) History of polyp of colon; Translations: [History of colonic polyps] 07-31-2024 Episodic Other circulatory disease (2 sources) H/O: heart disorder; Translations: [Personal history of other diseases of the circulatory system] 05-22-2025 Episodic Other lower respiratory disease (7 sources) Dyspnea on exertion; Translations: [Other forms of dyspnea] 04-29-2023 Episodic Past or Other Problems Problem Classification Problem Date Documented Da te Episodic/Chronic Other screening for suspected conditions (not mental disorders or infectious disease) (5 sources) Patient encounter status; Translations: [Encounter for screening for malignant neoplasm of colon] Onset: 08-31-2024 06-07-2024 Episodic Results Test Name Value Interpretation Reference Range Facility Cardiology Visit Reporton Cardiology Visit Report [facility] [address] [place], [place] [address] OFFICE VISIT Date of Service: 05/15/25 MR#: [id number] Acct: [id number] Name: SALTY IQBAL Rep #: [id number] : 1955 Provider: ЕКАТЕРИНА Gordillo Age/Sex: 69/M Location: [facility] Status: Signed HPI HPI History of Present Illness Details: Pleasant 69-year-old man with a previous cardiac history consisted of angina status [...] a metabolic workload of 9 metabolic equivalents. Pt was in the ER yesterday (05/14/25) he presented with epigastric pain, nausea, vomiting, diaphoresis, diarrhea. It radiated upwards. He did take NTG. This lasted approx 20 minutes. Symptoms were relieved with NTG. Troponins were negative. This was what he had prior to his previous stenting. Intake Vital Signs 05/14/25 15:19 05/15/25 13:21 Height 5 ft 11 in 5 ft 11 in Weight: 265 lb BMI 36.9 BP 130/75 H Blood Pressure Location Lt brachial Position Sitting Respiration 18 Pulse 60 Pulse Source NIBP Intake Visit Reasons: S/P [facility] 05/14 Metabolic Specialist Required: No Is patient in pain?: No Allergies Penicillins Allergy (Verified 05/15/25 13:24) Anaphylaxis atorvastatin (From Lipitor) Adverse Reaction (Verified 05/15/25 13:24) myalgia cefaclor (From Ceclor) Adverse Reaction (Verified 05/15/25 13:24) Unknown Opioids - Morphine Analogues Adverse Reaction (Verified 05/15/25 13:24) bradycardia tetracycline Adverse Reaction (Verified 05/15/25 13:24) Unknown Medications ???Medication ???Instructions ???Recorded ???Confirmed ???Type aspirin 81 mg tablet,delayed 81 mg PO DAILY 01/11/19 05/15/25 H istory release (Adult Low Dose Aspirin) multivitamin 1 tab PO DAILY 01/11/19 05/15/25 H istory pantoprazole 40 mg tablet,delayed 40 mg PO QAM 30 days #30 tabs 05/15/25 History release sertraline 50 mg tablet 50 mg PO DAILY 30 days #30 tabs 05/15/25 History omega-3 fatty acids 1,000 mg 2,000 mg PO QHS 01/20/21 05/15/25 History capsule (Fish Oil Concentrate) nitroglycerin 0.4 mg sublingual 0.4 mg sublingual Q5-15M PRN 02/0505/15/25 Rx tablet Cardiac/Chest Pain 30 days #25 tab s lisinopril 5 mg tablet 5 mg PO DAILY #90 tabs 04/16/25 Rx ezetimibe 10 mg-simvastatin 20 mg See Rx Instructions .Route 05/15/25 Rx tablet .COMPLEX #90 tabs metoprolol tartrate 25 mg tablet 25 mg PO BID #180 tabs 05/09/25 Rx coenzyme Q10 100 mg tablet 100 mg PO QDAY 05/15/25 05/15/25 H istory Ejection fraction %: 50 Have you fallen in the past year?: No PFSH Medical History Wears hearing aid Loss of hearing Wears glasses Depression History of kidney stones High cholesterol Diverticulosis History of diverticulitis Former smoker Hypertension Cardiology follow-up encounter History of stress test Personal history of colonic polyps Obesity Erectile dysfunction GERD (gastroesophageal reflux disease) Atherosclerosis of coronary artery of [place] heart without angina pectoris Essential (primary) hypertension Dyslipidemia Surgical History History of cardiac catheterization Hx of colonoscopy History of left heart catheterization (10/03/07) History of herniorrhaphy History of coronary artery stent placement (07/07/07) Family History Brother Heart disease Myocardial infarction, Onset Age: 46 from [place] CAD (coronary artery disease) STENTS Colon polyps Brother Heart disease Myocardial infarction, Onset Age: 50 CAD (coronary artery disease) CABG Colon polyps Father Cancer Mother CAD (coronary artery disease) CABGx x 3 Colon polyps Other Atherosclerosis of coronary artery of [place] heart without angina pectoris Dyslipidemia Essential (primary) hypertension History of coronary artery stent placement Social History household members: spouse current occupational status: retired Smoking Status: Former smoker how long ago did patient quit smokin years ago alcohol intake: current alcohol intake frequency: 0-2 drinks per day Alcohol type: beer substance use type: does not use caffeine: Yes Type: coffee Number of servings: 3 ROS Const Const: Positive for fa (more content not included)... Normal [facility] International normalized rat io (INR) calculationOrdered By: Libia Perrin on 05-15-2025 INR Coag (Bld) [Relative time] 1.1 {INR} [facility] Prothrombin Time w/INRon INR Coag (PPP) [Relative time] 1.1 {INR} Normal [facility] Comment on above: Performed By: #### L 499.0043 #### [facility] [address] [place], [place], [address] PT Coag (PPP) [Time] 13.9 s Normal 11.7-14.9 [facility] Comment on above: Performed By: #### L 499.0043 #### [facility] [address] [place], [place], [address] Prothrombin timeOrdered By: Libia Perrin on 05-15-2025 PT Coag (PPP) [Time] 13.9 s 11.7-14.9 [facility] 12 Lead EKGon 05-14-2025 12 Lead EKG [facility] [address] [place] [address] 12 Lead EKG 05/14/25 1531 MR#: [id number] Acct: [id number] Name: SALTY IQBAL Rep #: [id number] : 1955 69 From: Aaron Bledsoe MD Attending Dr: Status: DEP ER Ordering Dr: Prakash Archibald MD Date: 05/14/25 Location: ED Sex: M C Admitted: Test Reason : indigestion Blood Pressure : */* mmHG Vent. Rate : 78 BPM Atrial Rate : 78 BPM P-R Int : 166 ms QRS Dur : 78 ms QT Int : 382 ms P-R-T Axes : 37 6 31 degrees QTcB Int : 435 ms Normal sinus rhythm Normal ECG Confirmed by Aaron Bledsoe ([id number]), video tape editor JUAN DEGROOT ([id number]) on 05/16/2025 5:54:23 AM Referred By: Confirmed By: Aaron Bledsoe 05/16/25 0554 Date Aaron Bledsoe MD CC: Dr. Shan Shelton DO; Dr. Prakash Archibald MD Signed Normal [facility] Absolute lymphocyte countOrd ered By: Prakash Archibald on 05-14-2025 Lymphocytes Auto (Unsp spec) [#/Vol] 1.36 10*3/uL 0.83-4.51 [facility] Absolute neutrophil countOrd ered By: Prakashwilbert Archibald on 05-14-2025 Neutrophils (Bld) [#/Vol] 8.9 10*3/uL High 2.0-7.7 [facility] Anion gap in Serum or Plasma Ordered By: Prakash Archibald on 05-14-2025 Anion gap [Moles/Vol] 14 mmol/L 5-15 [facility] Automated lymphocyte count a s percentage of total leukocytesOrdered By: Prakash Archibald on 05-14-2025 Lymphocytes/100 WBC Auto (Unsp spec) 11.6 % Low 19-41 [facility] BUN/creatinine ratioOrdered By: Prakash Archibald on 05-14-2025 Urea nitrogen/Creatinine [Mass ratio] 18.8 mg/mg 10- [facility] Basic Metabolic Profile (BMP )on 05-14-2025 BUN/CRE 18.8 RATIO Normal - [facility] Comment on above: Performed By: #### L 500.4050, L501.4021, L100.0100, L500.2500, L501.2450 #### [facility] [address] [place], [address] Calcium [Mass/Vol] 9.5 mg/dL Normal 7.6-11.0 [facility] Comment on above: Performed By: #### L 500.4050, L501.4021, L100.0100, L500.2500, L501.2450 #### [facility] [address] [place], [address] Chloride [Moles/Vol] 105 mmol/L Normal 98-108 [facility] Comment on above: Performed By: #### L 500.4050, L501.4021, L100.0100, L500.2500, L501.2450 #### [facility] [address] [place], [address] CO2 [Moles/Vol] 19.7 mmol/L Low 21.0-32.0 [facility] Comment on above: Performed By: #### L 500.4050, L501.4021, L100.0100, L500.2500, L501.2450 #### [facility] [address] [place], [address] Creatinine [Mass/Vol] 1.03 mg/dL Normal 0.70-1.20 [facility] Comment on above: Performed By: #### L 500.4050, L501.4021, L100.0100, L500.2500, L501.2450 #### [facility] [address] [place], [address] ECRCL 88.37 ml/min Normal 50-250 [facility] Comment on above: Performed By: #### L 500.4050, L501.4021, L100.0100, L500.2500, L501.2450 #### [facility] [address] [place], [address] GAP 14 Normal 5-15 [facility] Comment on above: Performed By: #### L 500.4050, L501.4021, L100.0100, L500.2500, L501.2450 #### [facility] [address] [place], [address] GFR/1.73 sq M.predicted among non-blacks MDRD (S/P/Bld) [Vol rate/Area] 78 mL/min/{1.73_m2} Normal >60 [facility] Comment on above: Result Comment: mL/m in/1.73m2 CKD-EPI Creatinine Equation (2020) Performed By: #### L 500.4050, L501.4021, L100.0100, L500.2500, L501.2450 #### [facility] [address] [place], [address] Glucose [Mass/Vol] 123 mg/dL High 70-99 [facility] Comment on above: Performed By: #### L 500.4050, L501.4021, L100.0100, L500.2500, L501.2450 #### [facility] [address] [place], [address] Potassium [Moles/Vol] 4.8 mmol/L Normal 3.3-5.1 [facility] Comment on above: Result Comment: Hemo lysis present, Results??could be affected. ?? Performed By: #### L 500.4050, L501.4021, L100.0100, L500.2500, L501.2450 #### [facility] [address] [place], [address] Sodium [Moles/Vol] 138 mmol/L Normal 133-145 [facility] Comment on above: Performed By: #### L 500.4050, L501.4021, L100.0100, L500.2500, L501.2450 #### [facility] [address] [place], [address] Urea nitrogen [Mass/Vol] 19 mg/dL Normal 4-19 [facility] Comment on above: Performed By: #### L 500.4050, L501.4021, L100.0100, L500.2500, L501.2450 #### [facility] [address] [place], [address] Basophil percentageOrdered B y: Prakash Archibald on 05-14-2025 Basophils/100 WBC (Bld) 0.3 % 0-1 [facility] Bilirubin, totalOrdered By: Prakash Archibald on 05-14-2025 Bilirubin [Mass/Vol] 0.49 mg/dL 0.00-1.30 [facility] CBC W/Diff, Automatedon 04-23-2024 Absolute Lymph 1.36 X10 3/uL Normal 0.83-4.51 [facility] Comment on above: Performed By: #### L 500.4050, L501.4021, L100.0100, L500.2500, L501.2450 #### [facility] [address] [place], [address] Absolute Neut 8.9 X10 3/uL High 2.0-7.7 [facility] Comment on above: Performed By: #### L 500.4050, L501.4021, L100.0100, L500.2500, L501.2450 #### [facility] [address] [place], [address] Basophils/100 WBC (Bld) 0.3 % Normal 0-1 [facility] Comment on above: Performed By: #### L 500.4050, L501.4021, L100.0100, L500.2500, L501.2450 #### [facility] [address] [place], [address] Eosinophils/100 WBC (Bld) 1.6 % Normal 0-5 [facility] Comment on above: Performed By: #### L 500.4050, L501.4021, L100.0100, L500.2500, L501.2450 #### [facility] [address] [place], [address] Erythrocyte distribution width (RBC) [Ratio] 12.6 % Normal 11.6-14.6 [facility] Comment on above: Performed By: #### L 500.4050, L501.4021, L100.0100, L500.2500, L501.2450 #### [facility] [address] [place], [address] Hematocrit (Bld) [Volume fraction] 46.2 % Normal 40-54 [facility] Comment on above: Performed By: #### L 500.4050, L501.4021, L100.0100, L500.2500, L501.2450 #### [facility] [address] [place], [address] Hemoglobin (Bld) [Mass/Vol] 16.2 g/dL Normal 13.0-16.5 [facility] Comment on above: Performed By: #### L 500.4050, L501.4021, L100.0100, L500.2500, L501.2450 #### [facility] [address] [place], [address] IG% 0.300 Normal 0.0-0.9 [facility] Comment on above: Result Comment: IG% - Immature Granulocytes (promyelocytes, myelocytes and metamyelocytes) > 1% indicates that a LEFT SHIFT is Present. Performed By: #### L 500.4050, L501.4021, L100.0100, L500.2500, L501.2450 #### [facility] [address] [place], [address] Lymphocytes/100 WBC (Bld) 11.6 % Low 19-41 [facility] Comment on above: Performed By: #### L 500.4050, L501.4021, L100.0100, L500.2500, L501.2450 #### [facility] Laboratory [address] [place], [address] MCH (RBC) [Entitic mass] 31.6 pg Normal 27.0-32.0 [facility] Comment on above: Performed By: #### L 500.4050, L501.4021, L100.0100, L500.2500, L501.2450 #### [facility] Laboratory [address] [place], [address] MCHC (RBC) [Mass/Vol] 35.1 g/dL Normal 32-36 [facility] Comment on above: Performed By: #### L 500.4050, L501.4021, L100.0100, L500.2500, L501.2450 #### [facility] Laboratory [address] [place], [address] MCV (RBC) [Entitic vol] 90.1 fL Normal 80-94 [facility] Comment on above: Performed By: #### L 500.4050, L501.4021, L100.0100, L500.2500, L501.2450 #### [facility] Laboratory [address] [place], [address] Monocytes/100 WBC (Bld) 10.0 % Normal 0-10 [facility] Comment on above: Performed By: #### L 500.4050, L501.4021, L100.0100, L500.2500, L501.2450 #### [facility] Laboratory [address] [place], [address] Neutrophils/100 WBC (Bld) 76.2 % High 47-70 [facility] Comment on above: Performed By: #### L 500.4050, L501.4021, L100.0100, L500.2500, L501.2450 #### [facility] Laboratory [address] [place], [address] Nucleated RBC (Bld) [#/Vol] 0 10*3/uL Normal 0-5 [facility] Comment on above: Performed By: #### L 500.4050, L501.4021, L100.0100, L500.2500, L501.2450 #### [facility] Laboratory [address] [place], [address] Platelet mean volume (Bld) [Entitic vol] 9.4 fL Normal 6.2-12.0 [facility] Comment on above: Performed By: #### L 500.4050, L501.4021, L100.0100, L500.2500, L501.2450 #### [facility] Laboratory [address] [place], [address] Platelets (Bld) [#/Vol] 202 10*3/uL Normal 150-450 [facility] Comment on above: Performed By: #### L 500.4050, L501.4021, L100.0100, L500.2500, L501.2450 #### [facility] Laboratory [address] [place], [address] RBC (Bld) [#/Vol] 5.13 10*6/uL Normal 4.6-6.2 [facility] Comment on above: Performed By: #### L 500.4050, L501.4021, L100.0100, L500.2500, L501.2450 #### [facility] Laboratory [address] [place], [address] RDW SD 41.8 fl Normal 35.1-43.9 [facility] Comment on above: Performed By: #### L 500.4050, L501.4021, L100.0100, L500.2500, L501.2450 #### [facility] Laboratory [address] [place], [address] WBC (Bld) [#/Vol] 11.7 10*3/uL High 4.4-11.0 [facility] Comment on above: Performed By: #### L 500.4050, L501.4021, L100.0100, L500.2500, L501.2450 #### [facility] Laboratory [address] [place], [address] Carbon dioxide, total [Moles /volume] in Central venous bloodOrdered By: Prakash Archibald on 05-14-2025 CO2 [Moles/Vol] 19.7 mmol/L Low 21.0-32.0 [facility] Chest 1 View (Portable)on Chest 1 View (Portable) [facility] Imaging Services [address] [place], [place] [id number] Chest 1 View (Portable) MR#: [id number] Acct: [id number] Name: SALTY IQBAL Rep #: [id number] : 1955 M 69 From: Mikhail Cortez MD PCP: Dr. Shan Shelton DO Status: REG ER Study: Chest 1 View (Portable) Date of Exam: 05/14/25 Exam# [id number] Ordering Dr: Prakash Archibald MD PROCEDURE: CHEST 1 VIEW (PORTABLE) 05/14/2025 REASON FOR EXAM: CHEST PAIN TECHNIQUE: Frontal view of the chest. COMPARISON: 08/11/2021. FINDINGS: The heart is normal in size. The lungs are clear. No acute osseous abnormalities. RAD/Chest 1 View (Portable) IMPRESSION: No Acute Findings. Reading Location: [id number] CC: Dr. Shan Shelton DO; Dr. Prakash Archibald MD Chief Crna: Signed Normal [facility] Chloride assayOrdered By: Morales Archibald on 05-14-2025 Chloride [Moles/Vol] 105 mmol/L 98-108 [facility] Comprehensive Metabolic Prof ilon 05-14-2025 Albumin [Mass/Vol] 4.3 g/dL Normal 3.4-4.8 [facility] Comment on above: Performed By: #### L 499.0043 #### [facility] Laboratory [address] [place], [place], [id number] Albumin/Globulin [Mass ratio] 1.3 {ratio} Normal 0.9-2.4 [facility] Comment on above: Performed By: #### L 499.0043 #### [facility] Laboratory [address] [place], [address] ALK PHOS 66 U/L Normal 40-129 [facility] Comment on above: Performed By: #### L 499.0043 #### [facility] Laboratory [address] [place], [address] ALT [Catalytic activity/Vol] 30 U/L Normal <=46 [facility] Comment on above: Result Comment: Hemo lysis present, Results??could be affected. ?? Performed By: #### L 499.0043 #### [facility] Laboratory [address] [place], [address] AST [Catalytic activity/Vol] 34 U/L Normal <=37 [facility] Comment on above: Result Comment: Hemo lysis present, Results??could be affected. ?? Performed By: #### L 499.0043 #### [facility] Laboratory [address] [place], [address] Bilirubin [Mass/Vol] 0.49 mg/dL Normal 0.00-1.30 [facility] Comment on above: Performed By: #### L 499.0043 #### [facility] Laboratory [address] [place], [address] Globulin (S) [Mass/Vol] 3.3 g/dL Normal 2.2-4.2 [facility] Comment on above: Performed By: #### L 499.0043 #### [facility] Laboratory [address] [place], [address] T PROT 7.6 g/dL Normal 5.9-8.4 [facility] Comment on above: Performed By: #### L 499.0043 #### [facility] Laboratory [address] [place], [address] Electrocardiogram reportOrde red By: Aaron Bledsoe on 05-14-2025 EKG study [facility] Cardiovascular Services [address] [place] [address] 12 Lead EKG 05/14/25 1531 MR#: [id number] Acct: [id number] Name: SALTY IQBAL Rep #:[id number] : 1955 69 From: Aaron syed MD Attending Dr: Status: DEP E R Ordering Dr: Prakash Archibald MD Date: 05/14 Location: ED Sex: M C Admitted: Test Reason : indigestion Blood Pressure : */* mmHG Vent. Rate : 78 BPM Atrial Rate : 78 BPM P-R Int : 166 ms QRS Dur : 78 ms QT Int : 382 ms P-R-T Axes : 37 6 31 degrees QTcB Int : 435 ms Normal sinus rhythm Normal ECG Confirmed by Aaron Bledsoe ([id number]), video tape editor JUAN DEGROOT ([id number]) on 55:54:23 AM Referred By: Confirmed By: Aaron Bledsoe 05/16/25 0554 Date _ Aaron Bledsoe MD CC: Dr. Shan Shelton DO; Dr. Prakash Archibald MD ~ Signed [facility] Other Emergency Department Summary on 05-14-2025 Emergency Department Summary [facility] Medical Records Department [address] [place] [address] Emergency Department Summary 05/14/25 MR#: [id number] Acct: [id number] Name: SALTY IQBAL Rep #: [id number] : 1955 69 From: Prakash Archibald MD PCP: Dr. Shan Shelton DO Status:REG ER Location: ED HPI History of Present Illness Chief Complaint: Abd Pain Detail of Chief Complaint: Discomfort upper abdomen that migrated to the chest with urge to defecate Informant: patient and spouse/S.O. Onset/Context/Timalicia g Onset: Today (Approximately 1330) Context: Sudden Onset Timing: Intermittent Quality: Discomfort similar to [facility] 18 years ago Location: Upper abdomen and chest bilaterally Current Severity: Gone Maximum Severity: Mild Worsened by: Nothing Relieved by: 7 minutes after taking a nitroglycerin tablet Associated Symptoms Associated Symptoms: Urge to defecate, nausea and vomiting and diaphoresis Narrative Narrative: Patient is 69-year-old male. He has history of coronary disease. He has 2 stents placed June 2007. He does have history of hypertension, dyslipidemia and prediabetes. He had lunch at 11:30 AM. He had a omelette on bread. made this for him. He states he was under a tree on his cell phone when he developed discomfort in his upper abdomen that migrated towards the chest and had urge to defecate. He went to the restroom. He states he had a loose bowel movement. The discomfort did not get any better. He asked his to get blood pressure cuff and measure his blood pressure. It was not elevated. He then became diaphoretic and went into the house because he had episode of emesis. He became quite diaphoretic. He states this reminded him of the symptoms he had when he was diagnosed with [facility] 18 years ago. He asked his to get him a nitro. 7 minutes after taking the nitro his discomfort was alleviated. Prior similar symptoms: Yes ([place] 18 years ago) Recent Illness/Hospitaliza tion: No PFSH [facility] Medical History Wears hearing aid Loss of hearing Wears glasses Depression History of kidney stones High cholesterol Diverticulosis History of diverticulitis Former smoker Hypertension Cardiology follow-up encounter History of stress test Personal history of colonic polyps Obesity Erectile dysfunction GERD (gastroesophageal reflux disease) Atherosclerosis of coronary artery of [place] heart without angina pectoris Essential (primary) hypertension Dyslipidemia Home Medications ???Medication ???Instructions ???Recorded ???Last Taken ???Type aspirin 81 mg tablet,delayed 81 mg PO DAILY 01/11/19 Unknown Hi story release (Adult Low Dose Aspirin) multivitamin 1 tab PO DAILY 01/11/19 Unknown Hi story pantoprazole 40 mg tablet,delayed 40 mg PO QAM 30 days #30 tabs 07/31/24 05:30 History release sertraline 50 mg tablet 50 mg PO DAILY 30 days #30 tabs 07/31/24 05:30 History omega-3 fatty acids 1,000 mg 2,000 mg PO QHS 01/20/21 Unknown H istory capsule (Fish Oil Concentrate) nitroglycerin 0.4 mg sublingual 0.4 mg sublingual Q5-15M PRN 02/05 Unknown Rx tablet Cardiac/Chest Pain 30 days #25 tab s coenzyme Q10 50 mg capsule (Co 50 mg PO QDAY 06/07/24 Unknown His tory Q-10) trazodone 100 mg tablet 100 mg PO QHS 03/21/25 Unknown His tory lisinopril 5 mg tablet 5 mg PO DAILY #90 tabs 04/16/25 Un known Rx ezetimibe 10 mg-simvastatin 20 mg See Rx Instructions .Route Unknown Rx tablet .COMPLEX #90 tabs metoprolol tartrate 25 mg tablet 25 mg PO BID #180 tabs 05/09/25 Un known Rx Allergy/AdvReac Type Severity Reaction Status Date / Time Penicillins Allergy Anaphylaxis Verified 05/14/25 15:19 atorvastatin (From Lipitor) AdvReac myalgia Verified 05/14/25 15:19 cefaclor (From Ceclor) AdvReac Unknown Verified 05/14/25 15:19 Opioids - Morphine Analogues AdvReac bradycardia Verified 05/14/25 15:19 tetracycline AdvReac Unknown Verified 05/14/25 15:19 Family History Brother Heart disease Myocardial infarction, Onset Age: 46 from [place] CAD (coronary artery disease) STENTS Colon polyps Brother Heart disease Myocardial infarction, Onset Age: 50 CAD (coronary artery disease) CABG Colon polyps Father Cancer Mother CAD (coronary artery disease) CABGx x 3 Colon polyps Other Atherosclerosis of coronary artery of [place] heart without angina pectoris Dyslipidemia Essential (primary) hypertension History of coronary artery stent placement Surgical History History of cardiac catheterization Hx of colonoscopy History of left heart catheterization (10/03/07) History of herniorrhaphy History of coronary artery stent (more content not included)... Normal [facility] Eosinophil percentageOrdered By: Prakash Archibald on 05-14-2025 Eosinophils/100 WBC (Bld) 1.6 % 0-5 [facility] Erythrocyte distribution wid th ratioOrdered By: Prakash Archibald on 05-14-2025 Erythrocyte distribution width (RBC) [Ratio] 12.6 % 11.6-14.6 [facility] Erythrocyte distribution wid th standard deviationOrdered By: Prakashwilbert Archibald on 05-14-2025 Erythrocyte distribution width (RBC) [Ratio] 41.8 fl 35.1-43.9 [facility] Glomerular filtration rate ( GFR) estimation/1.73 sq m using serum, plasma, or whole bOrdered By: Prakash Archibald on 05-14-2025 GFR/1.73 sq M.predicted among non-blacks MDRD (S/P/Bld) [Vol rate/Area] 78 mL/min/{1.73_m2} >60 [facility] Comment on above: mL/min/1.73m2 CKD-EP I Creatinine Equation (2020) Hematocrit Auto (Bld) [Volum e fraction]Ordered By: Prakashwilbert Archibald on 05-14-2025 Hematocrit (Bld) [Volume fraction] 46.2 % 40-54 [facility] Hemoglobin measurementOrdere d By: Prakashwilbert Archibald on 05-14-2025 Hemoglobin (Bld) [Mass/Vol] 16.2 g/dL 13.0-16.5 [facility] Immature granulocytes/100 WB C Auto (Bld)Ordered By: Prakashwilbert Archibald on 05-14-2025 Immature granulocytes/100 WBC (Bld) 0.300 % 0.0-0.9 [facility] Comment on above: IG% - Immature Granu locytes (promyelocytes, myelocytes and metamyelocytes) > 1% indicates that a LEFT SHIFT is Present. L501.4021on 05-14-2025 Trop T High Sen 8 ng/L Normal <=22 [facility] Comment on above: Result Comment: Hemo lysis present, Results??could be affected. ?? Performed By: #### L 499.0043 #### [facility] Laboratory [address] [place], [address] Laboratory - Chemistry and C hemistry - challengeOrdered By: Prakash Archibald on 05-14-2025 AST [Catalytic activity/Vol] 34 U/L <38 [facility] Comment on above: Hemolysis present, R esults could be affected. Lipaseon 05-14-2025 Lipase [Catalytic activity/Vol] 27 U/L Normal 13-75 [facility] Comment on above: Result Comment: Marsha pisano note: LIPASE revised reference range effective 22. New Lipase methodology. Expected to produce lower values than the previous assay method. NEW Reference Range: 13 - 75 U/L Performed By: #### L 500.4050, L501.4021, L100.0100, L500.2500, L501.2450 #### [facility] Laboratory [facility] [place], [address] Lipase measurementOrdered By : Prakash Archibald on 05-14-2025 Lipase [Catalytic activity/Vol] 27 U/L 13-75 [facility] Comment on above: Please note:LIPASE r evised reference range effective 22. New Lipase methodology. Expected to produce lower values than the previous assay method. NEW Reference Range: 13 - 75 U/L MCV (mean corpuscular volume ) determinationOrdered By: Prakash Archibald on 05-14-2025 MCV (RBC) [Entitic vol] 90.1 fL 80-94 [facility] Mean corpuscular hemoglobin (MCH) determinationOrdered By: Prakash Archibald on 05-14-2025 MCH (RBC) [Entitic mass] 31.6 pg 27.0-32.0 [facility] Mean corpuscular hemoglobin concentration (MCHC) determinationOrdered By: Prakash Archibald on 05-14-2025 MCHC (RBC) [Mass/Vol] 35.1 g/dL 32-36 [facility] Mean platelet volume determi nationOrdered By: Prakash Archibald on 05-14-2025 Platelet mean volume (Bld) [Entitic vol] 9.4 fL 6.2-12.0 [facility] Monocyte percentageOrdered B y: Prakash Archibald on 05-14-2025 Monocytes/100 WBC (Bld) 10.0 % 0-10 [facility] Neutrophil percentageOrdered By: Prakash Archibald on 05-14-2025 Neutrophils/100 WBC (Bld) 76.2 % High 47-70 [facility] Nucleated red blood cell per centageOrdered By: Prakash Archibald on 05-14-2025 Nucleated RBC/100 WBC (Bld) [Ratio] 0 % 0-5 [facility] Platelet countOrdered By: [facility] Archibald on 05-14-2025 Platelets (Bld) [#/Vol] 202 10*3/uL 150-450 [facility] Potassium measurement (mass/ volume)Ordered By: Prakash Archibald on 05-14-2025 Potassium (Unsp spec) [Mass/Vol] 4.8 mmol/L 3.3-5.1 [facility] Comment on above: Hemolysis present, R esults could be affected. RBC Auto (Bld) [#/Vol]Ordere d By: [facility] RBC (Bld) [#/Vol] 5.13 10*6/uL 4.6-6.2 [facility] Serum creatinine measurement (mass/volume)Ordered By: Prakash Archibald on 05-14-2025 Creatinine [Mass/Vol] 1.03 mg/dL 0.70-1.20 [facility] Serum globulin measurementOr dered By: Prakashwilbert Archibald on 05-14-2025 Globulin (S) [Mass/Vol] 3.3 g/dL 2.2-4.2 [facility] Serum glucose measurement (m ass/volume)Ordered By: Prakash Archibald on 05-14-2025 Glucose [Mass/Vol] 123 mg/dL High 70-99 [facility] Serum or plasma alanine chew otransferase (ALT) measurementOrdered By: [facility] on 05-14-2025 ALT [Catalytic activity/Vol] 30 U/L <47 [facility] Comment on above: Hemolysis present, R esults could be affected. Serum or plasma albumin katia urement (mass/volume)Ordered By: [facility] on 05-14-2025 Albumin [Mass/Vol] 4.3 g/dL 3.4-4.8 [facility] Serum or plasma albumin/glob ulin mass ratioOrdered By: [facility] on 05-14-2025 Albumin/Globulin [Mass ratio] 1.3 {ratio} 0.9-2.4 [facility] Serum or plasma alkaline nirav sphatase measurementOrdered By: [facility] on 05-14-2025 ALP [Catalytic activity/Vol] 66 U/L 40-129 [facility] Serum or plasma calcium katia urement (mass/volume)Ordered By: Prakash Archibald on 05-14-2025 Calcium [Mass/Vol] 9.5 mg/dL 7.6-11.0 [facility] Serum or plasma urea nitroge n measurement (mass/volume)Ordered By: Prakash Archibald on 05-14-2025 Urea nitrogen [Mass/Vol] 19 mg/dL 4-19 [facility] Sodium levelOrdered By: Prakash Archibald on 05-14-2025 Sodium [Moles/Vol] 138 mmol/L 133-145 [facility] Total proteinOrdered By: Prakashwilbert Archibald on 05-14-2025 Protein [Mass/Vol] 7.6 g/dL 5.9-8.4 [facility] Troponin T HS 2 HRon 025 Trop T High Sen 7 ng/L Normal <=22 [facility] Comment on above: Performed By: #### L 499.0043 #### [facility] Laboratory [address] [place], [place], [id number] (448) Troponin T HS 4 HRon 025 Trop T High Sen < 6 Normal <=22 [facility] Comment on above: Performed By: #### L 499.0043 #### [facility] Laboratory [address] [facility] [place], [place], [id number] (571) Troponin T.cardiac [Mass/vol ume] in Serum or Plasma by High sensitivity methodOrdered By: Prakash Archibald on 05-14-2025 Troponin T.cardiac High sensitivity method [Mass/Vol] < 6 ng/L <22 [facility] Troponin T.cardiac High sensitivity method [Mass/Vol] 7 ng/L <22 [facility] Troponin T.cardiac High sensitivity method [Mass/Vol] 8 ng/L <22 [facility] Comment on above: Hemolysis present, R esults could be affected. White blood cell (WBC) count Ordered By: Prakash Archibald on 05-14-2025 WBC (Bld) [#/Vol] 11.7 10*3/uL High 4.4-11.0 [facility] Hemoglobin A1con 04-05-2025 HbA1c (Bld) [Mass fraction] 6.0 % High <=5.6 [facility] Comment on above: Result Comment: Norm al < 5.7 % Prediabetic 5.7 - 6.4 % Diabetic >or= 6.5 % Please note range changes. Performed By: #### L 501.9985 #### [facility] Laboratory [address] [place], [address] Hemoglobin A1c percentageOrd ered By: Shan Shelton on 04-05-2025 HbA1c (Bld) [Mass fraction] 6.0 % High <5.7 [facility] Comment on above: Normal < 5.7 % Predi abetic 5.7 - 6.4 % Diabetic >or= 6.5 % Please note range changes. Cardiology Visit Reporton Cardiology Visit Report [facility] [address] [place] [address] OFFICE VISIT Date of Service: 03/21/25 MR#: [id number] Acct: [id number] Name: SALTY IQBAL Rep #: [id number] : 1955 Provider: Dr. Jose Lane MD Age/Sex: 69/M Location: [facility] Status: Signed HPI HPI History of [...] Monitor Intake Visit Reasons: 1 Y FU Metabolic Specialist Required: No Accompanied by: Self Is patient [...] reflux disease) Atherosclerosis of coronary artery of [place] heart without angina pectoris Essential (primary) hypertension Dyslipidemia Surgical History History of cardiac catheterization Hx of colonoscopy History of left heart catheterization (10/03/07) History of herniorrhaphy History of coronary artery stent placement (07/07/07) Family History Brother Heart disease Myocardial infarction, Onset Age: 46 from [place] CAD (coronary artery disease) STENTS Colon polyps Brother Heart disease Myocardial infarction, Onset Age: 50 CAD (coronary artery disease) CABG Colon polyps Father Cancer Mother CAD (coronary artery disease) CABGx x 3 Colon polyps Other Atherosclerosis of coronary artery of [place] heart without angina pectoris Dyslipidemia Essential (prim (more content not included)... Normal [facility] Hemoglobin A1con 08-28-2024 HbA1c (Bld) [Mass fraction] 6.0 % High 3.8-5.6 [facility] Comment on above: Order Comment: ADD O N PER DR. SHELTON Result Comment: Norm al < 5.7 % Prediabetic 5.7 - 6.4 % Diabetic >or= 6.5 % Please note range changes. Performed By: #### L 500.4050, L500.4100, L100.0100, L501.9985 #### [facility] Laboratory [address] [place], [address] CBC W/Diff, Automatedon 01-0 6-2024 Absolute Lymph 1.52 X10 3/uL Normal 0.83-4.51 [facility] Comment on above: Performed By: #### L 500.4050, L500.4100, L100.0100, L501.9985 #### [facility] Laboratory [address] [place], [address] Absolute Neut 6.0 X10 3/uL Normal 2.0-7.7 [facility] Comment on above: Performed By: #### L 500.4050, L500.4100, L100.0100, L501.9985 #### [facility] Laboratory [address] [place], [address] Basophils/100 WBC (Bld) 0.6 % Normal 0-1 [facility] Comment on above: Performed By: #### L 500.4050, L500.4100, L100.0100, L501.9985 #### [facility] Laboratory [address] [place], [address] Eosinophils/100 WBC (Bld) 5.1 % High 0-5 [facility] Comment on above: Performed By: #### L 500.4050, L500.4100, L100.0100, L501.9985 #### [facility] Laboratory [address] [place], [address] Erythrocyte distribution width (RBC) [Ratio] 12.6 % Normal 11.6-14.6 [facility] Comment on above: Performed By: #### L 500.4050, L500.4100, L100.0100, L501.9985 #### [facility] Laboratory [address] [place], [address] Hematocrit (Bld) [Volume fraction] 46.0 % Normal 40-54 [facility] Comment on above: Performed By: #### L 500.4050, L500.4100, L100.0100, L501.9985 #### [facility] Laboratory [address] [place], [address] Hemoglobin (Bld) [Mass/Vol] 15.3 g/dL Normal 13.0-16.5 [facility] [facility] Comment on above: Performed By: #### L 500.4050, L500.4100, L100.0100, L501.9985 #### [facility] [address] [place], [address] IG% 0.400 Normal 0.0-0.9 [facility] Comment on above: Result Comment: IG% - Immature Granulocytes (promyelocytes, myelocytes and metamyelocytes) > 1% indicates that a LEFT SHIFT is Present. Performed By: #### L 500.4050, L500.4100, L100.0100, L501.9985 #### [facility] [address] [place], [address] Lymphocytes/100 WBC (Bld) 16.9 % Low 19-41 [facility] Comment on above: Performed By: #### L 500.4050, L500.4100, L100.0100, L501.9985 #### [facility] [address] [place], [address] MCH (RBC) [Entitic mass] 30.6 pg Normal 27.0-32.0 [facility] Comment on above: Performed By: #### L 500.4050, L500.4100, L100.0100, L501.9985 #### [facility] [address] [place], [address] MCHC (RBC) [Mass/Vol] 33.3 g/dL Normal 32-36 [facility] Comment on above: Performed By: #### L 500.4050, L500.4100, L100.0100, L501.9985 #### [facility] [address] [place], [address] MCV (RBC) [Entitic vol] 92.0 fL Normal 80-94 [facility] Comment on above: Performed By: #### L 500.4050, L500.4100, L100.0100, L501.9985 #### [facility] [address] [place], [address] Monocytes/100 WBC (Bld) 10.9 % High 0-10 [facility] Comment on above: Performed By: #### L 500.4050, L500.4100, L100.0100, L501.9985 #### [facility] [address] [place], [address] Neutrophils/100 WBC (Bld) 66.1 % Normal 47-70 [facility] Comment on above: Performed By: #### L 500.4050, L500.4100, L100.0100, L501.9985 #### [facility] [address] [place], [address] Nucleated RBC (Bld) [#/Vol] 0 10*3/uL Normal 0-5 [facility] Comment on above: Performed By: #### L 500.4050, L500.4100, L100.0100, L501.9985 #### [facility] [address] [place], [address] Platelet mean volume (Bld) [Entitic vol] 10.0 fL Normal 6.2-12.0 [facility] Comment on above: Performed By: #### L 500.4050, L500.4100, L100.0100, L501.9985 #### [facility] [address] [place], [address] Platelets (Bld) [#/Vol] 191 10*3/uL Normal 150-450 [facility] Comment on above: Performed By: #### L 500.4050, L500.4100, L100.0100, L501.9985 #### [facility] [address] [place], [address] RBC (Bld) [#/Vol] 5.00 10*6/uL Normal 4.6-6.2 [facility] Comment on above: Performed By: #### L 500.4050, L500.4100, L100.0100, L501.9985 #### [facility] [address] [place], [address] RDW SD 42.7 fl Normal 35.1-43.9 [facility] Comment on above: Performed By: #### L 500.4050, L500.4100, L100.0100, L501.9985 #### [facility] [address] [place], [address] WBC (Bld) [#/Vol] 9.0 10*3/uL Normal 4.4-11.0 [facility] Comment on above: Performed By: #### L 500.4050, L500.4100, L100.0100, L501.9985 #### [facility] [address] [place], [address] [facility] Albumin [Mass/Vol] 3.7 g/dL Normal 3.2-5.0 [facility] Comment on above: Performed By: #### L 500.4050, L500.4100, L100.0100, L501.9985 #### [facility] [address] [place], [address] Albumin/Globulin [Mass ratio] 1.0 {ratio} Normal 0.9-2.4 [facility] Comment on above: Performed By: #### L 500.4050, L500.4100, L100.0100, L501.9985 #### [facility] [address] [place], [address] ALK P 65 U/L Normal 45-117 [facility] Comment on above: Performed By: #### L 500.4050, L500.4100, L100.0100, L501.9985 #### [facility] [address] [place], [address] ALT [Catalytic activity/Vol] 39 U/L Normal 16-61 [facility] Comment on above: Performed By: #### L 500.4050, L500.4100, L100.0100, L501.9985 #### [facility] [address] [place], [address] AST [Catalytic activity/Vol] 20 U/L Normal 15-37 [facility] Comment on above: Performed By: #### L 500.4050, L500.4100, L100.0100, L501.9985 #### [facility] [address] [place], [address] Bilirubin [Mass/Vol] 0.30 mg/dL Normal 0.20-1.00 [facility] Comment on above: Result Comment: For patients on eltrombopag therapy, use of Dimension Laie TBIL is not recommended. Performed By: #### L 500.4050, L500.4100, L100.0100, L501.9985 #### [facility] [address] [place], [address] BUN/CRE 26.5 RATIO High 10-20 [facility] Comment on above: Performed By: #### L 500.4050, L500.4100, L100.0100, L501.9985 #### [facility] [address] [place], [address] CA,Total 9.6 mg/dL Normal 8.5-10.1 [facility] Comment on above: Performed By: #### L 500.4050, L500.4100, L100.0100, L501.9985 #### [facility] [address] [place], [address] Chloride [Moles/Vol] 107 mmol/L Normal 98-107 [facility] Comment on above: Performed By: #### L 500.4050, L500.4100, L100.0100, L501.9985 #### [facility] [address] [place], [address] CO2 [Moles/Vol] 26.0 mmol/L Normal 21.0-32.0 [facility] Comment on above: Performed By: #### L 500.4050, L500.4100, L100.0100, L501.9985 #### [facility] [address] [place], [address] Creatinine [Mass/Vol] 0.83 mg/dL Normal 0.70-1.30 [facility] Comment on above: Result Comment: The validity of the calculated GFR GFRAA in patients over 70 years has not been determined. Clinical correlation is essential. Performed By: #### L 500.4050, L500.4100, L100.0100, L501.9985 #### [facility] [address] [place], [address] EST GFR - AA 118 mL/min Normal >60 [facility] Comment on above: Result Comment: Afri can [place] GFR Calc Performed By: #### L 500.4050, L500.4100, L100.0100, L501.9985 #### [facility] [address] [place], [address] GAP 4 Low 5-15 [facility] Comment on above: Performed By: #### L 500.4050, L500.4100, L100.0100, L501.9985 #### [facility] [address] [place], [address] GFR/1.73 sq M.predicted among non-blacks MDRD (S/P/Bld) [Vol rate/Area] 97 mL/min/{1.73_m2} Normal >60 [facility] Comment on above: Result Comment: Non- GFR Calc Performed By: #### L 500.4050, L500.4100, L100.0100, L501.9985 #### [facility] [address] [place], [address] Globulin (S) [Mass/Vol] 3.6 g/dL Normal 2.2-4.2 [facility] Comment on above: Performed By: #### L 500.4050, L500.4100, L100.0100, L501.9985 #### [facility] [address] [place], [address] Glucose [Mass/Vol] 122 mg/dL High 74-106 [facility] Comment on above: Result Comment: Fast ing Glucose result from 100 to 125 mg/dL suggests IMPAIRED HOMEOSTASIS per A.D.A. criteria. Performed By: #### L 500.4050, L500.4100, L100.0100, L501.9985 #### [facility] [address] [place], [address] Potassium [Moles/Vol] 4.3 mmol/L Normal 3.5-5.1 [facility] Comment on above: Performed By: #### L 500.4050, L500.4100, L100.0100, L501.9985 #### [facility] [address] [place], [address] Sodium [Moles/Vol] 137 mmol/L Normal 136-145 [facility] Comment on above: Performed By: #### L 500.4050, L500.4100, L100.0100, L501.9985 #### [facility] [address] [place], [address] T PROT 7.3 g/dL Normal 6.4-8.2 [facility] Comment on above: Performed By: #### L 500.4050, L500.4100, L100.0100, L501.9985 #### [facility] [address] [place], [address] Urea nitrogen [Mass/Vol] 22 mg/dL High 7-18 [facility] Comment on above: Performed By: #### L 500.4050, L500.4100, L100.0100, L501.9985 #### [facility] [address] [place], [address] Lipid Profileon 08-27-2024 Cholesterol [Mass/Vol] 137 mg/dL Normal 200 [facility] Comment on above: Result Comment: <200 mg/dL Desirable 200-240 mg/dL Borderline >240 mg/dL High Risk Performed By: #### L 500.4050, L500.4100, L100.0100, L501.9985 #### [facility] [address] [place], [address] Cholesterol in HDL [Mass/Vol] 41 mg/dL Normal [facility] Comment on above: Result Comment: The drugs N-Acetylcysteine and Metamizole may falsely depress this assay. Reference Range HDL <40 mg/dL Low HDL Cholesterol HDL >or= 60 mg/dL High HDL Cholesterol Performed By: #### L 500.4050, L500.4100, L100.0100, L501.9985 #### [facility] [address] [place], [address] Cholesterol in LDL [Mass/Vol] 58 mg/dL Normal 0-130 [facility] Comment on above: Performed By: #### L 500.4050, L500.4100, L100.0100, L501.9985 #### [facility] [address] [place], [address] Cholesterol in VLDL [Mass/Vol] 38 mg/dL Normal 5-40 [facility] Comment on above: Performed By: #### L 500.4050, L500.4100, L100.0100, L501.9985 #### [facility] [address] [place], [address] Triglyceride [Mass/Vol] 189 mg/dL Normal [facility] Comment on above: Result Comment: The drugs N-Acetylcysteine and Metamizole may falsely depress this assay. Serum Triglycerides Reference Interval Normal <150 mg/dL Borderline high 150 - 199 mg/dL High 200 - 499 mg/dL Very High > or = 500 mg/dL Performed By: #### L 500.4050, L500.4100, L100.0100, L501.9985 #### [facility] [address] [place], [place], [address] Colonoscopy Reporton 024 Colonoscopy Report [facility] Medical Records Department [address] [place] [address] Colonoscopy Report MR#: [id number] Acct: [id number] Name: SALTY IQBAL Rep #: [id number] : 1955 68 From: Giovanny Olea MD PCP: Dr. Shan Shelton, DO Status:[facility] Patient Name: Salty Iqbal Procedure Date: 07/31/2024 [...] screening purposes. Procedure Code(s): --- Professional --- 63962, Colonoscopy, flexible; diagnostic, including collection of specimen(s) by brushing or washing, when performed (separate procedure) Diagnosis Code(s): --- Professional --- Z86.010, Personal history of colonic polyps CPT copyright 2021 [employer]. All rights reserved. The codes documented in this report are preliminary and upon sql server developer review may be revised to meet current compliance requirements. Giovanny Olea MD 07/31/2024 9:11:44 AM This report has been signed electronically. Number of Addenda: 0 Note Initiated On: 07/31/2024 8:32 AM 07/31/24 0911 Date Giovanny Olea MD Cosigner Signature: Date (if indicated) CC: Dr. Giovanny Olea MD; Dr. Shan Shelton DO Date Dictated: 07/31/24831 Date Transcribed: Chief Crna: SRINATH Signed [facility] MR/POSTOP.ANEon 07-31-2024 MR/POSTOP.[facility] Medical Records Department [address] [place] [address] Anesthesia Postop Eval I 07/31/241029 MR#: [id number] Acct: [id number] Name: SALTY IQBAL Rep #: [id number] : 1955 68 From: Shane Bello MD PCP: Dr. Shan Shelton, Status:[facility] Y Race: C Location: Anesthesia: Postop Eval I Current Vital Signs [...] Eval 1 completed: Yes 07/31/241034 Date Shane Bello MD Cosigner Signature: Date CC: Signed [facility] [id number] 07-31-2024 MR/POST[address] Medical Records Department [address] [place] [address] Anesthesia Postop Eval II 07/31/241034 MR#: [id number] Acct: [id number] Name: SALTY IQBAL Rep #: [id number] : 1955 68 From: Shane Bello MD PCP: Dr. Shan Shelton, DO Status:[facility] Y Race: C Location: EN Anesthesia Postop [...] MD Cosigner Signature: Date CC: Signed Normal [facility] Absolute lymphocyte countOrd ered By: Enriqueta Neal on 09-16-2023 Lymphocytes Auto (Unsp spec) [#/Vol] 1.67 10*3/uL 0.83-4.51 [facility] Automated lymphocyte count a s percentage of total leukocytesOrdered By: Enriqueta Neal on 09-16-2023 Lymphocytes/100 WBC Auto (Unsp spec) 20.9 % 19-41 [facility] Basophil percentageOrdered B y: Enriqueta Neal on 09-16-2023 Basophils/100 WBC (Bld) 0.6 % 0-1 [facility] Eosinophils/100 WBC (Bld) 5.9 % 0-5 [facility] Hemoglobin (Bld) [Mass/Vol] 15.1 g/dL 13.0-16.5 [facility] Monocytes/100 WBC (Bld) 10.0 % 0-10 [facility] Neutrophils (Bld) [#/Vol] 5.0 10*3/uL 2.0-7.7 [facility] Neutrophils/100 WBC (Bld) 62.2 % 47-70 [facility] WBC (Bld) [#/Vol] 8.0 10*3/uL 4.4-11.0 [facility] Bilirubin [Mass/Vol] 0.40 mg/dL 0.20-1.00 [facility] Comment on above: For patients on eltr ombopag therapy, use of Dimension Laie TBIL is not recommended. Chloride [Moles/Vol] 107 mmol/L 98-107 [facility] Cholesterol [Mass/Vol] 138 mg/dL <200 [facility] Comment on above: <200 mg/dL Desirable 200-240 mg/dL Borderline >240 mg/dL High Risk Glucose [Mass/Vol] 114 mg/dL 74-106 [facility] Comment on above: Fasting Glucose resu lt from 100 to 125 mg/dL suggests IMPAIRED HOMEOSTASIS per A.D.A. criteria. Potassium [Moles/Vol] 4.2 mmol/L 3.5-5.1 [facility] Protein [Mass/Vol] 7.3 g/dL 6.4-8.2 [facility] Sodium [Moles/Vol] 139 mmol/L 136-145 [facility] Triglyceride [Mass/Vol] 169 mg/dL <199 [facility] Comment on above: The drugs N-Acetylcy steine and Metamizole may falsely depress this assay.Serum Triglycerides Reference Interval Normal <150 mg/dL Borderline high 150 - 199 mg/dL High 200 - 499 mg/dL Very High > or = 500 mg/dL Determination of erythrocyte mean corpuscular volume (MCV)Ordered By: Enriqueta Neal on 09-16-2023 MCV (RBC) [Entitic vol] 90.2 fL 80-94 [facility] Direct bilirubinOrdered By: Enriqueta Neal on 09-16-2023 Bilirubin.direct [Mass/Vol] 0.16 mg/dL 0.00-0.30 [facility] Erythrocyte distribution wid th ratioOrdered By: Enriqueta Neal on 09-16-2023 Erythrocyte distribution width (RBC) [Ratio] 12.0 % 11.6-14.6 [facility] Erythrocyte distribution wid th standard deviationOrdered By: Enriqueta Neal on 09-16-2023 Erythrocyte distribution width (RBC) [Entitic vol] 39.5 fL 35.1-43.9 [facility] Hematocrit Auto (Bld) [Volum e fraction]Ordered By: Enriqueta Neal on 09-16-2023 Hematocrit (Bld) [Volume fraction] 45.1 % 40-54 [facility] High density lipoprotein (HD L) measurementOrdered By: Enriqueta Neal on 09-16-2023 Cholesterol in HDL (Body fld) [Mass/Vol] 39 mg/dL >40 [facility] Comment on above: The drugs N-Acetylcy steine and Metamizole may falsely depress this assay. Reference Range HDL <40 mg/dL Low HDL Cholesterol HDL >or= 60 mg/dL High HDL Cholesterol Immature granulocytes/100 WB C Auto (Bld)Ordered By: Enriqueta Neal on 09-16-2023 Immature granulocytes/100 WBC (Bld) 0.400 % 0.0-0.9 [facility] Comment on above: IG% - Immature Granu locytes (promyelocytes, myelocytes and metamyelocytes) > 1% indicates that a LEFT SHIFT is Present. Laboratory - Chemistry and C hemistry - challengeOrdered By: Enriqueta Neal on 09-16-2023 ALP [Catalytic activity/Vol] 66 U/L 45-117 [facility] ALT [Catalytic activity/Vol] 32 U/L 16-61 [facility] CO2 [Moles/Vol] 27.0 mmol/L 21.0-32.0 [facility] Globulin (S) [Mass/Vol] 3.5 g/dL 2.2-4.2 [facility] Urea nitrogen/Creatinine [Mass ratio] 23.6 mg/mg 10-20 [facility] - Hematology and Cell countsOrdered By: Enriqueta Neal on 09-16-2023 MCH (RBC) [Entitic mass] 30.2 pg 27.0-32.0 [facility] MCHC (RBC) [Mass/Vol] 33.5 g/dL 32-36 [facility] Nucleated RBC/100 WBC (Bld) [Ratio] 0 % 0-5 [facility] Platelets (Bld) [#/Vol] 178 10*3/uL 150-450 [facility] Low density lipoprotein (LDL ) cholesterol measurementOrdered By: Enriqueta Neal on 09-16-2023 Cholesterol in LDL (Body fld) [Moles/Vol] 65 mg/dL 0-130 [facility] No Panel InformationOrdered By: Enriqueta Neal on 09-16-2023 Estimated GFR (MDRD) Amer 98 mL/min >60 [facility] Comment on above: GFR Calc Estimated GFR (MDRD) Non-Af Amer 81 mL/min >60 [facility] Comment on above: Non- GFR Calc Platelet mean volume Socrates-Ec ker (Bld) [Entitic vol]Ordered By: Enriqueta Neal on 09-16-2023 Platelet mean volume (Bld) [Entitic vol] 9.6 fL 6.2-12.0 [facility] RBC Auto (Bld) [#/Vol]Ordere d By: Enriqueta Neal on 09-16-2023 RBC (Bld) [#/Vol] 5.00 10*6/uL 4.6-6.2 [facility] Screening prostate specific antigen (PSA) measurementOrdered By: Enriqueta Neal on 09-16-2023 Prostate specific Ag IA [Mass/Vol] 1.56 ng/mL 0.00-4.00 [facility] Comment on above: This test was perfor med using the TPSA assay method for the[facility] chemistry system. Values obtained with differentassay methods cannot be used interchangably.When changing PSA assays in the course of monitoring apatient, additional sequential testing should be carriedout to confirm baseline values. Serum or plasma calcium katia urement (mass/volume)Ordered By: Enriqueta Neal on 09-16-2023 Calcium [Mass/Vol] 9.1 mg/dL 8.5-10.1 [facility] Serum or plasma creatinine m easurement (mass/volume)Ordered By: Enriqueta Neal on 09-16-2023 Creatinine [Mass/Vol] 0.97 mg/dL 0.70-1.30 [facility] Comment on above: The validity of the calculated GFR & GFRAA in patients over 70 years has not been determined. Clinical correlation is essential. Serum or plasma urea nitroge n measurement (mass/volume)Ordered By: Enriqueta Neal on 09-16-2023 Urea nitrogen [Mass/Vol] 23 mg/dL 7-18 [facility] Thin prep Papanicolaou smear with manual screeningOrdered By: Enriqueta Neal on 09-16-2023 Thin prep Papanicolaou smear with manual screening 3.8 g/dL 3.2-5.0 [facility] Thin prep Papanicolaou smear with manual screening 15 U/L 15-37 [facility] Thin prep Papanicolaou smear with manual screening 5 5-15 [facility] Very low density lipoprotein (VLDL) cholesterol measurementOrdered By: Enriqueta Neal on 09-16-2023 Cholesterol in VLDL Calc [Moles/Vol] 34 mg/dL 5-40 [facility] Basophil percentageOrdered B y: Enriqueta Neal on 02-17-2023 Bilirubin [Mass/Vol] 0.50 mg/dL 0.20-1.00 [facility] Comment on above: For patients on eltr ombopag therapy, use of Dimension Laie TBIL is not recommended. Cholesterol [Mass/Vol] 132 mg/dL <200 [facility] Comment on above: <200 mg/dL Desirable 200-240 mg/dL Borderline >240 mg/dL High Risk Protein [Mass/Vol] 7.6 g/dL 6.4-8.2 [facility] Triglyceride [Mass/Vol] 188 mg/dL <199 [facility] Comment on above: The drugs N-Acetylcy steine and Metamizole may falsely depress this assay.Serum Triglycerides Reference Interval Normal <150 mg/dL Borderline high 150 - 199 mg/dL High 200 - 499 mg/dL Very High > or = 500 mg/dL Direct bilirubinOrdered By: Enriqueta Neal on 02-17-2023 Bilirubin.direct [Mass/Vol] 0.14 mg/dL 0.00-0.30 [facility] Laboratory - Chemistry and C hemistry - challengeOrdered By: Enriqueta Neal on 02-17-2023 ALP [Catalytic activity/Vol] 63 U/L 45-117 [facility] ALT [Catalytic activity/Vol] 32 U/L 16-61 [facility] Globulin (S) [Mass/Vol] 3.8 g/dL 2.2-4.2 [facility] Serum or plasma albumin katia urement (mass/volume)Ordered By: Enriqueta Neal on 02-17-2023 Albumin [Mass/Vol] 3.8 g/dL 3.2-5.0 [facility] Serum or plasma cholesterol in HDL measurement (mass/volume)Ordered By: Enriqueta Neal on 02-17-2023 Cholesterol in HDL [Mass/Vol] 40 mg/dL >40 [facility] Comment on above: The drugs N-Acetylcy steine and Metamizole may falsely depress this assay. Reference Range HDL <40 mg/dL Low HDL Cholesterol HDL >or= 60 mg/dL High HDL Cholesterol Serum or plasma cholesterol in VLDL measurement (mass/volume)Ordered By: Enriqueta Neal on 02-17-2023 Cholesterol in VLDL [Mass/Vol] 38 mg/dL 5-40 [facility] Serum or plasma low density lipoprotein (LDL) cholesterol measurement (mass/volume)Ordered By: Enriqueta Neal on 02-17-2023 Cholesterol in LDL [Mass/Vol] 54 mg/dL 0-130 [facility] Thin prep Papanicolaou smear with manual screeningOrdered By: Enriqueta Neal on 02-17-2023 Thin prep Papanicolaou smear with manual screening 20 U/L 15-37 [facility] Absolute lymphocyte counton 08-02-2022 Lymphocytes Auto (Unsp spec) [#/Vol] 1.44 10*3/uL 0.83-4.51 [facility] Work Phone: Basophil percentageon 2021 Basophils/100 WBC (Bld) 0.7 % 0-1 [facility] Work Phone: Chloride [Moles/Vol] 107 mmol/L 98-107 [facility] Work Phone: Eosinophils/100 WBC (Bld) 5.0 % 0-5 [facility] Work Phone: Glucose [Mass/Vol] 118 mg/dL 74-106 [facility] Work Phone: Comment on above: Fasting Glucose resu lt from 100 to 125 mg/dL suggests IMPAIRED HOMEOSTASIS per A.D.A. criteria. Neutrophils (Bld) [#/Vol] 7.1 10*3/uL 2.0-7.7 [facility] Work Phone: Neutrophils/100 WBC (Bld) 70.6 % 47-70 [facility] Work Phone: Potassium [Moles/Vol] 4.2 mmol/L 3.5-5.1 [facility] Work Phone: Sodium [Moles/Vol] 139 mmol/L 136-145 [facility] Work Phone: WBC (Bld) [#/Vol] 10.0 10*3/uL 4.4-11.0 [facility] Work Phone: Bilirubin Test strip Ql (U)o n 08-02-2022 Bilirubin Ql (U) Negative Negative [facility] Work Phone: Blood erythrocytes count (nu mber/volume)on 08-02-2022 RBC (Bld) [#/Vol] 4.90 10*6/uL 4.6-6.2 [facility] Work Phone: Blood hemoglobin measurement (mass/volume)on 08-02-2022 Hemoglobin (Bld) [Mass/Vol] 14.9 g/dL 13.0-16.5 [facility] Work Phone: Blood lymphocytes/100 leukoc yteson 08-02-2022 Lymphocytes/100 WBC (Bld) 14.4 % 19-41 [facility] Work Phone: Blood monocytes/100 leukocyt eson 08-02-2022 Monocytes/100 WBC (Bld) 8.8 % 0-10 [facility] Work Phone: Blood platelet mean volumeon 08-02-2022 Platelet mean volume (Bld) [Entitic vol] 9.1 fL 6.2-12.0 [facility] Work Phone: Determination of erythrocyte mean corpuscular volume (MCV)on 08-02-2022 MCV (RBC) [Entitic vol] 93.3 fL 80-94 [facility] Work Phone: Hematocrit Auto (Bld) [Volum e fraction]on 08-02-2022 Hematocrit (Bld) [Volume fraction] 45.7 % 40-54 [facility] Work Phone: Ketones Test strip Ql (U)on 08-02-2022 Ketones Ql (U) 5 mg/dl Negative [facility] Work Phone: Laboratory - Chemistry and C hemistry - challengeon 08-02-2022 CO2 [Moles/Vol] 27.0 mmol/L 21.0-32.0 [facility] Work Phone: Urea nitrogen/Creatinine [Mass ratio] 21.7 mg/mg 10-20 [facility] Work Phone: Laboratory - Hematology and Cell countson 08-02-2022 Erythrocyte distribution width (RBC) [Entitic vol] 41.1 fL 35.1-43.9 [facility] Work Phone: Erythrocyte distribution width (RBC) [Ratio] 11.9 % 11.6-14.6 [facility] Work Phone: Immature granulocytes/100 WBC (Bld) 0.500 % 0.0-0.9 [facility] Work Phone: Comment on above: IG% - Immature Granu locytes (promyelocytes, myelocytes and metamyelocytes) > 1% indicates that a LEFT SHIFT is Present. MCH (RBC) [Entitic mass] 30.4 pg 27.0-32.0 [facility] Work Phone: Nucleated RBC/100 WBC (Bld) [Ratio] 0 % 0-5 [facility] Work Phone: MCHC Auto (RBC) [Mass/Vol]on 08-02-2022 MCHC (RBC) [Mass/Vol] 32.6 g/dL 32-36 [facility] Work Phone: Nitrite Test strip Ql (U)on 08-02-2022 Nitrite Ql (U) Negative Negative [facility] Work Phone: No Panel Informationon 08-02 Estimated GFR (MDRD) Amer 105 mL/min >60 [facility] Work Phone: Comment on above: GFR Calc Estimated GFR (MDRD) Non-Af Amer 87 mL/min >60 [facility] Work Phone: Comment on above: Non- GFR Calc Prostate Specific Antigen Screen 2.08 ng/mL 0.00-4.00 [facility] Work Phone: Comment on above: This test was perfor med using the TPSA assay method for [employer] chemistry system. Values obtained with differentassay methods cannot be used interchangably.When changing PSA assays in the course of monitoring apatient, additional sequential testing should be carriedout to confirm baseline values. Platelets bldon 08-02-2022 Platelets (Bld) [#/Vol] 281 10*3/uL 150-450 [facility] Work Phone: Protein Test strip Ql (U)on 08-02-2022 Protein Ql (U) 15 mg/dl Negative [facility] Work Phone: Serum or plasma calcium katia urement (mass/volume)on 08-02-2022 Calcium [Mass/Vol] 9.3 mg/dL 8.5-10.1 [facility] Work Phone: Serum or plasma creatinine m easurement (mass/volume)on 08-02-2022 Creatinine [Mass/Vol] 0.92 mg/dL 0.70-1.30 [facility] Work Phone: Comment on above: The validity of the calculated GFR & GFRAA in patients over 70 years has not been determined. Clinical correlation is essential. Serum or plasma urea nitroge n measurement (mass/volume)on 08-02-2022 Urea nitrogen [Mass/Vol] 20 mg/dL 7-18 [facility] Work Phone: Thin prep Papanicolaou smear with manual screeningon 08-02-2022 Thin prep Papanicolaou smear with manual screening 5 5-15 [facility] Work Phone: Urine blood detectionon 07-22 RBC Ql (U) 10 /ul Negative [facility] Work Phone: Urine clarityon 08-02-2022 Clarity (U) Clear Clear [facility] Work Phone: Urine color determinationon 08-02-2022 Color (U) Yellow Yellow [facility] Work Phone: Urine glucose detectionon Glucose Ql (U) Normal mg/dl Normal [facility] Work Phone: Urine leukocyte esterase det ection by dipstickon 08-02-2022 Leukocyte esterase Test strip Ql (U) 25 /ul Negative [facility] Work Phone: Urine pHon 08-02-2022 pH (U) 5.0 [pH] 5.0 - 8.0 [facility] Work Phone: Urine specific gravity measu rementon 08-02-2022 Specific gravity (U) [Rel density] 1.025 1.002-1.030 [facility] Work Phone: Urobilinogen Auto test strip Ql (U)on 08-02-2022 Urobilinogen Ql (U) Normal mg/dl Normal [facility] Work Phone: Basophil percentageon 2021 Bilirubin [Mass/Vol] 0.50 mg/dL 0.20-1.00 [facility] Work Phone: Comment on above: For patients on eltr ombopag therapy, use of Dimension Laie TBIL is not recommended. Cholesterol [Mass/Vol] 116 mg/dL <200 [facility] Work Phone: Comment on above: <200 mg/dL Desirable 200-240 mg/dL Borderline >240 mg/dL High Risk Protein [Mass/Vol] 7.3 g/dL 6.4-8.2 [facility] Work Phone: Triglyceride [Mass/Vol] 95 mg/dL <199 [facility] Work Phone: Comment on above: The drugs N-Acetylcy steine and Metamizole may falsely depress this assay.Serum Triglycerides Reference Interval Normal <150 mg/dL Borderline high 150 - 199 mg/dL High 200 - 499 mg/dL Very High > or = 500 mg/dL Direct bilirubinon 2 Bilirubin.direct [Mass/Vol] 0.13 mg/dL 0.00-0.30 [facility] Work Phone: Laboratory - Chemistry and C hemistry - challengeon 03-23-2022 ALP [Catalytic activity/Vol] 62 U/L 45-117 [facility] Work Phone: ALT [Catalytic activity/Vol] 33 U/L 16-61 [facility] Work Phone: Globulin (S) [Mass/Vol] 3.6 g/dL 2.2-4.2 [facility] Work Phone: Serum or plasma albumin katia urement (mass/volume)on 03-23-2022 Albumin [Mass/Vol] 3.7 g/dL 3.2-5.0 [facility] Work Phone: Serum or plasma cholesterol in HDL measurement (mass/volume)on 03-23-2022 Cholesterol in HDL [Mass/Vol] 41 mg/dL >40 [facility] Work Phone: Comment on above: The drugs N-Acetylcy steine and Metamizole may falsely depress this assay. Reference Range HDL <40 mg/dL Low HDL Cholesterol HDL >or= 60 mg/dL High HDL Cholesterol Serum or plasma cholesterol in VLDL measurement (mass/volume)on 03-23-2022 Cholesterol in VLDL [Mass/Vol] 19 mg/dL 5-40 [facility] Work Phone: Serum or plasma low density lipoprotein (LDL) cholesterol measurement (mass/volume)on 03-23-2022 Cholesterol in LDL [Mass/Vol] 56 mg/dL 0-130 [facility] Work Phone: Thin prep Papanicolaou smear with manual screeningon 03-23-2022 Thin prep Papanicolaou smear with manual screening 17 U/L 15-37 [facility] Work Phone: Vital Signs Date Time Vital Sign Value Performing Clinician Faci lity 05-15-2025 13:21-0400 Body height 180.[address] Shan Shelton DO Work Phone: [facility] 05-15-2025 13:21-0400 Body mass index (BMI) [Ratio] 36.9 kg/m2 Dr. Shan Shelton DO Work Phone: [facility] 05-15-2025 13:21-0400 Body weight 120.[address] Shan Shelton DO Work Phone: [facility] 05-15-2025 13:21-0400 Diastolic blood pressure 75 mm[Hg] Dr. Shan Shelton DO Work Phone: [facility] 05-15-2025 13:21-0400 Heart rate 60 /min Dr. Shan Shelton DO Work Phone: [facility] 05-15-2025 13:21-0400 Respiratory rate 18 /min Dr. Shan Shelton DO Work Phone: [facility] 05-15-2025 13:21-0400 Systolic blood pressure 130 mm[Hg] Dr. Shan Shelton DO Work Phone: [facility] 05-14-2025 19:00-0400 Heart rate 88 /min Dr. Shan Shelton DO Work Phone: [facility] 05-14-2025 19:00-0400 Respiratory rate 16 /min Dr. Shan Shelton DO Work Phone: [facility] 05-14-2025 17:45-0400 Diastolic blood pressure 84 mm[Hg] Dr. Shan Shelton DO Work Phone: [facility] 05-14-2025 17:45-0400 Systolic blood pressure 112 mm[Hg] Dr. Shan Shelton DO Work Phone: [facility] 05-14-2025 15:19-0400 Body mass index (BMI) [Ratio] 37.2 kg/m2 Dr. Shan Shelton DO Work Phone: [facility] 05-14-2025 15:19-0400 Body temperature 98.7 [degF] Dr. Shan Shelton DO Work Phone: [facility] 05-14-2025 15:19-0400 Body weight 121.[address] Shan Shelton DO Work Phone: [facility] 05-14-2025 15:19-0400 SaO2% (BldA) [Mass fraction] 94 % Dr. Shan Shelton DO Work Phone: [facility] 03-21-2025 09:33-0400 Body height 180.[address] Shan Shelton DO Work Phone: [facility] 03-21-2025 09:33-0400 Body mass index (BMI) [Ratio] 37.5 kg/m2 Dr. Shan Shelton DO Work Phone: [facility] 03-21-2025 09:33-0400 Body weight 122.[address] Shan Shelton DO Work Phone: [facility] 03-21-2025 09:33-0400 Diastolic blood pressure 78 mm[Hg] Dr. Shan Shelton DO Work Phone: [facility] 03-21-2025 09:33-0400 Heart rate 54 /min Dr. Shan Shelton DO Work Phone: [facility] 03-21-2025 09:33-0400 Respiratory rate 18 /min Dr. Shan Shelton DO Work Phone: [facility] 03-21-2025 09:33-0400 Systolic blood pressure 122 mm[Hg] Dr. Shan Shelton DO Work Phone: [facility] 02-17-2023 09:33-0400 Body weight 118.[address] Shan Shelton Work Phone: [facility] 02-17-2023 09:33-0400 Diastolic blood pressure 66 mm[Hg] Dr. Shan Shelton Work Phone: [facility] 02-17-2023 09:33-0400 Heart rate 61 /min Dr. Shan Shelton Work Phone: [facility] 02-17-2023 09:33-0400 Respiratory rate 16 /min Dr. Shan Shelton Work Phone: [facility] 02-17-2023 09:33-0400 Systolic blood pressure 129 mm[Hg] Dr. Shan Shelton Work Phone: [facility] 02-17-2023 08:40-0400 Body height 180.[address] Shan Shelton Work Phone: [facility] 01-20-2022 08:24-0400 Body height 180.[address] Shan Shelton Work Phone: [facility] Work Phone: 01-20-2022 08:24-0400 Body weight 120.[address] Shan Shelton Work Phone: [facility] Work Phone: 01-20-2022 08:24-0400 Diastolic blood pressure 69 mm[Hg] Dr. Shan Shelton Work Phone: [facility] Work Phone: 01-20-2022 08:24-0400 Heart rate 64 /min Dr. Shan Shelton Work Phone: [facility] Work Phone: 01-20-2022 08:24-0400 Respiratory rate 16 /min Dr. Shan Shelton Work Phone: [facility] Work Phone: 01-20-2022 08:24-0400 Systolic blood pressure 113 mm[Hg] Dr. Shan Shelton Work Phone: [facility] Work Phone: 01-20-2021 09:08-0400 Body mass index (BMI) [Ratio] 38 kg/m2 Dr. Shan Shelton Work Phone: [facility] Work Phone: Encounters Encounter Date Encounter Type Care Provider Facility Start: 06-10-2025 ambulatory Jose aLne Facility:[facility] Start: 05-15-2025 Patient encounter procedure Libia WILLAMS -Laboratory Work Phone: Start: 05-15-2025 ambulatory Libia WILLAMS Facility:[facility] Start: 05-15-2025 End: 05-15-2025 Patient encounter procedure Libia WILLAMS -[facility] Work Phone: Start: 05-15-2025 End: 05-15-[address] Shan Shelton DO Work Phone: -[facility] Start: 05-14-2025 End: 05-14-2025 Emergency department patient visit Dr. Prakash Archibald MD -Emergency Department Work Phone: Start: 04-05-2025 End: 04-05-[address] Shan Shelton DO Work Phone: -[facility] Start: 04-05-2025 End: 04-05-[address] Shan Shelton DO -[facility] Work Phone: Start: 04-05-2025 End: 04-05-2025 ambulatory Shan Shelton Facility:[facility] Start: 03-21-2025 End: 03-21-[address] Jose Lane MD -[facility] Work Phone: Start: 03-21-2025 End: 03-21-[address] Shan Shelton DO Work Phone: -[facility] Start: 08-27-2024 End: 08-27-2024 ambulatory Shan Shelton Facility:[facility] Start: 07-31-2024 End: 07-31-2024 ambulatory Shan Shelton Facility:[facility] Start: 10-05-2023 End: 10-05-2023 ambulatory [facility] Work Phone: Start: 10-05-2023 End: 10-05-2023 Patient encounter procedure [facility] Work Phone: Start: 09-16-2023 End: 09-16-2023 ambulatory [facility] Work Phone: Start: 09-16-2023 End: 09-16-2023 Patient encounter procedure [facility] Work Phone: Start: 06-29-2023 End: 06-29-[address] Shan Shelton Work Phone: [facility] Work Phone: Start: 06-29-2023 End: 06-29-[address] Shan Shelton Work Phone: [facility] Work Phone: Start: 05-17-2023 Non-patient / Non-visit Dr. Adriana Shelton Work Phone: [facility] Work Phone: Start: 05-17-2023 End: 05-17-[address] Shan Shelton Work Phone: [facility] Work Phone: Start: 02-17-2023 End: 06-29-[address] Shan Shelton Work Phone: [facility] Work Phone: Start: 02-17-2023 End: 02-17-[address] Shan Shelton Work Phone: [facility] Work Phone: Start: 08-02-2022 End: 08-02-2022 ambulatory [facility] Work Phone: Start: 08-02-2022 End: 08-02-2022 [facility] Start: 03-23-2022 End: 03-23-[address] [facility] Start: 01-20-2022 End: 01-20-[address] Shan Shelton Work Phone: [facility] Procedures Date Procedure Procedure Detail Performing Clinician Start: 05-14-2025 Plain chest X-ray Dr. Jesus Manuel Shelton DO Work Phone: Start: 05-14-[address] Shan Shelton DO Work Phone: Start: 10-05-2023 MRI of brain with contrast Start: 06-29-2023 CT of abdomen and pe lvis without contrast Dr. Shan Shelton Work Phone: Start: 05-17-2023 Radionuclide imaging of perfusion of myocardium under exercise stress Dr. Shan Shelton Work Phone: Start: 07-07-2007 History of placement of stent for coronary artery disease History of coronary artery stent placement Dr. Jose Lane MD Comment on above: HBW-EJW-Xmbp-Mid OM1 w/ 3.0 x 28 mm and 3.00 x 8 mm Cypher Stent 06/2007 Plan of Treatment Date Care Activity Detail Author Start: 05-14-2025 [facility] Start: 05-14-2025 [facility] Patient Education ED Chest Pain, Uncertain Cause [facility] Work Phone: Payers Date Payer Category Payer Self-pay [id number] 2024 Medicare [id number] 2024 Unknown [id number] 2015 Unknown [facility] [place] [id number] Unknown [id number] 2.16.8 [id number] Unknown [id number] 2.16.8 [id number] Unknown [id number] 2.16.8 [id number] Unknown [id number] 2.16.8 [id number] Unknown [id number] 2.16.8 [id number] Unknown [id number] 2.16.8 [id number] Unknown [id number] 2.16.8 [id number] Unknown [id number] 2.16.8 [id number] Unknown [id number] 2.16.8 [id number] Social History Date Type Detail Facility Start: 01-20-2022 End: 02-17-2023 Tobacco smoking status PRIS Unknown if ever smoked [facility] Start: 1955 Sex Assigned At Male [facility] Start: 07-31-2024 End: 05-14-2025 Tobacco smoking status NHIS Ex-smoker (finding) [facility] Sex Male [facility] Clinical Notes 07-07-2007 to 05-15-2025 Note Date & Type Note Facility 05-15-[address] [facility] [place] [facility] 05-15-2025 Progress note Note Date/Time May 15, 2025 2:01pm [facility] [address] [place] [address] OFFICE VISIT Date of Service: 05/15/25 MR#: [id number] Acct: [id number] Name: SALTY IQBAL Rep #: [id number] : 1955 Provider: ЕКАТЕРИНА Arciniega Age/Sex: 69/M Location: [facility] Status: Signed HPI HPI History of Present Illness Details: Pleasant 69-year-old man with a previous cardiac history consisted of angina status [...] ejection fraction of 50%. The stress test wasperformed and he attained a metabolic workload of 9 metabolic equivalents. Pt was in the ER yesterday (05/14/25) he presented with epigastric pain, nausea, vomiting, diaphoresis, diarrhea. It radiated upwards. He did take NTG. This lasted approx 20 minutes. Symptoms were relieved with NTG. Troponins were negative. This was what he had prior to his previous stenting. Intake Vital Signs 05/14/25 15:19 05/15/25 13:21 Height 5 ft 11 in 5 ft 11 in Weight: 265 lb BMI 36.9 BP 130/75 H Blood Pressure Location Lt brachial Position Sitting Respiration 18 Pulse 60 Pulse Source NIBP Intake Visit Reasons: S/P [facility] 05/14 Metabolic Specialist Required: No Is patient in pain?: No Allergies Penicillins Allergy (Verified 05/15/25 13:24) Anaphylaxis atorvastatin (From Lipitor) Adverse Reaction (Verified 05/15/25 13:24) myalgia cefaclor (From Ceclor) Adverse Reaction (Verified 05/15/25 13:24) Unknown Opioids - Morphine Analogues Adverse Reaction (Verified 05/15/25 13:24) bradycardia tetracycline Adverse Reaction (Verified 05/15/25 13:24) Unknown Medications ?Medication ?Instructions ?Recorded ?Confirmed ?Type aspirin 81 mg tablet,delayed 81 mg PO DAILY 01/11/19 0 05/15/25 History release (Adult Low Dose Aspirin) multivitamin 1 tab PO DAILY 01/11/19/12/14 History pantoprazole 40 mg tablet,delayed 40 mg PO QAM 30 days #30 tabs 01/12/19 05/15/25 History release sertraline 50 mg tablet 50 mg PO DAILY 30 days #30 t abs 06/01/19 05/15/25 History omega-3 fatty acids 1,000 mg 2,000 mg PO QHS 01/20/21 05/15/25 History capsule (Fish Oil Concentrate) nitroglycerin 0.4 mg sublingual 0.4 mg sublingual Q5-1 5M PRN 02/06/24 05/15/25 Rx tablet Cardiac/Chest Pain 30 days # 25 tabs lisinopril 5 mg tablet 5 mg PO DAILY #90 tabs 04/1605/15/25 Rx ezetimibe 10 mg-simvastatin 20 mg See Rx Instructions .Route 04/24/25 05/15/25 Rx tablet .COMPLEX #90 tabs metoprolol tartrate 25 mg tablet 25 mg PO BID #180 tab s 05/09/25 05/15/25 Rx coenzyme Q10 100 mg tablet 100 mg PO QDAY 05/15/25 History Ejection fraction %: 50 Have you fallen in the past year?: No PFSH Medical History Wears hearing aid Loss of hearing Wears glasses Depression History of kidney stones High cholesterol Diverticulosis History of diverticulitis Former smoker Hypertension Cardiology follow-up encounter History of stress test Personal history of colonic polyps Obesity Erectile dysfunction GERD (gastroesophageal reflux disease) Atherosclerosis of coronary artery of [place] heart without angina pectoris Essential (primary) hypertension Dyslipidemia Surgical History History of cardiac catheterization Hx of colonoscopy History of left heart catheterization (10/03/07) History of herniorrhaphy History of coronary artery stent placement (07/07/07) Family History Brother Heart disease Myocardial infarction, Onset Age: 46 from [place] CAD (coronary artery disease) STENTS Colon polyps Brother Heart disease Myocardial infarction, Onset Age: 50 CAD (coronary artery disease) CABG Colon polyps Father Cancer Mother CAD (coronary artery disease) CABGx x 3 Colon polyps Other Atherosclerosis of coronary artery of [place] heart without angina pectoris Dyslipidemia Essential (primary) hypertension History of coronary artery stent placement Social History household members: spouse current occupational status: retired Smoking Status: Former smoker how long ago did patient quit smokin years ago alcohol intake: current alcohol intake frequency: 0-2 drinks per day Alcohol type: beer substance use type: does not use caffeine: Yes Type: coffee Number of servings: 3 ROS Const Const: Positive for fatigue; Negative for weakness Eyes Eyes: Negative for change in vision ENT ENT: Negative for dizziness or balance problems Cardio Chest Pain: No Palpitations: No Edema: None Resp Respiratory: Negative for SOB with activity, SOB at rest or SOB orthopnea\SOB lying down GI GI: Negative nausea or heartburn Musc Musc: Negative for balance problems Neuro Neuro: Positive for syncope; Negative for dizziness, lightheadedness, near syncope or weakness Endo Endo: Positive for fatigue Cardiology Exam Const Appearance: cooperative, healthy appearing, comfortable and no acute distress Nutritional Appearance: well nourished and obese Orientation: alert, awake and oriented x3 Head Head: normal to inspection Ears: hearing grossly normal bilaterally Nose: external nose normal Face and Sinus: face symmetric Mouth: moist mucous membranes Eyes General: appearance normal, both eyes and all related structures Eyelids: eyelids normal EOM: EOM intact bilaterally Neck Neck: normal visual inspection and no JVD Carotids: normal carotid upstroke Chest Chest inspection: normal inspection of the chest, symmetric chest movement and normal respiratory effort; Negative cough Auscultation: Bilateral: Clear to Auscultation Cardio Rate: regular rate Rhythm: regular rhythm Heart sounds: S1 normal and S2 normal; Negative rub, gallop or murmur GI GI: normal to inspection and obese Neuro General: patient alert, patient awake, patient oriented x3 and CN's II-XI intactbilaterally Skin Skin: no rashes or lesions noted Extremities Pulses: Normal: Right Posterior Tibial Pulse, Left Posterior Tibial Pulse, RightRadial Pulse and Left Radial Pulse Lower Extremity Edema: None: Bilateral Psych Psychological: normal affect Supplemental Info Supplemental Information Echocardiogram 10/08/2016 Interpretation Summary Normal LV size. Left ventricular systolic function is at the lower limits of normal. The estimated ejection fraction is 50%. Mild (1+) eccentric mitral valve insufficiency. Mild (1+) tricuspid valve insufficiency. Pulmonary artery systolic pressure is 25 mmHG. Mild (1+) eccentric aortic valve insufficiency. Stress Test 05/17/2023: Conclusion: Normal exercise myocardial perfusion stress test at a moderate to high workload Preserved ejection fraction. Assessment and Plan Assessment and Plan (1) History of coronary artery stent placement: Status: Resolved Comment: CFO-JPE-Dslg-Mid OM1 w/ 3.0 x 28 mm and 3.00 x 8 mm Cypher Stent 06/2007 Plan: Because patient's symptoms are very similar to what he had prior to his stentingin 2006 would like to pursue a diagnostic heart catheterization to further assess. Patient is agreeable with this. Will follow-up with patient after heart catheterization. (2) Essential (primary) hypertension: Status: Chronic Plan: Patient's blood pressure is well-controlled. We will continue to monitor. We will not make any medication regimen changes. (3) Dyslipidemia: Status: Chronic Plan: Lipid panel from August 2024 demonstrates total cholesterol 137 HDL 41 LDL of 58. He was made of LDL goal of 70 and below for secondary prevention with an ideal goal closer to 50?55. He will continue Zetia?simvastatin 10-20 mg p.o. daily. (4) Chest discomfort: Status: Acute Orders: Orders Prothrombin Time w/INR 05/15/25 R07.89 - Other chest pain, Z95.5 - Presence of coronary angioplasty implant and graft Patient Instructions: Your procedure is schedule for 06/10/25 at 0900 arrive at 0730 Nothing to eat or drink after midnight With a small sip of water take your morning medications. You will need a oil transport driver. If you need a stent you will spend the night. Plan Details Additional Comments: Thank you for allowing us to participate in the patients plan of care, if you have any questions please do not hesitate to call. This note was generated using a voice recognition system and there may be incorrect words, spelling or punctuation that were not noted when reviewing the office note prior to saving. Portions of this documentation were copied and pasted from previous office visitnotes to provide a cohesive continuity of the history. The note has been reviewed, edited, and updated, as necessary. Follow Up: 05/15/25 (June with enriqueta or myself) Coding Level of Care Code Off vis,est,level 4 Diagnoses History of coronary artery stent placement Z95.5 Essential (primary) hypertension I10 Dyslipidemia E78.5 Chest discomfort R07.89 Coding Level of Care Code Off vis,est,level 4 Diagnoses History of coronary artery stent placement Z95.5 Essential (primary) hypertension I10 Dyslipidemia E78.5 Chest discomfort R07.89 Clinical Quality Measures Falls Risk Screening/Assistive Devices Have you fallen in the past year?: No Cardiac Ejection fraction %: 50 05/16/25 0750 <Electronically signed by Libia Pimentel> Date _ Libia WILLAMS Cosigner Signature: Date (if applicable) CC: Dr. Shan Shelton DO ~ [facility] [employer] Work Phone: [phone] Discharge summary [facility] Medical Records Department [address] [place] [address] Emergency Department Summary 05/14/25 MR#: [id number] Acct: [id number] Name: SALTY IQBAL Rep #:[id number] : 1955 69 From: Prakash Archbiald MD PCP: Dr. Shan Shelton DO Status:REG ER Location: ED HPI History of Present Illness Chief Complaint: Abd Pain Detail of Chief Complaint: Discomfort upper abdomen that migrated to the chest with urge to defecate Informant: patient and spouse/S.O. Onset/Context/Timing Onset: Today (Approximately 1330) Context: Sudden Onset Timing: Intermittent Quality: Discomfort similar to VA 18 years ago Location: Upper abdomen and chest bilaterally Current Severity: Gone Maximum Severity: Mild Worsened by: Nothing Relieved by: 7 minutes after taking a nitroglycerin tablet Associated Symptoms Associated Symptoms: Urge to defecate, nausea and vomiting and diaphoresis Narrative Narrative: Patient is 69-year-old male. He has history of coronary disease. He has 2 stents placed June 2007. He does have history of hypertension, dyslipidemiaand prediabetes. He had lunch at 11:30 AM. He had a omelette on bread. made this for him. He states he was under a tree on his cell phone when he developed discomfort in his upper abdomen that migrated towards the chest and had urge to defecate. He went to the restroom. He states he had a loose bowel movement. The discomfort did not get any better. He asked his to get blood pressure cuff and measure his blood pressure. It was not elevated. He then became diaphoretic and went into the house because he had episode of emesis. He became quite diaphoretic. He states this reminded him of the symptoms he had when he was diagnosed with VA 18 years ago. He asked his to get him a nitro. 7 minutes after taking the nitro his discomfort was alleviated. Prior similar symptoms: Yes (VA 18 years ago) Recent Illness/Hospitalization: No PFSH PFSH Medical History Wears hearing aid Loss of hearing Wears glasses Depression History of kidney stones High cholesterol Diverticulosis History of diverticulitis Former smoker Hypertension Cardiology follow-up encounter History of stress test Personal history of colonic polyps Obesity Erectile dysfunction GERD (gastroesophageal reflux disease) Atherosclerosis of coronary artery of [place] heart without angina pectoris Essential (primary) hypertension Dyslipidemia Home Medications ?Medication ?Instructions ?Recorded ?Last Taken ?Type aspirin 81 mg tablet,delayed 81 mg PO DAILY 01/11/19 U nknown History release (Adult Low Dose Aspirin) multivitamin 1 tab PO DAILY 01/11/19 Unkn own History pantoprazole 40 mg tablet,delayed 40 mg PO QAM 30 days #30 tabs 01/12/19 07/31/24 05:30 History release sertraline 50 mg tablet 50 mg PO DAILY 30 days #30 t abs 06/01/19 07/31/24 05:30 History omega-3 fatty acids 1,000 mg 2,000 mg PO QHS 01/20/21 Unknown History capsule (Fish Oil Concentrate) nitroglycerin 0.4 mg sublingual 0.4 mg sublingual Q5-1 5M PRN 02/06/24 Unknown Rx tablet Cardiac/Chest Pain 30 days # 25 tabs coenzyme Q10 50 mg capsule (Co 50 mg PO QDAY 06/07/24 Unknown History Q-10) trazodone 100 mg tablet 100 mg PO QHS 03/21/25 Unkno wn History lisinopril 5 mg tablet 5 mg PO DAILY #90 tabs 04/16 Unknown Rx ezetimibe 10 mg-simvastatin 20 mg See Rx Instructions .Route 04/24/25 Unknown Rx tablet .COMPLEX #90 tabs metoprolol tartrate 25 mg tablet 25 mg PO BID #180 tab s 05/09/25 Unknown Rx Allergy/AdvReac Type Severity Reaction Status Date / Time Penicillins Allergy Anaphylaxis Verified 05/14/25 15:19 atorvastatin (From Lipitor) AdvReac myalgia Verified 05/14/25 15:19 cefaclor (From Ceclor) AdvReac Unknown Verified 05/14/25 15:19 Opioids - Morphine Analogues AdvReac bradycardia Verified 05/14/25 15:19 tetracycline AdvReac Unknown Verified 05/14/25 15:19 Family History Brother Heart disease Myocardial infarction, Onset Age: 46 from [place] CAD (coronary artery disease) STENTS Colon polyps Brother Heart disease Myocardial infarction, Onset Age: 50 CAD (coronary artery disease) CABG Colon polyps Father Cancer Mother CAD (coronary artery disease) CABGx x 3 Colon polyps Other Atherosclerosis of coronary artery of [place] heart without angina pectoris Dyslipidemia Essential (primary) hypertension History of coronary artery stent placement Surgical History History of cardiac catheterization Hx of colonoscopy History of left heart catheterization (10/03/07) History of herniorrhaphy History of coronary artery stent placement (07/07/07) Social History (Updated 05/14/25 @ 16:00 by Nicole Phillips) household members: spouse current occupational status: retired Smoking Status: Former smoker how long ago did patient quit smokin years ago alcohol intake: current alcohol intake frequency: 0-2 drinks per day Alcohol type: beer substance use type: does not use caffeine: Yes Type: coffee Number of servings: 3 ROS ROS ED Constitutional Constitutional ED: Denies chills, fever(s), subjective or sweats Eyes Eyes: Denies blurry vision or change in vision ENT ENT ED: Denies ear pain or rhinorrhea Cardiovascular Cardiovascular: Reports chest pain; Denies orthopnea, palpitations, paroxysmal nocturnal dyspnea orracing heartbeat Respiratory/Chest Respiratory/Chest: Denies cough, dyspnea, dyspnea on exertion, orthopnea or paroxysmal nocturnal dyspnea Gastrointestinal Gastrointestinal: Reports abdominal pain, diarrhea, nausea and vomiting; Denies constipation or melena Genitourinary Genitourinary ED: Denies dysuria, hematuria or urinary frequency Musculoskeletal Musculoskeletal: Denies back pain or neck pain Integumentary Denies abscess or rash Neurologic Neurologic: Denies headache(s), paresthesias or weakness Psychiatric Psychiatric: Denies anxiety or depression Hematologic/Lymphatic Hematologic/Lymphatic: Reports systems reviewed and no addt'l complaints, exceptas documented EXAM Physical Exam Const Vital Signs: 05/14/25 15:19 05/14/25 15:58 05/14/25 16:25 Temperature 98.7 F Temperature Source Oral Pulse Rate 80 91 Respiratory Rate 18 23 H Blood Pressure 134/85 H 139/86 H Blood Pressure Mean 101 103 Pulse Ox 94 Oxygen Delivery Method Room Air Room Air 05/14/25 17:00 05/14/25 17:45 05/14/25 19:00 Temperature Temperature Source Pulse Rate 85 82 88 Respiratory Rate 15 26 H 16 Blood Pressure 127/89 H 112/84 H Blood Pressure Mean 101 93 Pulse Ox Oxygen Delivery Method Positive well nourished and well developed Constitutional Narrative: BMI is 37.2. Blood pressure slightly elevated 135/85. General Appearance ED: well developed and NAD; Negative for pallor HEENT HEENT Narrative: Head is atraumatic and normocephalic. Ears normal. Nares patent. Posterior pharynx is normal Eyes PERRL and EOMs intact bilaterally General Eye ED: Negative for pale conjunctiva or scleral icterus Neck no lymphadenopathy, supple and no JVD Chest Wall inspection of chest normal and palpation of chest normal Resp normal respiratory effort and clear to auscultation bilaterally Cardio regular rate, regular rhythm, S1 normal heart sound, S2 normal heart sound and no murmurs GI normal to inspection, nondistended, normoactive bowel sounds, non-tender, non- distended and no masses; Negative for hepatosplenomegaly Extremity normal to inspection General Extremety ED: Negative for edema or tenderness General Extremity: Negative for edema Neuro oriented x3 and CN's II-XII intact bilaterally Sensorium / Orientation: alert Psych mental status grossly normal Skin no rashes or lesions noted, no wounds and skin turgor normal General Skin Exam: elasticity normal; Negative for jaundice or pallor MDM MDM MDM Narrative Medical decision making narrative: Differential diagnosis is biliary disease, indigestion, peptic ulcer disease, cardiac ischemia. Concern dismemberment cardiac ischemia since he got relief for 7 minutes after taking nitroglycerin. Patient was recently seen by Dr. Hahn, office visit March 21 of this year. He had a drug-eluting stent placed to the first obtuse marginal branch. 2007 he had a repeat cardiac catheterization which demonstrated patent stents. His laststress test was November 2018 and there was no evidence of ischemia.Most recent echo was 2016 with an EF of 50%. His informing that he has prediabetes. There was visit with Dr. Olea for ED EGD/colonoscopy. Patient has a personal history of colonic polyps. History & Record Review Additional record(s) reviewed:: Prior outpatient record, Prior ED visit and Prior labs Lab Data Labs: Laboratory Results - last 24 hr 05/14/25 05/14/25 15:40 17:39 WBC 11.7 H RBC 5.13 Hgb 16.2 Hct 46.2 MCV 90.1 MCH 31.6 MCHC 35.1 RDW Std Deviation 41.8 RDW Coeff of Angelic 12.6 Plt Count 202 MPV 9.4 Immature Gran % (Auto) 0.300 Neut % (Auto) 76.2 H Lymph % (Auto) 11.6 L Metcalfe % (Auto) 10.0 Eos % (Auto) 1.6 Baso % (Auto) 0.3 Absolute Neuts (auto) 8.9 H Absolute Lymphs (auto) 1.36 Nucleated RBC % 0 Sodium 138 Potassium 4.8 Chloride 105 Carbon Dioxide 19.7 L Anion Gap 14 BUN 19 Creatinine 1.03 Estim Creat Clear Calc 88.37 Est GFR (MDRD) Non-Af 78 BUN/Creatinine Ratio 18.8 Glucose 123 H Calcium 9.5 Total Bilirubin 0.49 AST 34 ALT 30 Alkaline Phosphatase 66 Troponin T High Sens 8 Troponin T Hi Sens 2 Hr 7 Total Protein 7.6 Albumin 4.3 Globulin 3.3 Albumin/Globulin Ratio 1.3 Lipase 27 Radiography Diagnostic Testing: Clinical Impression(s) from Imaging Studies Chest X-Ray 05/14/25 15:55 IMPRESSION: No Acute Findings. Reading Location: [facility] Treatment and Re-Evaluation :: Patient's troponin and delta are negative. Because this resembled/was similar to the pain he experienced with his [facility] Dr. Lane who is on-call and his cardiology to discuss case and specifically whether patient can be seen as an outpatient with outpatient workup versus inpatient. After informing himof his history, physical findings, laboratory test and the fact that this was similar to the presentation he had when he had his [facility] and the fact that he got relief from nitroglycerin. Additional studies were reviewed as well. Plan is discharged to home. He is to call the office tomorrow for follow-up later this week. Discharge Plan Triage Chief Complaint: Abd Pain ED Provider: Prakash Archibald Dx/Rx/DC Orders Clinical Impression: Chest discomfort, Dyslipidemia, Essential (primary) hypertension, History of coronary artery disease Instructions: ED Chest Pain, Uncertain Cause Prescriptions: No Action multivitamin tablet 1 tab PO DAILY aspirin [Adult Low Dose Aspirin] 81 mg tablet,delayed release (DR/EC) 81 mg PO DAILY pantoprazole 40 mg tablet,delayed release (DR/EC) 40 mg PO QAM 30 Days Qty: 30 sertraline 50 mg tablet 50 mg PO DAILY 30 Days Qty: 30 omega-3 fatty acids [Fish Oil Concentrate] 1,000 mg capsule 2,000 mg PO QHS nitroglycerin 0.4 mg tablet, sublingual 0.4 mg SUBLINGUAL Q5-15M PRN (Reason: Cardiac/Chest Pain) 30 Days Qty: 25 5RF trazodone 100 mg tablet 100 mg PO QHS coenzyme Q10 [Co Q-10] 50 mg capsule 50 mg PO QDAY lisinopril 5 mg tablet 5 mg PO DAILY Qty: 90 3RF ezetimibe-simvastatin 10-20 mg tablet See Rx Instructions .ROUTE .COMPLEX Qty: 90 3RF Dose Instruction: TAKE 1 TABLET BY MOUTH EVERYDAY AT BEDTIME Rx Instructions: TAKE 1 TABLET BY MOUTH EVERYDAY AT BEDTIME metoprolol tartrate 25 mg tablet 25 mg PO BID Qty: 180 3RF Primary Care Provider: Shan Shelton Referrals: Jose Lane MD [Med Staff - Active Staff, Cardiology] - As soon as possible Shan Shelton DO [Primary Care Provider, Family Practice] Print Language: Latvian Disposition Disposition: Home, Self Care What to do if you have Problems For any increased pain, shortness of breath, bleeding, nausea or vomiting, chestpain, or any unexpected problems, contact your Primary Care Provider. Call [facility] ([phone]) or report tothe closest Emergency Room. Call 911 if necessary. 05/14/251948 Cosigner Signature (if applicable): CC: Dr. Shan Shelton DO ~ Signed [facility]09-23-2025 Radiology Diagnostic study note [facility] Imaging Services [address] [place] [address] Chest 1 View (Portable) MR#: [id number] Acct: [id number] Name: SALTY IQBAL Rep #: [id number] : 1955 M 69 From: Edmundo Cortez MD PCP: Dr. Shan Shelton DO Status: REG ER Study:Chest 1 View (Portable) Date of Exam: 05/14/25 Exam# [id number] Ordering Dr: Morales Archibald MD PROCEDURE: CHEST 1 VIEW (PORTABLE) 05/14/2025 REASON FOR EXAM: CHEST PAIN TECHNIQUE: Frontal view of the chest. COMPARISON: 08/11/2021. FINDINGS: The heart is normal in size. The lungs are clear. No acute osseous abnormalities. RAD/Chest 1 View (Portable) IMPRESSION: No Acute Findings. Reading Location: [id number] CC: Dr. Shan Shelton DO; Dr. Prakash Archibald MD ~ Chief Crna: Signed [facility]09-23-2025 Discharge summary Author Prakash Archibald [facility] Note Date/Time May 14, 2025 7:49pm [facility] Medical Records Department [address] [place] [address] Emergency Department Summary 05/14/25 MR#: [id number] Acct: [id number] Name: SALTY IQBAL Rep #:[id number] : 1955 69 From: Prakash Archibald MD PCP: Dr. Shan Shelton, DO Status:REG ER Location: ED HPI History of Present Illness Chief Complaint: Abd Pain Detail of Chief Complaint: Discomfort upper abdomen that migrated to the chest with urge to defecate Informant: patient and spouse/S.O. Onset/Context/Timing Onset: Today (Approximately 1330) Context: Sudden Onset Timing: Intermittent Quality: Discomfort similar to [facility] 18 years ago Location: Upper abdomen and chest bilaterally Current Severity: Gone Maximum Severity: Mild Worsened by: Nothing Relieved by: 7 minutes after taking a nitroglycerin tablet Associated Symptoms Associated Symptoms: Urge to defecate, nausea and vomiting and diaphoresis Narrative Narrative: Patient is 69-year-old male. He has history of coronary disease. He has 2 stents placed June 2007. He does have history of hypertension, dyslipidemiaand prediabetes. He had lunch at 11:30 AM. He had a omelette on bread. made this for him. He states he was under a tree on his cell phone when he developed discomfort in his upper abdomen that migrated towards the chest and had urge to defecate. He went to the restroom. He states he had a loose bowel movement. The discomfort did not get any better. He asked his to get blood pressure cuff and measure his blood pressure. It was not elevated. He then became diaphoretic and went into the house because he had episode of emesis. He became quite diaphoretic. He states this reminded him of the symptoms he had when he was diagnosed with [facility] 18 years ago. He asked his to get him a nitro. 7 minutes after taking the nitro his discomfort was alleviated. Prior similar symptoms: Yes ([facility] 18 years ago) Recent Illness/Hospitalization: No PFSH PFSH Medical History Wears hearing aid Loss of hearing Wears glasses Depression History of kidney stones High cholesterol Diverticulosis History of diverticulitis Former smoker Hypertension Cardiology follow-up encounter History of stress test Personal history of colonic polyps Obesity Erectile dysfunction GERD (gastroesophageal reflux disease) Atherosclerosis of coronary artery of [place] without angina pectoris Essential (primary) hypertension Dyslipidemia Home Medications ?Medication ?Instructions ?Recorded ?Last Taken ?Type aspirin 81 mg tablet,delayed 81 mg PO DAILY 01/11/19 U nknown History release (Adult Low Dose Aspirin) multivitamin 1 tab PO DAILY 01/11/19 Unkn own History pantoprazole 40 mg tablet,delayed 40 mg PO QAM 30 days #30 tabs 01/12/19 07/31/24 05:30 History release sertraline 50 mg tablet 50 mg PO DAILY 30 days #30 t abs 06/01/19 07/31/24 05:30 History omega-3 fatty acids 1,000 mg 2,000 mg PO QHS 01/20/21 Unknown History capsule (Fish Oil Concentrate) nitroglycerin 0.4 mg sublingual 0.4 mg sublingual Q5-1 5M PRN 02/06/24 Unknown Rx tablet Cardiac/Chest Pain 30 days # 25 tabs coenzyme Q10 50 mg capsule (Co 50 mg PO QDAY 06/07/24 Unknown History Q-10) trazodone 100 mg tablet 100 mg PO QHS 03/21/25 Unkno wn History lisinopril 5 mg tablet 5 mg PO DAILY #90 tabs 04/16 Unknown Rx ezetimibe 10 mg-simvastatin 20 mg See Rx Instructions .Route 04/24/25 Unknown Rx tablet .COMPLEX #90 tabs metoprolol tartrate 25 mg tablet 25 mg PO BID #180 tab s 05/09/25 Unknown Rx Allergy/AdvReac Type Severity Reaction Status Date / Time Penicillins Allergy Anaphylaxis Verified 05/14/25 15:19 atorvastatin (From Lipitor) AdvReac myalgia Verified 05/14/25 15:19 cefaclor (From Ceclor) AdvReac Unknown Verified 05/14/25 15:19 Opioids - Morphine Analogues AdvReac bradycardia Verified 05/14/25 15:19 tetracycline AdvReac Unknown Verified 05/14/25 15:19 Family History Brother Heart disease Myocardial infarction, Onset Age: 46 from [place] CAD (coronary artery disease) STENTS Colon polyps Brother Heart disease Myocardial infarction, Onset Age: 50 CAD (coronary artery disease) CABG Colon polyps Father Cancer Mother CAD (coronary artery disease) CABGx x 3 Colon polyps Other Atherosclerosis of coronary artery of [place] without angina pectoris Dyslipidemia Essential (primary) hypertension History of coronary artery stent placement Surgical History History of cardiac catheterization Hx of colonoscopy History of left heart catheterization (10/03/07) History of herniorrhaphy History of coronary artery stent placement (07/07/07) Social History (Updated 05/14/25 @ 16:00 by Nicole Phillips) household members: spouse current occupational status: retired Smoking Status: Former smoker how long ago did patient quit smokin years ago alcohol intake: current alcohol intake frequency: 0-2 drinks per day Alcohol type: beer substance use type: does not use caffeine: Yes Type: coffee Number of servings: 3 ROS ROS ED Constitutional Constitutional ED: Denies chills, fever(s), subjective or sweats Eyes Eyes: Denies blurry vision or change in vision ENT ENT ED: Denies ear pain or rhinorrhea Cardiovascular Cardiovascular: Reports chest pain; Denies orthopnea, palpitations, paroxysmal nocturnal dyspnea or racing heartbeat Respiratory/Chest Respiratory/Chest: Denies cough, dyspnea, dyspnea on exertion, orthopnea or paroxysmal nocturnal dyspnea Gastrointestinal Gastrointestinal: Reports abdominal pain, diarrhea, nausea and vomiting; Denies constipation or melena Genitourinary Genitourinary ED: Denies dysuria, hematuria or urinary frequency Musculoskeletal Musculoskeletal: Denies back pain or neck pain Integumentary Denies abscess or rash Neurologic Neurologic: Denies headache(s), paresthesias or weakness Psychiatric Psychiatric: Denies anxiety or depression Hematologic/Lymphatic Hematologic/Lymphatic: Reports systems reviewed and no addt'l complaints, exceptas documented EXAM Physical Exam Const Vital Signs: 05/14/25 15:19 05/14/25 15:58 05/14/25 16:25 Temperature 98.7 F Temperature Source Oral Pulse Rate 80 91 Respiratory Rate 18 23 H Blood Pressure 134/85 H 139/86 H Blood Pressure Mean 101 103 Pulse Ox 94 Oxygen Delivery Method Room Air Room Air 05/14/25 17:00 05/14/25 17:45 05/14/25 19:00 Temperature Temperature Source Pulse Rate 85 82 88 Respiratory Rate 15 26 H 16 Blood Pressure 127/89 H 112/84 H Blood Pressure Mean 101 93 Pulse Ox Oxygen Delivery Method Positive well nourished and well developed Constitutional Narrative: BMI is 37.2. Blood pressure slightly elevated 135/85. General Appearance ED: well developed and NAD; Negative for pallor HEENT HEENT Narrative: Head is atraumatic and normocephalic. Ears normal. Nares patent. Posterior pharynx is normal Eyes PERRL and EOMs intact bilaterally General Eye ED: Negative for pale conjunctiva or scleral icterus Neck no lymphadenopathy, supple and no JVD Chest Wall inspection of chest normal and palpation of chest normal Resp normal respiratory effort and clear to auscultation bilaterally Cardio regular rate, regular rhythm, S1 normal heart sound, S2 normal heart sound and no murmurs GI normal to inspection, nondistended, normoactive bowel sounds, non-tender, non-distended and no masses; Negative for hepatosplenomegaly Extremity normal to inspection General Extremety ED: Negative for edema or tenderness General Extremity: Negative for edema Neuro oriented x3 and CN's II-XII intact bilaterally Sensorium / Orientation: alert Psych mental status grossly normal Skin no rashes or lesions noted, no wounds and skin turgor normal General Skin Exam: elasticity normal; Negative for jaundice or pallor MDM MDM MDM Narrative Medical decision making narrative: Differential diagnosis is biliary disease, indigestion, peptic ulcer disease, cardiac ischemia. Concern dismemberment cardiac ischemia since he got relief for 7 minutes after taking nitroglycerin. Patient was recently seen by Dr. Hahn, office visit March 21 of this year. He had a drug-eluting stent placed to the first obtuse marginal branch. 2007 he had a repeat cardiac catheterization which demonstrated patent stents. His laststress test was November 2018 and there was no evidence of ischemia. Most recent echo was 2016 with an EF of 50%. His informing that he has prediabetes. There was visit with Dr. Olea for ED EGD/colonoscopy. Patient has a personal history of colonic polyps. History & Record Review Additional record(s) reviewed:: Prior outpatient record, Prior ED visit and Prior labs Lab Data Labs: Laboratory Results - last 24 hr 05/14/25 05/14/25 15:40 17:39 WBC 11.7 H RBC 5.13 Hgb 16.2 Hct 46.2 MCV 90.1 MCH 31.6 MCHC 35.1 RDW Std Deviation 41.8 RDW Coeff of Angelic 12.6 Plt Count 202 MPV 9.4 Immature Gran % (Auto) 0.300 Neut % (Auto) 76.2 H Lymph % (Auto) 11.6 L Metcalfe % (Auto) 10.0 Eos % (Auto) 1.6 Baso % (Auto) 0.3 Absolute Neuts (auto) 8.9 H Absolute Lymphs (auto) 1.36 Nucleated RBC % 0 Sodium 138 Potassium 4.8 Chloride 105 Carbon Dioxide 19.7 L Anion Gap 14 BUN 19 Creatinine 1.03 Estim Creat Clear Calc 88.37 Est GFR (MDRD) Non-Af 78 BUN/Creatinine Ratio 18.8 Glucose 123 H Calcium 9.5 Total Bilirubin 0.49 AST 34 ALT 30 Alkaline Phosphatase 66 Troponin T High Sens 8 Troponin T Hi Sens 2 Hr 7 Total Protein 7.6 Albumin 4.3 Globulin 3.3 Albumin/Globulin Ratio 1.3 Lipase 27 Radiography Diagnostic Testing: Clinical Impression(s) from Imaging Studies Chest X-Ray 05/14/25 15:55 IMPRESSION: No Acute Findings. Reading Location: [id number] Treatment and Re-Evaluation :: Patient's troponin and delta are negative. Because this resembled/was similar to the [facility] he [facility] Lane who is on-call and his cardiology to discuss case and specifically whether patient can be seen as an outpatient with outpatient workup versus inpatient. After informing him of his history, physical findings, laboratory test and the fact that this was similar to the presentation he had when he had his [facility] and the fact that he got relief from nitroglycerin. Additional studies were reviewed as well. Plan is discharged to home. He is to call the office tomorrow for follow-up later this week. Discharge Plan Triage Chief Complaint: Abd Pain ED Provider: Prakash Archibald Dx/Rx/DC Orders Clinical Impression: Chest discomfort, Dyslipidemia, Essential (primary) hypertension, History of coronary artery disease Instructions: ED Chest Pain, Uncertain Cause Prescriptions: No Action multivitamin tablet 1 tab PO DAILY aspirin [Adult Low Dose Aspirin] 81 mg tablet,delayed release (DR/EC) 81 mg PO DAILY pantoprazole 40 mg tablet,delayed release (DR/EC) 40 mg PO QAM 30 Days Qty: 30 sertraline 50 mg tablet 50 mg PO DAILY 30 Days Qty: 30 omega-3 fatty acids [Fish Oil Concentrate] 1,000 mg capsule 2,000 mg PO QHS nitroglycerin 0.4 mg tablet, sublingual 0.4 mg SUBLINGUAL Q5-15M PRN (Reason: Cardiac/Chest Pain) 30 Days Qty: 25 5RF trazodone 100 mg tablet 100 mg PO QHS coenzyme Q10 [Co Q-10] 50 mg capsule 50 mg PO QDAY lisinopril 5 mg tablet 5 mg PO DAILY Qty: 90 3RF ezetimibe-simvastatin 10-20 mg tablet See Rx Instructions .ROUTE .COMPLEX Qty: 90 3RF Dose Instruction: TAKE 1 TABLET BY MOUTH EVERYDAY AT BEDTIME Rx Instructions: TAKE 1 TABLET BY MOUTH EVERYDAY AT BEDTIME metoprolol tartrate 25 mg tablet 25 mg PO BID Qty: 180 3RF Primary Care Provider: Shan Shelton Referrals: Jose Lane MD [Med Staff - Active Staff, Cardiology] - As soon as possible Shan Shelton DO [Primary Care Provider, Family Practice] Print Language: Latvian Disposition Disposition: Home, Self Care What to do if you have Problems For any increased pain, shortness of breath, bleeding, nausea or vomiting, chestpain, or any unexpected problems, contact your Primary Care Provider. Call [facility] ([phone]) or report to the closest Emergency Room. Call 911 if necessary. 05/14/251948 <Electronically signed by Prakash Archibald MD> Cosigner Signature (if applicable): CC: Dr. Shan Shelton DO ~ Signed [facility] Work Phone: 1(517) 874-510707-31-2025 Evaluation note* Diagnosis Onset Date Resolution Status Admit Date Dyslipidemia chronic March 21 025 9:31am Essential (primary) hypertension chronic March 21, 2025 9:31am History of coronary artery stent placement July 07, 2007 resolved March 21 025 9:31am [facility] Work Phone: 1(971) 961-517907-31-2025 Evaluation note* Diagnosis Onset Date Resolution Status Admit Date Dyslipidemia chronic March 21, 025 9:31am Essential (primary) hypertension chronic March 21, 2025 9:31am History of coronary artery stent placement July 07, 2007 resolved March 21, 2025 9:31am Dyslipidemia chronic May 152024 12:46pm Essential (primary) hypertension chronic May 15, 2025 12:46pm History of coronary artery stent placement July 07, 2007 resolved Noemirhett cesar 2024 12:46pm Chest discomfort inactive Rivera dumont 2024 12:46pm [facility] Work Phone: 1(423) 245-976212-10-2024 [facility] Medical Records Department [address] [place], [place] [address] [place] [address] History Physical Exam 07/31/2433 MR#: [id number] Acct: [id number] Name: SALTY IQBAL Rep #: [id number] : 1955 68 From: Giovanny Olea MD PCP: Dr. Shan Shelton, DO Status:[facility] Location: [place] [address] HPI - General HPI Narrative SALTY IQBAL, is a 68 M who presents for surveillance colonoscopy. His last colonoscopy was 5 years ago and 2 polyps were removed. He denies abdominal pain or blood in the stool. [facility] Medical History (Updated 07/31/24 @ 08:[address] Giovanny Olea MD) Wears hearing aid Loss of hearing Wears glasses Depression History of kidney stones High cholesterol Diverticulosis History of diverticulitis Former smoker Hypertension Cardiology follow-up encounter History of stress test Personal history of colonic polyps Obesity Erectile dysfunction GERD (gastroesophageal reflux disease) Atherosclerosis of coronary artery of [place] heart without angina pectoris Essential (primary) hypertension [...] disease Myocardial infarction, Onset Age: 45 [facility] CAD (coronary artery disease) STENTS Colon polyps Brother Heart disease Myocardial infarction, Onset Age: 50 CAD (coronary artery disease) CABG Colon polyps Father Cancer Mother CAD (coronary artery disease) CABGx x 3 Colon polyps Other Atherosclerosis of coronary artery of [place] heart without angina pectoris Dyslipidemia Essential (primary) [...] No Hx Cardiac Catheterization: Yes (2006 at [facility], see [facility] now) Hx Cardiac Surgery/Stents/Etc.: Yes Hx Stress Test: Yes (02/2019) Hx Pain in Legs when Walking/Leg Cramps: No Respiratory Chronic Cough: No HX of Shortness of Breath: No Hoarseness: No Hx Chronic Obstructive Pulmonary Disease (COPD): No Hx Asthma: No Hx Emphysema: No H (more content not included)...[facility]11-16-2007 Evaluation note* Diagnosis Onset Date Resolution Status Dyslipidemia chronic Essential (primary) hypertension chronic History of coronary artery stent placement July 072006 resolved [facility] Work Phone: Evaluation noteNo assessment information available [facility] Work Phone: Reason for referral (narrative)No reason for referral information available[facility] Work Phone: Chief Complaint and Reason for [...] Other microscopic he maturia EORDER ROOF AND NIKITA ORDER Chief Complaint Other microscopic he maturia EORDER ROOF AND NIKITA ORDER PERSISTENT VENTURA, [facility] BRAIN CANCER Chief Complaint Admit Date 1 Y FU March 21, 2025 9:31 am Reason for Visit Admit Date Dyslipidemia March 21, 2025 9:31 am Essential (primary) hypertension March 212024 9:31am History of coronary artery stent placeme nt March 21, 2025 9:31am Chief Complaint Admit Date 1 Y FU March 21, 2025 9:31 am abd pain May 14, 2025 3:18pm S/P [facility] 05/14May 15, 2025 12:46pm Reason for Visit Admit Date Dyslipidemia March 21, 2025 9:31 am Essential (primary) hypertension March 212024 9:31am History of coronary artery stent placeme nt March 21, 2025 9:31am Dyslipidemia May 15, 2025 12:46pm Essential (primary) hypertension Septemb 2024 12:46pm History of coronary artery stent placeme nt May 15, 2025 12:46pm Chest discomfort May 15, 2025 12:46pm Family History No Family History Records Found [...] Unknown Atherosclerosis of c oronary artery of [place] heart without angina pectoris Unknown brother Cardiac disease Unknown Myocardial infarction 46 Coronary artery disease Unknown Myocardial infarction 50 father Malignant neoplasm Unknown mother Coronary artery disease Unknown Relationship Condition Age at Onset Recorded Date/T smita Not Specified Essential hypertension Unknown History of coronary artery stent placement Unknown Dyslipidemia Unknown Atherosclerosis of c oronary artery of [place] heart without angina pectoris Unknown brother Cardiac disease Unknown Myocardial infarction 46 Coronary artery disease Unknown Polyp of colon Unknown Myocardial infarction 50 father Malignant neoplasm Unknown mother Coronary artery disease Unknown Advance Directives No Advanced Directives Records Found Advance Directive Response Recorded Date/ Time Living Will Yes June 14 9:21am Power of Marking Stitcher Yes June 14, 2019 9:21am Advance Directive Response Recorded Date/ Time Living Will Yes June 14 8:21am Power of Marking Stitcher Yes June 14, 2019 8:21am Advance Directive Response Recorded Date/ Time Living Will Yes June 14 9:21am Do you have a Healthcare Power of Marking Stitcher? Yes June 14, 2019 9:21am Advance Directive Response Recorded Date/ Time Living Will Yes June 14 9:21am Do you have a Healthcare Power of Marking Stitcher? Yes June 14, 2019 9:21am Do you have a Healthcare Power of Marking Stitcher? Yes May 14, 2025 4:00pm Summary Purpose Additional Source Comments Goals (unrecognized [...] Role Status Dates Dr. Shan Shelton DO Family Provider Active Dr. Shan Shelton DO Primary Care Provider Active Team Status: Inactive Member Role Status Dates Dr. Shan Shelton DO Primary Care Provider, Referrin g Provider Active Dr. Jose Lane MD Attending Provider Active Team Status: Inactive Member Role Status Dates Dr. Shan Shelton DO Primary Care Provider Active Enriqueta Neal INDUSTRIAL EDUCATION INSTRUCTOR, INDUSTRIAL EDUCATION INSTRUCTOR-C Attending Provider, Referring Pro vider Active Team Status: Active Member Role Status Dates Dr. Shan Shelton DO Primary Care Provider Active Dr. Jose Lane MD Attending Provider, Referring Provider, Other Provider Active Team Status: Active Member Role Status Dates Dr. Shan Shelton DO Primary Care Provider Active Emma Ferreira NP, INDUSTRIAL EDUCATION INSTRUCTOR-C Attending Provider Active Team Status: Inactive Member [...] Prov ider, Attending Provider, Referring Provider Active Enriqueta Neal INDUSTRIAL EDUCATION INSTRUCTOR, INDUSTRIAL EDUCATION INSTRUCTOR-C Other Provider Active Team Status: Active Member Role/Relationship Status Dates Dr. Shan Shelton DO Family Provider Active Dr. Shan Shelton DO Primary Care Provider Active Team Status: Inactive Member Role/Relationship Status Dates Dr. hSan Shelton DO Primary Care Provider Active Start: [...] April 05, 2025 End: April 05, 2025 Team Status: Active Member Role/Relationship Status Dates Dr. Shan Shelton DO Primary care physician Active Team Status: Inactive Member Role/Relationship Status Dates Dr. Shan Shelton DO Primary care physician Active Start: March 21, 2025 End: March 21, 2025 Dr. Shan Shelton DO Referring Provider Active Start: March 21, 2025 End: March 21, 20[address]. [address] MD Attending physician Active Start: March 21, 2025 End: March 21, 2025 Team Status: Inactive Member Role/Relationship Status Dates Dr. Shan Shelton DO Primary care physician Active Start: April 05, 2025 End: April 05, 2025 Dr. Shan Shelton DO Attending physician Active Start: April 05, 2025 End: April 05, 2025 Dr. Shan Shelton DO Referring Provider Active Start: April 05, 2025 End: April 05, 2025 Team Status: Inactive Member Role/Relationship Status Dates Dr. Shan Shelton DO Primary care physician Active Start: May 14, 2025 End: May 14, 2025 Dr. Prakash Archibald MD Attending physician Active St art: May 14, 2025 End: May 14, 2025 Dr. Prakash Archibald MD Emergency Department Physician Active Start: May 14, 2025 End: May 14, 2025 Team Status: Inactive Member Role/Relationship Status Dates Dr. Shan Shelton DO Primary care physician Active Start: May 15, 2025 End: May 15, 2025 Dr. Shan Shelton DO Referring Provider Active Start: May 15, 2025 End: May 15, 2025 ЕКАТЕРИНА Sequeira Attending physician Active Start: May 15, 2025 End: May 15, 2025 Team Status: Active Member Role/Relationship Status Dates Dr. Shan Shelton DO Primary care physician Active Start: May 15, 2025 ЕКАТЕРИНА Sequeira Attending physician Active Start: May 15, 2025 ЕКАТЕРИНА Sequeira Referring Provider Active Start: May 15, 2025 (unrecognized sect ion and content) No Status Records Found INFORMATION SOURCE (unrecogn ized section and content) DATE CREATED AUTHOR 06/09/2025 [facility] FOR RECORDS PERTAINING TO PATIENTS WHO ARE [...] BE BASED ON THE PRIMARY CLINICAL RECORDS. [employer] provides no warranty or guarantee of the accuracy or completeness of information in this document.
--- NOTE | 2025-06-10 09:26 | CL.D_ITS ---
Patient Name: SALTY MARTÍNEZ Study Date: 06/10/2025 Performing: Jose Lane MD Ht: 71 inches 180.34 cm : 1955 Wt: 265 lbs 120.2 kg Age: 69 Gender: male BSA: 2.38 PROCEDURE(S) PERFORMED DC01-([id number])LHC/COR/LV CLINICAL PROFILE AND INDICATIONS Indications: Suspected CAD Heart Failure: None Stress/Imaging Stress/Image Study Performed: No CAD Presentations: Symptom unlikely to be ischemic. CONCLUSIONS Nonobstructive coronary artery disease noted. Previous stenting the obtuse marginal branch is patent and mild to moderate disease noted in the proximal and mid right coronary artery. RECOMMENDATIONS Medical therapy DESCRIPTION OF PROCEDURE The patient arrived to the procedure lab. The risks and benefits of the procedure as well as a full description of our services here and current unavailability of surgical backup were fully explained to the patient and/or their significant other prior to the catheterization. The Timeout was completed, verifying the correct patient and procedure. The patient's procedural site was prepped and draped in the usual fashion. Local anesthetic was given subcutaneously to right radial region with Lidocaine 2%. Using a modified Seldinger technique, arterial access was obtained via the right radial artery, a 6Fr sheath was inserted. Left Coronary Artery selective angiography was performed in multiple views using a 5 Fr. 4.0 Al[place] catheter. Right Coronary Artery selective angiography was then performed in multiple views using a 5 Fr. JR 5 catheter. Left Ventriculography was performed in CACERES projection using a 5 Fr. Pigtail catheter. LV to AO pullback pressures were then recorded.The arterial sheath was pulled and a TR Band was applied for hemostasis 9cc air CORONARY ANGIOGRAPHY DOMINANCE: Right Dominant LEFT HEART ASSESSMENT Left Ventricular Ejection Fraction: by LV Gram 55 % Normal LV wall motion Normal Left Ventricular systolic function LEFT MAIN: Angiographically normal LEFT ANTERIOR DESCENDING ARTERY: Mild luminal irregularities less than 30% CIRCUMFLEX ARTERY: Circumflex artery is a large nondominant vessel. There is a first obtuse marginal branch with no significant stenosis. A second large obtuse marginal branch for which a stent was placed in coming into the AV groove branch with minimal in-stent stenosis. The AV groove branch also was noted to have no significant disease. RIGHT CORONARY ARTERY: Dominant large right coronary artery with proximal 30% and mid 40% irregular stenosis. Mild distal luminal irregularities present. COMPLICATIONS No Complications PROCEDURE MEDICATIONS Versed 1 mg IV Fentanyl 50 mcg IV Oxygen: 2 L/min via nasal cannula Heparin given IA 06/10/2025 08:25:46 Verapamil 2.5mg, Ntg 100mcgs, 3000 units of Heparin given IA 06/10/2025 08:25:46 IV Bolus: .9 NaCl 500 ml total 06/10/2025 08:44:51 SUMMARY OF HEMODYNAMIC DATA Time AIR REST ECG 07:23:18 Art 137/78 (99) 08:46:40 AO 123/76 (98) SA 08:48:48 LV 94/16, 25 08:59:13 LV 102/16, 22 08:59:22 LVp 94/51, 63 08:59:50 AOp 110/67 (87) 08:59:57 09:16:[address] MD On 06/10/2025 09:24:[address] MD
== END 2025-06-10 10:35 | disposition home or self-care (01) ==
PROVIDERS: PCP Family Medicine; Referring Provider Internal Medicine Cardiovascular Disease; Visit Provider Internal Medicine Cardiovascular Disease
DX: I25.10 Atherosclerotic heart disease of native coronary artery without angina pectoris (principal); Z79.82 Long term (current) use of aspirin; Z79.899 Other long term (current) drug therapy; I10 Essential (primary) hypertension; E78.00 Pure hypercholesterolemia, unspecified; K21.9 Gastro-esophageal reflux disease without esophagitis; Z87.891 Personal history of nicotine dependence; R07.89 Other chest pain; Z95.5 Presence of coronary angioplasty implant and graft
CPT/HCPCS: 93458; 99152; 99153; Q9967; C1769; C1894